=== PATIENT | female | born 1970 | race Caucasian/White ===

== ENCOUNTER 2016-10-22 08:24 | Emergency (ER) | payer OTHER ==
[~2016-10-22] VITALS: Ht 170.1 cm; Wt 106.1 kg
[~2016-10-22 08:24] MED LIST: AMBIEN10 MG PO; ANAPROX DS550 MG PO; ATARAX25 MG PO; AVPAK AZITHROM250 M1 PO; BACTRIM DS 8001 TA1 PO; BUDEPRION XL150 MG PO; CIPRO500 MG PO; CIPROFLOXACIN500 MG PO; CLARITIN10 MG PO; CLEOCIN150 MG PO; CYCLOBENZAPRINE10 MG PO; Carafate1 GM/10 ML PO; DAILY VITE W/IR1 TA1 PO; DAYPRO600 M1 PO; DIOVAN; DYAZIDE 25 MG-31 CAP PO; EES400 MG PO; ELIMITE 5%60 GM PO; FEOSOL,FER300 MG/5 M PO; FERROUS SULFAT325 MG PO; FLEXERIL5 MG PO; FLONASE ALLERG9.9 ML NS; FLOVENT 110 M110 MCG PO; FLOXIN 5 ML5 M1 OT; FLUOXETINE HCL10 MG PO; GABAPENTIN100 M2 PO; GOOD NEIGHBOR L10 MG PO; GOOD SENSE ALLE10 MG PO; HYDROCODONE BIT1 T11 PO; HYDROXYZINE PAM25 MG PO; KEFLEX500 MG PO; LEVAQUIN750 MG PO; LORAZEPAM1 MG PO; MACROBID100 M1 PO; MAGNESIUM OXID400 MG PO; MAPAP325 MG PO; MOTRIN600 MG PO; MOTRIN800 MG PO; Micro K10 MEQ PO; NAPROSYN500 MG PO; NASONEX0.05 MG/AC NS; NORCO 5-325 TA1 EACH PO; OVRAL-21 50 MCG1 TAB PO; Oscal,Oyster S500 MG PEG; PAXIL30 MG PO; PREDNICOT20 MG PO; PREDNISONE20 M1 PO; PREVACID SOLUTA30 MG PEG; PREVACID30 M3 PO; PRILOSEC20 MG PO; PROTONIX40 M1 IV; PROTONIX40 MG PO; PROVENTIL0.09 MG/AC INH; REGLAN5 MG PO; REMERON15 MG PO; RISPERIDONE1 M1 PO; ROBAXIN750 MG PO; SEROQUEL XR400 MG PO; SERTRALINE HYD100 MG PO; TESSALON PERLE200 MG PO; TRAMADOL HCL50 MG PO; TRAZADONE HYDR100 MG PO; ULTRAM50 MG PO; VENTOLIN H0.09 MG/AC INH; VIBRAMYCIN100 MG PO; VICODIN 5/500 505 MG PO; VISTARIL100 MG PO; VITAMIN C500 M1 PO; VITAMIN D2400 IU PO; VITAMIN D31000 IU PEG; VITAMIN D31000 IU PO; VOLTAREN75 MG PO; XANAX0.25 MG PO; ZANTAC150 MG PO; ZESTRIL5 MG PO; ZITHROMAX Z PA250 MG PO; ZITHROMAX250 MG PO; ZOFRAN ODT4 MG SL; ZOLOFT100 MG PO; ZYRTEC10 MG PO; Zestril,Prinivil5 MG PEG; Zofran4 MG PO
[2016-10-22] MEDS ORDERED: TYLENOL325 M1 PO (10:59)
== END 2016-10-22 11:46 | disposition home or self-care (01) ==
LOC: ED 08:24
DX: S09.90XA Unspecified injury of head, initial encounter (principal); M25.511 Pain in right shoulder; M54.2 Cervicalgia; F41.1 Generalized anxiety disorder; J45.909 Unspecified asthma, uncomplicated; F32.9 Major depressive disorder, single episode, unspecified; Z88.0 Allergy status to penicillin; Z88.6 Allergy status to analgesic agent; Z79.899 Other long term (current) drug therapy; W01.0XXA Fall on same level from slipping, tripping and stumbling without subsequent striking against object, initial encounter; Y93.89 Activity, other specified; Y92.89 Other specified places as the place of occurrence of the external cause; Y99.8 Other external cause status

== ENCOUNTER 2016-12-20 19:30 | Emergency (ER) | payer OTHER ==
[~2016-12-20] VITALS: Ht 170.1 cm; Wt 156.5 kg
[~2016-12-20 19:30] MED LIST changes: +TYLENOL325 M1 PO
[2016-12-20] MEDS ORDERED: PHARMASSURE VI500 MG PO (19:38)
[2016-12-20] MEDS ORDERED: BUSPAR5 MG PO (19:38)
[2016-12-20] MEDS ORDERED: HYDROXYZINE PAM50 MG PO (19:38)
[2016-12-20] MEDS ORDERED: FLUOXETINE HCL10 MG PO (19:39)
[2016-12-20] MEDS ORDERED: TRAZADONE HYDR100 MG PO (19:39)
[2016-12-20] MEDS ORDERED: NOVAPLUS V0.09 MG/Ac INH (19:39)
[2016-12-20] MEDS ORDERED: ESCITALOPRAM OX10 MG PO (19:40)
[2016-12-20] MEDS ORDERED: ARIPIPRAZOLE15 MG PO (19:40)
[2016-12-20 20:06] LABS: BASO # 0.1 10*3/uL (0.0-0.1); BASO % 0.6 % (0.0-1.0); EOS # 0.1 10*3/uL (0.0-0.4); EOS % 1.5 % (1.0-4.0); HEMATOCRIT 37.6 % (37.0-47.0); HEMOGLOBIN 11.7 g/dl (12.0-16.0); LYMPH # 1.2 10*3/uL (1.3-4.4); LYMPH % 14.2 % (27.0-41.0); MEAN CELL VOLUME 84.7 fl (81.0-99.0); MEAN CORPUSCULAR HGB 26.4 pg (27.0-31.0); MEAN CORPUSCULAR HGB CONC 31.1 g/dl (33.0-37.0); MEAN PLATELET VOLUME 10.9 fl (9.6-12.3); MONO # 0.5 10*3/uL (0.1-1.0); MONO % 6.2 % (3.0-9.0); NEUT # 6.6 10*3/uL (2.3-7.9); NEUT % 77.3 % (47.0-73.0); PLATELET COUNT AUTOMATED 251 10*3/uL (130-400); RED BLOOD COUNT 4.44 10*6/uL (4.10-5.10); RED CELL DISTRI WIDTH 14.1 % (0-14.5); WHITE BLOOD COUNT 8.5 10*3/uL (4.8-10.8)
[2016-12-20 20:21] LABS: ALBUMIN 3.4 gm/dl (3.1-4.5); ALKALINE PHOSPHATASE 70 U/L (45-117); BILIRUBIN, TOTAL 0.4 mg/dl (0.2-1.0); BUN 12 mg/dl (7-24); C-REACTIVE PROTEIN 0.81 MG/DL (0-0.3); CARBON DIOXIDE 23 mmol/L (21-32); CHLORIDE 107 mmol/L (98-107); EST GLOM FILT AFRICAN AMERICAN > 60 ml/min; GLUCOSE 107 mg/dL (65-99); POTASSIUM 3.9 mmol/L (3.5-5.1); SGOT/AST 21 IU/L (3-35); SGPT/ALT 16 U/L (12-78); SODIUM 142 mmol/L (136-145); TOTAL PROTEIN 7.6 gm/dL (6.4-8.2)
[2016-12-20 20:23] LABS: B-hCG (QUALITATIVE) NEGATIVE (NEGATIVE)
[2016-12-20 20:34] LABS: BILIRUBIN NEGATIVE (NEGATIVE); BLOOD 3+ (NEGATIVE); CLARITY SL CLOUDY (CLEAR); COLOR YELLOW (YELLOW); GLUCOSE NEGATIVE (NEGATIVE); KETONE NEGATIVE (NEGATIVE); LEUKO ESTERASE NEGATIVE (NEGATIVE); NITRITE NEGATIVE (NEGATIVE); PH 5.5 (5.0-9.0); PROTEIN TRACE (NEGATIVE); SPECIFIC GRAVITY >= 1.030 (1.005-1.030)
[2016-12-20 20:40] LABS: BACTERIA 2+; MUCOUS 1+; URINE REFLEX COMMENT YES (NO)
[2016-12-20] MEDS ORDERED: MACROBID100 M1 PO (21:11)
== END 2016-12-20 21:33 | disposition home or self-care (01) ==
LOC: ED 19:30
PROVIDERS: Emergency Medicine Emergency Medical Services
DX: N93.8 Other specified abnormal uterine and vaginal bleeding (principal); D50.0 Iron deficiency anemia secondary to blood loss (chronic); N39.0 Urinary tract infection, site not specified; R31.9 Hematuria, unspecified; E78.00 Pure hypercholesterolemia, unspecified; J45.909 Unspecified asthma, uncomplicated; Z88.0 Allergy status to penicillin; Z88.6 Allergy status to analgesic agent; Z79.899 Other long term (current) drug therapy

== ENCOUNTER → 2016-12-23 | Outpatient (CLI) | payer OTHER ==
[~2016-12-23] MED LIST changes: +ARIPIPRAZOLE15 MG PO; +BUSPAR5 MG PO; +ESCITALOPRAM OX10 MG PO; +HYDROXYZINE PAM50 MG PO; +NOVAPLUS V0.09 MG/Ac INH; +PHARMASSURE VI500 MG PO
[2016-12-23 10:23] LABS: BASO # 0.1 10*3/uL (0.0-0.1); BASO % 0.7 % (0.0-1.0); EOS # 0.1 10*3/uL (0.0-0.4); EOS % 1.6 % (1.0-4.0); HEMOGLOBIN 11.4 g/dl (12.0-16.0); LYMPH # 1.2 10*3/uL (1.3-4.4); LYMPH % 17.7 % (27.0-41.0); MEAN CELL VOLUME 83.7 fl (81.0-99.0); MEAN CORPUSCULAR HGB 26.5 pg (27.0-31.0); MEAN CORPUSCULAR HGB CONC 31.7 g/dl (33.0-37.0); MEAN PLATELET VOLUME 10.9 fl (9.6-12.3); MONO # 0.5 10*3/uL (0.1-1.0); MONO % 6.9 % (3.0-9.0); NEUT # 4.9 10*3/uL (2.3-7.9); NEUT % 72.8 % (47.0-73.0); PLATELET COUNT AUTOMATED 257 10*3/uL (130-400); RED CELL DISTRI WIDTH 14.1 % (0-14.5); WHITE BLOOD COUNT 6.7 10*3/uL (4.8-10.8)
[2016-12-23 10:51] LABS: ALBUMIN 3.4 gm/dl (3.1-4.5); ALKALINE PHOSPHATASE 68 U/L (45-117); BILIRUBIN, TOTAL 0.4 mg/dl (0.2-1.0); BUN 9 mg/dl (7-24); CARBON DIOXIDE 23 mmol/L (21-32); CHLORIDE 106 mmol/L (98-107); CHOLESTEROL 150 mg/dL (<200); EST GLOM FILT AFRICAN AMERICAN > 60 ml/min; GLUCOSE 87 mg/dL (65-99); HDL CHOLESTEROL 36 mg/dl (40-60); LDL CHOLESTEROL 97 mg/dL (9-159); SGOT/AST 27 IU/L (3-35); SGPT/ALT 26 U/L (12-78); SODIUM 138 mmol/L (136-145); TOTAL PROTEIN 7.2 gm/dL (6.4-8.2); TRIGLYCERIDES 86 mg/dl (<150); VLDL CHOLESTEROL 17 mg/dL (6-40)
== END | disposition home or self-care (01) ==
LOC: LAB 09:56 → MAMMO 11:30
PROVIDERS: Internal Medicine
DX: Z12.31 Encounter for screening mammogram for malignant neoplasm of breast (principal); E78.00 Pure hypercholesterolemia, unspecified; I10 Essential (primary) hypertension

== ENCOUNTER 2016-12-28 18:12 | Inpatient (IN) | payer OTHER ==
[~2016-12-28] VITALS: Ht 170.2 cm; Wt 115.3 kg
[2016-12-28 18:30] VITALS: BP 138/72
[2016-12-28 18:47] LABS: BASO # 0.1 10*3/uL (0.0-0.1); BASO % 0.7 % (0.0-1.0); EOS # 0.2 10*3/uL (0.0-0.4); EOS % 2.1 % (1.0-4.0); HEMATOCRIT 35.1 % (37.0-47.0); LYMPH # 1.3 10*3/uL (1.3-4.4); LYMPH % 18.1 % (27.0-41.0); MEAN CELL VOLUME 84.2 fl (81.0-99.0); MEAN CORPUSCULAR HGB 26.4 pg (27.0-31.0); MEAN CORPUSCULAR HGB CONC 31.3 g/dl (33.0-37.0); MEAN PLATELET VOLUME 10.4 fl (9.6-12.3); MONO # 0.5 10*3/uL (0.1-1.0); MONO % 6.7 % (3.0-9.0); NEUT # 5.1 10*3/uL (2.3-7.9); NEUT % 72.1 % (47.0-73.0); PLATELET COUNT AUTOMATED 240 10*3/uL (130-400); RED BLOOD COUNT 4.17 10*6/uL (4.10-5.10); RED CELL DISTRI WIDTH 13.9 % (0-14.5); WHITE BLOOD COUNT 7.1 10*3/uL (4.8-10.8)
[2016-12-28 19:05] LABS: ALBUMIN 3.2 gm/dl (3.1-4.5); ALKALINE PHOSPHATASE 66 U/L (45-117); BILIRUBIN, TOTAL 0.3 mg/dl (0.2-1.0); BUN 14 mg/dl (7-24); CARBON DIOXIDE 27 mmol/L (21-32); CHLORIDE 104 mmol/L (98-107); EST GLOM FILT AFRICAN AMERICAN > 60 ml/min; GLUCOSE 101 mg/dL (65-99); SGOT/AST 15 IU/L (3-35); SGPT/ALT 16 U/L (12-78); SODIUM 138 mmol/L (136-145); TOTAL PROTEIN 6.8 gm/dL (6.4-8.2)
[2016-12-28 19:07] LABS: TROPONIN I < 0.015 ng/ml (<0.045)
[2016-12-28 19:11] VITALS: BP 137/80
[2016-12-28 19:13] LABS: PROTHROMBIN TIME 10.3 SECONDS (9.0-12.4)
[2016-12-28 20:00] VITALS: BP 139/75
[2016-12-28 20:06] VITALS: BP 125/78
[2016-12-28 20:45] VITALS: BP 132/74
[2016-12-29] VITALS: BP 113/66
[2016-12-29 06:27] LABS: BASO % 0.7 % (0.0-1.0); EOS # 0.1 10*3/uL (0.0-0.4); EOS % 1.8 % (1.0-4.0); LYMPH # 1.2 10*3/uL (1.3-4.4); MEAN CELL VOLUME 83.9 fl (81.0-99.0); MEAN CORPUSCULAR HGB 26.4 pg (27.0-31.0); MEAN CORPUSCULAR HGB CONC 31.4 g/dl (33.0-37.0); MEAN PLATELET VOLUME 11.2 fl (9.6-12.3); MONO # 0.5 10*3/uL (0.1-1.0); MONO % 7.8 % (3.0-9.0); NEUT # 4.1 10*3/uL (2.3-7.9); NEUT % 69.2 % (47.0-73.0); PLATELET COUNT AUTOMATED 233 10*3/uL (130-400); RED BLOOD COUNT 4.17 10*6/uL (4.10-5.10); RED CELL DISTRI WIDTH 13.9 % (0-14.5)
[2016-12-29 07:00] LABS: BUN 13 mg/dl (7-24); CARBON DIOXIDE 27 mmol/L (21-32); CHLORIDE 108 mmol/L (98-107); CHOLESTEROL 162 mg/dL (<200); EST GLOM FILT AFRICAN AMERICAN > 60 ml/min; GLUCOSE 92 mg/dL (65-99); MAGNESIUM 2.2 mg/dL (1.5-2.1); PHOSPHOROUS 4.1 mg/dL (2.5-4.9); POTASSIUM 4.3 mmol/L (3.5-5.1); PROTHROMBIN TIME 10.5 SECONDS (9.0-12.4); SGOT/AST 12 IU/L (3-35); SGPT/ALT 17 U/L (12-78); SODIUM 142 mmol/L (136-145); TRIGLYCERIDES 78 mg/dl (<150); VLDL CHOLESTEROL 16 mg/dL (6-40)
[2016-12-29 07:08] LABS: ALKALINE PHOSPHATASE 59 U/L (45-117); BILIRUBIN, TOTAL 0.3 mg/dl (0.2-1.0); FREE T4 0.96 ng/dl (0.76-1.46); HDL CHOLESTEROL 40 mg/dl (40-60); LDL CHOLESTEROL 106 mg/dL (9-159); TOTAL PROTEIN 6.7 gm/dL (6.4-8.2)
[2016-12-29 07:38] LABS: FOLIC ACID 5.84 ng/mL (>5.38); VITAMIN D, 25-HYDROXY 9.7 ng/mL (30-100)
[2016-12-29 08:00] VITALS: BP 109/69
[2016-12-29] MEDS ORDERED: D-1000 185 MG-11 TAB PO (11:51)
[2016-12-29 12:00] VITALS: BP 119/83
== END 2016-12-29 13:07 | disposition home or self-care (01) | DRG 313 ==
LOC: ED 18:12 → 5E 19:48 → EDHOLD 19:48 → 5E 20:35
PROVIDERS: Emergency Medicine; Hospitalist
DX: R07.89 Other chest pain (principal); E44.0 Moderate protein-calorie malnutrition; K27.9 Peptic ulcer, site unspecified, unspecified as acute or chronic, without hemorrhage or perforation; D64.9 Anemia, unspecified; J45.909 Unspecified asthma, uncomplicated; F41.1 Generalized anxiety disorder; F33.41 Major depressive disorder, recurrent, in partial remission; E55.9 Vitamin D deficiency, unspecified; I10 Essential (primary) hypertension; Z88.0 Allergy status to penicillin; Z88.6 Allergy status to analgesic agent; Z82.49 Family history of ischemic heart disease and other diseases of the circulatory system; Z86.73 Personal history of transient ischemic attack (TIA), and cerebral infarction without residual deficits; Z82.0 Family history of epilepsy and other diseases of the nervous system; Z98.51 Tubal ligation status; Z87.891 Personal history of nicotine dependence; Z79.51 Long term (current) use of inhaled steroids; Z79.899 Other long term (current) drug therapy; Z68.39 Body mass index [BMI] 39.0-39.9, adult

== ENCOUNTER 2017-02-02 14:47 | Emergency (ER) | payer OTHER ==
[~2017-02-02] VITALS: Ht 170.1 cm; Wt 104.3 kg
[~2017-02-02 14:47] MED LIST changes: +D-1000 185 MG-11 TAB PO
[2017-02-02] MEDS ORDERED: Kenalog 0.5% Cr15 GM T (15:35)
[2017-02-02] MEDS ORDERED: CLINDAMYCIN HC300 MG PO (15:35)
== END 2017-02-02 18:03 | disposition home or self-care (01) ==
LOC: ED 14:47
DX: S40.862A Insect bite (nonvenomous) of left upper arm, initial encounter (principal); S40.861A Insect bite (nonvenomous) of right upper arm, initial encounter; S80.862A Insect bite (nonvenomous), left lower leg, initial encounter; S80.861A Insect bite (nonvenomous), right lower leg, initial encounter; S50.811A Abrasion of right forearm, initial encounter; Z88.6 Allergy status to analgesic agent; Z88.0 Allergy status to penicillin; Z79.899 Other long term (current) drug therapy; Z87.891 Personal history of nicotine dependence; W57.XXXA Bitten or stung by nonvenomous insect and other nonvenomous arthropods, initial encounter; W54.0XXA Bitten by dog, initial encounter; Y93.9 Activity, unspecified; Y92.9 Unspecified place or not applicable; Y99.9 Unspecified external cause status

== ENCOUNTER 2017-02-13 19:28 | Emergency (ER) | payer OTHER ==
[~2017-02-13] VITALS: Ht 170.1 cm; Wt 99.8 kg
[~2017-02-13 19:28] MED LIST changes: +CLINDAMYCIN HC300 MG PO; +Kenalog 0.5% Cr15 GM T
[2017-02-13] MEDS ORDERED: CYCLOBENZAPRINE10 MG PO (20:22)
== END 2017-02-13 20:30 | disposition home or self-care (01) ==
LOC: ED 19:28
DX: M25.512 Pain in left shoulder (principal); J45.909 Unspecified asthma, uncomplicated; I10 Essential (primary) hypertension; E78.00 Pure hypercholesterolemia, unspecified; Z87.11 Personal history of peptic ulcer disease; Z86.73 Personal history of transient ischemic attack (TIA), and cerebral infarction without residual deficits; Z98.51 Tubal ligation status; Z98.890 Other specified postprocedural states; Z87.891 Personal history of nicotine dependence; Z79.899 Other long term (current) drug therapy; Z88.0 Allergy status to penicillin; Z88.6 Allergy status to analgesic agent; W07.XXXA Fall from chair, initial encounter; Y93.89 Activity, other specified; Y92.89 Other specified places as the place of occurrence of the external cause; Y99.9 Unspecified external cause status

== ENCOUNTER 2017-03-03 19:42 | Emergency (ER) | payer OTHER ==
[~2017-03-03] VITALS: Ht 170.1 cm; Wt 108.4 kg
== END 2017-03-03 22:23 | disposition home or self-care (01) ==
LOC: ED 19:42
DX: S80.11XA Contusion of right lower leg, initial encounter (principal); G62.9 Polyneuropathy, unspecified; Z88.0 Allergy status to penicillin; Z88.6 Allergy status to analgesic agent; Z79.899 Other long term (current) drug therapy; Z87.891 Personal history of nicotine dependence; W18.39XA Other fall on same level, initial encounter; Y93.89 Activity, other specified; Y92.481 Parking lot as the place of occurrence of the external cause; Y99.8 Other external cause status

== ENCOUNTER 2017-04-01 07:45 | Emergency (ER) | payer OTHER ==
[~2017-04-01] VITALS: Ht 170.1 cm; Wt 96.6 kg
[2017-04-01] MEDS ORDERED: EQ SINUS CONGE1 EAC1 PO (08:05)
== END 2017-04-01 08:08 | disposition home or self-care (01) ==
LOC: ED 07:45
DX: J06.9 Acute upper respiratory infection, unspecified (principal); Z87.891 Personal history of nicotine dependence; I10 Essential (primary) hypertension; E78.00 Pure hypercholesterolemia, unspecified; Z86.73 Personal history of transient ischemic attack (TIA), and cerebral infarction without residual deficits; Z88.0 Allergy status to penicillin; Z88.6 Allergy status to analgesic agent

== ENCOUNTER 2017-04-22 13:00 | Inpatient (IN) | payer OTHER ==
[~2017-04-22] VITALS: Ht 170.2 cm; Wt 113.9 kg
[~2017-04-22 13:00] MED LIST changes: +EQ SINUS CONGE1 EAC1 PO
[2017-04-22 13:05] VITALS: BP 142/89
[2017-04-22 13:19] LABS: BILIRUBIN NEGATIVE (NEGATIVE); BLOOD NEGATIVE (NEGATIVE); CLARITY CLEAR (CLEAR); COLOR YELLOW (YELLOW); GLUCOSE NEGATIVE (NEGATIVE); KETONE NEGATIVE (NEGATIVE); LEUKO ESTERASE NEGATIVE (NEGATIVE); NITRITE NEGATIVE (NEGATIVE); SPECIFIC GRAVITY <= 1.005 (1.005-1.030); UROBILINOGEN 0.2 E.U./dl (0.2-1.0)
[2017-04-22 13:44] LABS: WBC 0-2 wbc/hpf (0-5)
[2017-04-22 13:55] LABS: BASO % 0.3 % (0.0-1.0); HEMATOCRIT 35.8 % (37.0-47.0); HEMOGLOBIN 11.2 g/dl (12.0-16.0); LYMPH # 0.5 10*3/uL (1.3-4.4); LYMPH % 7.4 % (27.0-41.0); MEAN CORPUSCULAR HGB 25.3 pg (27.0-31.0); MEAN CORPUSCULAR HGB CONC 31.3 g/dl (33.0-37.0); MEAN PLATELET VOLUME 10.8 fl (9.6-12.3); MONO # 0.3 10*3/uL (0.1-1.0); MONO % 4.3 % (3.0-9.0); NEUT # 5.7 10*3/uL (2.3-7.9); NEUT % 87.2 % (47.0-73.0); PLATELET COUNT AUTOMATED 227 10*3/uL (130-400); RED BLOOD COUNT 4.42 10*6/uL (4.10-5.10); WHITE BLOOD COUNT 6.5 10*3/uL (4.8-10.8)
[2017-04-22 14:01] LABS: ACT PARTIAL THROMBO TIME 26.9 SECONDS (20.8-31.5)
[2017-04-22 14:09] LABS: ALBUMIN 3.2 gm/dl (3.1-4.5); ALKALINE PHOSPHATASE 63 U/L (45-117); BETA-HCG, QUANT < 1.0 mIU/mL (1-3); BUN 10 mg/dl (7-24); CHLORIDE 105 mmol/L (98-107); CREATININE 0.68 mg/dL (0.55-1.02); LIPASE 88 U/L (73-393); MAGNESIUM 1.9 mg/dL (1.5-2.1); SGOT/AST 13 IU/L (3-35); SGPT/ALT 14 U/L (12-78); SODIUM 136 mmol/L (136-145); TOTAL PROTEIN 6.8 gm/dL (6.4-8.2); TROPONIN I < 0.015 ng/ml (<0.045)
--- NOTE | 2017-04-22 15:45 | NUR ---
A 47, admitted to 5E, under the services of ROHAN Gomez DO with a diagnosis of CHEST PAIN, R/O NE, RIB PAIN WITH COUGH AND N/V X 1 WEEK. Chief complaint is N/V SINCE YESTERDAY MORNING. STATES COUGH AND CHEST PAIN FROM COUGHING X 1 WEEK CHILLS/FEVER ON AND OFF. Patient arrived via stretcher from ER. Monitor applied. Initial assessment completed. Vital signs taken and recorded. ROHAN GOMEZ DO notified of admission to the unit. Orders received. See assessment for past medical history, medications and allergies. Patient and/or family oriented to unit. [address] visitation policy reviewed. Clothing/patient valuable form completed. AUTUMN MORRIS
[2017-04-22 16:00] VITALS: BP 143/78
[2017-04-22] MEDS ORDERED: PROVENTIL HFA6.7 GM INH (16:49)
[2017-04-22] MEDS ORDERED: PEPCID20 MG PO (16:51)
[2017-04-22] MEDS ORDERED: VERAPAMIL HCL120 M1 PO (16:52)
[2017-04-22] MEDS ORDERED: NEURONTIN600 MG PO (16:53)
[2017-04-22] MEDS ORDERED: CLONAZEPAM0.5 M1 PO (16:54)
[2017-04-22] MEDS ORDERED: DULOXETINE HCL30 MG PO (16:54)
[2017-04-22] MEDS ORDERED: FLOVENT HFA12 G1 INH (16:56)
--- NOTE | 2017-04-22 16:58 | NUR ---
MEDS VERIFIED WITH [facility]
--- NOTE | 2017-04-22 17:00 | NUR ---
NOTIFIED DR WAGONER'S ANSWERING SERVICE ABOUT CONSULT
--- NOTE | 2017-04-22 17:10 | NUR ---
NOTIFIED DR ALCOCER THAT MEDS WERE VERIFIED
--- NOTE | 2017-04-22 18:16 | NUR ---
PATIENT MEDICATED WITH PO TYLENOL FOR A HEADACHE RATED 3/10
--- NOTE | 2017-04-22 18:20 | NUR ---
CALLED PHARMACY ABOUT DONATELL ELIXIR. PHARMACY STATED THEY WOULD TUBE IT
[2017-04-22 20:00] VITALS: BP 101/55
--- NOTE | 2017-04-22 20:14 | NUR ---
EVE ARORA CP, BRANDEND, AND SOB AT THIS TIME. PATIENT DID STATE SHE HAS PAIN IN HER MID BACK AND LEFT SHOULDER. PAIN MEDICATIO WILL BE GIVEN WITH NIGHT TIME MEDICATIONS. NO OTHER CONCERNS FROM PATIENTS.
--- NOTE | 2017-04-22 23:00 | NUR ---
PATIENT RESTING IN BED WITH EYES CLOSED BILATERALLY. RESPIRATIONS ARE EASY AND REGULAR. NO S/S OF PAIN OR DISCOMFORT. CALL LIGHT IS IN REACH.
--- NOTE | 2017-04-22 23:28 | NUR ---
CHART CHECK COMPLETED AT THIS TIME.
[2017-04-23] VITALS: BP 101/55
--- NOTE | 2017-04-23 00:24 | NUR ---
PATIENT RESTING IN BED WITH EYS CLOSED BILATERALLY. RESPIRAITONS ARE EASY AND REGULAR. NO S/S OF DISCOMFORT. CALL LIGHT IS IN REACH.
--- NOTE | 2017-04-23 05:27 | NUR ---
PATIENT AROUSES EASILY FOR MORNING MEDICATIONS AT THIS TIME. ALERT AND ORIENTED. PATIENT VERBALIZED C/O BACK AND SHOULDER PAIN RATES THIS PAIN 6/10 ON PAIN SCALE. DESCRIBES PAIN ACHY. PRN NORCO GIVEN AT THIS TIME . CALL LIGHT IS IN REACH.
[2017-04-23 06:18] LABS: BASO % 0.6 % (0.0-1.0); EOS # 0.1 10*3/uL (0.0-0.4); EOS % 1.7 % (1.0-4.0); HEMATOCRIT 32.8 % (37.0-47.0); HEMOGLOBIN 10.2 g/dl (12.0-16.0); LYMPH # 0.8 10*3/uL (1.3-4.4); LYMPH % 22.8 % (27.0-41.0); MEAN CELL VOLUME 82.8 fl (81.0-99.0); MEAN CORPUSCULAR HGB 25.8 pg (27.0-31.0); MEAN CORPUSCULAR HGB CONC 31.1 g/dl (33.0-37.0); MEAN PLATELET VOLUME 11.2 fl (9.6-12.3); MONO # 0.3 10*3/uL (0.1-1.0); MONO % 9.5 % (3.0-9.0); NEUT # 2.2 10*3/uL (2.3-7.9); NEUT % 64.8 % (47.0-73.0); PLATELET COUNT AUTOMATED 167 10*3/uL (130-400); RED BLOOD COUNT 3.96 10*6/uL (4.10-5.10); RED CELL DISTRI WIDTH 14.1 % (0-14.5); WHITE BLOOD COUNT 3.5 10*3/uL (4.8-10.8)
[2017-04-23 06:31] LABS: ALBUMIN 2.8 gm/dl (3.1-4.5); ALKALINE PHOSPHATASE 58 U/L (45-117); BUN 8 mg/dl (7-24); CHLORIDE 105 mmol/L (98-107); CHOLESTEROL 118 mg/dL (<200); CREATININE 0.65 mg/dL (0.55-1.02); MAGNESIUM 2.1 mg/dL (1.5-2.1); PHOSPHOROUS 3.5 mg/dL (2.5-4.9); POTASSIUM 3.6 mmol/L (3.5-5.1); SGOT/AST 13 IU/L (3-35); SGPT/ALT 13 U/L (12-78); SODIUM 135 mmol/L (136-145); TOTAL PROTEIN 6.3 gm/dL (6.4-8.2); TRIGLYCERIDES 90 mg/dl (<150); VLDL CHOLESTEROL 18 mg/dL (6-40)
[2017-04-23 06:33] LABS: HDL CHOLESTEROL 27 mg/dl (40-60); LDL CHOLESTEROL 73 mg/dL (9-159)
--- NOTE | 2017-04-23 07:42 | NUR ---
Shift chart check completed.
[2017-04-23 08:00] VITALS: BP 90/56
[2017-04-23 08:35] LABS: VITAMIN D, 25-HYDROXY 6.5 ng/mL (30-100)
[2017-04-23] MEDS ORDERED: PROTONIX40 MG PO (12:00)
[2017-04-23] MEDS ORDERED: VITAMIN D31000 UNI1 PO (12:00)
--- NOTE | 2017-04-23 12:26 | NUR ---
PER ISAIAH VALENTINE TO D/C PATIENT WITHOUT SEEING CARDIOLOGY.
--- NOTE | 2017-04-23 13:23 | NUR ---
WENT OVER D/C INSTRUCTIONS WITH PATIENT. REMOVED IV WITH CATHETER INTACT AND BLEEDING CONTROLLED. PATIENT VERBALIZED UNDERSTANDING THAT SCRIPTS WERE SENT TO PHARMACY. PATIENT AMBULATED TO THE EXIT. PATIENT IS D/C HOME.
== END 2017-04-23 13:17 | disposition home or self-care (01) | DRG 193 ==
LOC: ED 13:00 → EDHOLD 14:47 → 5E 15:23
PROVIDERS: Emergency Medicine; Internal Medicine; ADMIT Internal Medicine
DX: J18.9 Pneumonia, unspecified organism (principal); E43 Unspecified severe protein-calorie malnutrition; R65.10 Systemic inflammatory response syndrome (SIRS) of non-infectious origin without acute organ dysfunction; E87.1 Hypo-osmolality and hyponatremia; F33.9 Major depressive disorder, recurrent, unspecified; Z93.1 Gastrostomy status; K21.9 Gastro-esophageal reflux disease without esophagitis; I10 Essential (primary) hypertension; D64.9 Anemia, unspecified; D72.810 Lymphocytopenia; E78.00 Pure hypercholesterolemia, unspecified; J45.909 Unspecified asthma, uncomplicated; F41.1 Generalized anxiety disorder; E55.9 Vitamin D deficiency, unspecified; E66.3 Overweight; E56.9 Vitamin deficiency, unspecified; Z88.0 Allergy status to penicillin; R07.89 Other chest pain; H54.40 Blindness, one eye, unspecified eye; Z88.8 Allergy status to other drugs, medicaments and biological substances; Z79.899 Other long term (current) drug therapy; Z86.73 Personal history of transient ischemic attack (TIA), and cerebral infarction without residual deficits; Z87.11 Personal history of peptic ulcer disease; Z87.440 Personal history of urinary (tract) infections; Z98.51 Tubal ligation status; Z87.891 Personal history of nicotine dependence; Z82.49 Family history of ischemic heart disease and other diseases of the circulatory system; Z83.3 Family history of diabetes mellitus; Z81.8 Family history of other mental and behavioral disorders; Z80.8 Family history of malignant neoplasm of other organs or systems; Z68.39 Body mass index [BMI] 39.0-39.9, adult

== ENCOUNTER 2017-05-16 19:36 | Emergency (ER) | payer OTHER ==
[~2017-05-16] VITALS: Ht 170.1 cm; Wt 104.3 kg
[~2017-05-16 19:36] MED LIST changes: +CLONAZEPAM0.5 M1 PO; +DULOXETINE HCL30 MG PO; +FLOVENT HFA12 G1 INH; +NEURONTIN600 MG PO; +PEPCID20 MG PO; +PROVENTIL HFA6.7 GM INH; +VERAPAMIL HCL120 M1 PO; +VITAMIN D31000 UNI1 PO
[2017-05-16] MEDS ORDERED: ZITHROMAX250 MG PO (20:20)
[2017-05-16] MEDS ORDERED: TESSALON PERLE100 M1 PO (20:20)
== END 2017-05-16 20:21 | disposition home or self-care (01) ==
LOC: ED 19:36
DX: H66.92 Otitis media, unspecified, left ear (principal); J06.9 Acute upper respiratory infection, unspecified; Z87.891 Personal history of nicotine dependence; Z98.51 Tubal ligation status; Z79.899 Other long term (current) drug therapy; Z88.0 Allergy status to penicillin; Z88.6 Allergy status to analgesic agent

== ENCOUNTER 2017-05-22 19:39 | Emergency (ER) | payer OTHER ==
[~2017-05-22] VITALS: Ht 170.1 cm; Wt 104.3 kg
[~2017-05-22 19:39] MED LIST changes: +TESSALON PERLE100 M1 PO
[2017-05-22] MEDS ORDERED: FLONASE ALLERG9.9 ML NAS (21:03)
[2017-05-22] MEDS ORDERED: CLARITIN10 MG PO (21:03)
[2017-05-22] MEDS ORDERED: PROAIR HFA8.5 GM INH (21:03)
== END 2017-05-22 21:08 | disposition home or self-care (01) ==
LOC: ED 19:39
DX: J06.9 Acute upper respiratory infection, unspecified (principal); Z87.891 Personal history of nicotine dependence; Z88.0 Allergy status to penicillin; Z88.6 Allergy status to analgesic agent

== ENCOUNTER → 2017-06-13 | Outpatient (CLI) | payer OTHER ==
[~2017-06-13] MED LIST changes: +FLONASE ALLERG9.9 ML NAS; +PROAIR HFA8.5 GM INH
== END | disposition home or self-care (01) ==
LOC: CARD 07:45
DX: R06.09 Other forms of dyspnea (principal)

== ENCOUNTER → 2017-08-03 | Outpatient (CLI) | payer OTHER ==
[2017-08-03 08:47] LABS: BASO # 0.1 10*3/uL (0.0-0.1); BASO % 0.7 % (0.0-1.0); EOS # 0.1 10*3/uL (0.0-0.4); EOS % 1.1 % (1.0-4.0); HEMATOCRIT 35.8 % (37.0-47.0); HEMOGLOBIN 11.6 g/dl (12.0-16.0); LYMPH # 1.3 10*3/uL (1.3-4.4); LYMPH % 16.6 % (27.0-41.0); MEAN CELL VOLUME 82.5 fl (81.0-99.0); MEAN CORPUSCULAR HGB 26.7 pg (27.0-31.0); MEAN CORPUSCULAR HGB CONC 32.4 g/dl (33.0-37.0); MEAN PLATELET VOLUME 11.1 fl (9.6-12.3); MONO # 0.5 10*3/uL (0.1-1.0); NEUT # 5.6 10*3/uL (2.3-7.9); NEUT % 74.3 % (47.0-73.0); PLATELET COUNT AUTOMATED 240 10*3/uL (130-400); RED BLOOD COUNT 4.34 10*6/uL (4.10-5.10); RED CELL DISTRI WIDTH 14.6 % (0-14.5); WHITE BLOOD COUNT 7.6 10*3/uL (4.8-10.8)
[2017-08-03 08:58] LABS: ALBUMIN 3.5 gm/dl (3.1-4.5); ALKALINE PHOSPHATASE 63 U/L (45-117); BUN 16 mg/dl (7-24); CHLORIDE 105 mmol/L (98-107); CHOLESTEROL 154 mg/dL (<200); CREATININE 0.65 mg/dL (0.55-1.02); HDL CHOLESTEROL 39 mg/dl (40-60); LDL CHOLESTEROL 100 mg/dL (9-159); SGOT/AST 15 IU/L (3-35); SGPT/ALT 16 U/L (12-78); SODIUM 140 mmol/L (136-145); TOTAL PROTEIN 7.4 gm/dL (6.4-8.2); TRIGLYCERIDES 76 mg/dl (<150); VLDL CHOLESTEROL 15 mg/dL (6-40)
== END | disposition home or self-care (01) ==
LOC: LAB 08:06
PROVIDERS: Internal Medicine
DX: I10 Essential (primary) hypertension (principal); E78.00 Pure hypercholesterolemia, unspecified; G60.9 Hereditary and idiopathic neuropathy, unspecified

== ENCOUNTER 2017-08-28 07:29 | Emergency (ER) | payer OTHER ==
[~2017-08-28] VITALS: Ht 170.1 cm; Wt 113.4 kg
[2017-08-28] MEDS ORDERED: VIBRAMYCIN100 MG PO (09:21)
== END 2017-08-28 09:35 | disposition home or self-care (01) ==
LOC: ED 07:29
DX: J20.9 Acute bronchitis, unspecified (principal); J45.909 Unspecified asthma, uncomplicated; I10 Essential (primary) hypertension; F41.1 Generalized anxiety disorder; E78.00 Pure hypercholesterolemia, unspecified; F32.9 Major depressive disorder, single episode, unspecified; Z88.0 Allergy status to penicillin; Z88.8 Allergy status to other drugs, medicaments and biological substances; Z79.899 Other long term (current) drug therapy; Z86.73 Personal history of transient ischemic attack (TIA), and cerebral infarction without residual deficits; Z68.29 Body mass index [BMI] 29.0-29.9, adult

== ENCOUNTER 2017-10-07 11:48 | Emergency (ER) | payer OTHER ==
[2017-10-07] MEDS ORDERED: ZITHROMAX250 MG PO (13:45)
== END 2017-10-07 13:57 | disposition home or self-care (01) ==
LOC: ED 11:48
DX: J40 Bronchitis, not specified as acute or chronic (principal); E78.00 Pure hypercholesterolemia, unspecified; J45.909 Unspecified asthma, uncomplicated; I10 Essential (primary) hypertension; F32.9 Major depressive disorder, single episode, unspecified; Z88.8 Allergy status to other drugs, medicaments and biological substances; Z88.0 Allergy status to penicillin; Z79.899 Other long term (current) drug therapy; Z68.29 Body mass index [BMI] 29.0-29.9, adult

== ENCOUNTER 2017-10-25 08:32 | Emergency (ER) | payer OTHER ==
[~2017-10-25] VITALS: Ht 170.1 cm; Wt 113.9 kg
[2017-10-25] MEDS ORDERED: BACITRACIN ZIN0.9 GM T (09:48)
[2017-10-25] MEDS ORDERED: NAPROSYN500 MG PO (09:48)
== END 2017-10-25 09:56 | disposition home or self-care (01) ==
LOC: ED 08:32
DX: S80.02XA Contusion of left knee, initial encounter (principal); S50.12XA Contusion of left forearm, initial encounter; M25.562 Pain in left knee; I10 Essential (primary) hypertension; E66.01 Morbid (severe) obesity due to excess calories; J45.909 Unspecified asthma, uncomplicated; E78.00 Pure hypercholesterolemia, unspecified; Z88.0 Allergy status to penicillin; Z88.6 Allergy status to analgesic agent; Z79.899 Other long term (current) drug therapy; Z86.73 Personal history of transient ischemic attack (TIA), and cerebral infarction without residual deficits; Z68.29 Body mass index [BMI] 29.0-29.9, adult; W18.39XA Other fall on same level, initial encounter; Y93.01 Activity, walking, marching and hiking; Y92.89 Other specified places as the place of occurrence of the external cause; Y99.8 Other external cause status

== ENCOUNTER → 2017-12-21 | Outpatient (CLI) | payer OTHER ==
[~2017-12-21] MED LIST changes: +AMINOPHYLLIN200 MG PO; +ASMANEX220 MC1 INH; +BACITRACIN ZIN0.9 GM T; +DOXYCYCLINE100 M3 PO; +DUONEB 3 MG/3 ML3 M1 INH; +IRON325 M1 PO; +LIPITOR10 MG PO; +LYRICA150 M1 PO; +NORCO 10-325 T1 EACH PO; +OMEPRAZOLE D/R20 MG PO; +OYSTER SHELL 51 EACH PO; +REXULTI3 MG PO; +TRINTELLIX20 MG PO; +VITAMIN D22000 UNIT PO
== END | disposition home or self-care (01) ==
LOC: RAD 13:50
DX: J40 Bronchitis, not specified as acute or chronic (principal)

== ENCOUNTER 2017-12-23 18:46 | Emergency (ER) | payer OTHER ==
[~2017-12-23] VITALS: Ht 170.1 cm; Wt 84.8 kg
[~2017-12-23 18:46] MED LIST changes: -AMINOPHYLLIN200 MG PO; -ASMANEX220 MC1 INH; -DOXYCYCLINE100 M3 PO; -DUONEB 3 MG/3 ML3 M1 INH; -IRON325 M1 PO; -LIPITOR10 MG PO; -LYRICA150 M1 PO; -NORCO 10-325 T1 EACH PO; -OMEPRAZOLE D/R20 MG PO; -OYSTER SHELL 51 EACH PO; -REXULTI3 MG PO; -TRINTELLIX20 MG PO; -VITAMIN D22000 UNIT PO
[2017-12-23] MEDS ORDERED: TESSALON PERLE100 M1 PO (19:33)
[2017-12-23] MEDS ORDERED: AMINOPHYLLIN200 MG PO (19:33)
[2017-12-23] MEDS ORDERED: CLARITIN10 MG PO (19:33)
== END 2017-12-23 19:40 | disposition home or self-care (01) ==
LOC: ED 18:46
DX: R42 Dizziness and giddiness (principal); T36.3X5A Adverse effect of macrolides, initial encounter; J40 Bronchitis, not specified as acute or chronic; J01.00 Acute maxillary sinusitis, unspecified; I10 Essential (primary) hypertension; E78.00 Pure hypercholesterolemia, unspecified; E66.3 Overweight; Z68.29 Body mass index [BMI] 29.0-29.9, adult; Z87.11 Personal history of peptic ulcer disease; Z87.891 Personal history of nicotine dependence; Z86.73 Personal history of transient ischemic attack (TIA), and cerebral infarction without residual deficits; Z98.51 Tubal ligation status; Z79.899 Other long term (current) drug therapy; Z88.0 Allergy status to penicillin; Z88.6 Allergy status to analgesic agent; Y92.9 Unspecified place or not applicable

== ENCOUNTER 2017-12-25 09:58 | Emergency (ER) | payer OTHER ==
[~2017-12-25] VITALS: Ht 170.1 cm; Wt 130.2 kg
[~2017-12-25 09:58] MED LIST changes: +AMINOPHYLLIN200 MG PO
[2017-12-25] MEDS ORDERED: NORCO 10-325 T1 EACH PO (11:21)
== END 2017-12-25 11:24 | disposition home or self-care (01) ==
LOC: ED 09:58
DX: S22.31XA Fracture of one rib, right side, initial encounter for closed fracture (principal); Z88.0 Allergy status to penicillin; Z88.6 Allergy status to analgesic agent; Z79.899 Other long term (current) drug therapy; Z87.891 Personal history of nicotine dependence; X58.XXXA Exposure to other specified factors, initial encounter; Y93.89 Activity, other specified; Y92.89 Other specified places as the place of occurrence of the external cause; Y99.8 Other external cause status

== ENCOUNTER 2018-01-02 16:02 | Inpatient (IN) | payer OTHER ==
[~2018-01-02] VITALS: Ht 170.2 cm; Wt 117.3 kg
[~2018-01-02 16:02] MED LIST changes: +NORCO 10-325 T1 EACH PO
[2018-01-02 16:04] VITALS: BP 118/60
[2018-01-02 16:54] LABS: BILIRUBIN NEGATIVE (NEGATIVE); BLOOD NEGATIVE (NEGATIVE); CLARITY CLEAR (CLEAR); COLOR YELLOW (YELLOW); GLUCOSE NEGATIVE (NEGATIVE); KETONE NEGATIVE (NEGATIVE); LEUKO ESTERASE NEGATIVE (NEGATIVE); NITRITE NEGATIVE (NEGATIVE); UROBILINOGEN 0.2 E.U./dl (0.2-1.0)
[2018-01-02 17:05] LABS: RBC 0-2 rbc/hpf (0-2)
[2018-01-02 17:10] LABS: BASO % 0.4 % (0.0-1.0); EOS # 0.2 10*3/uL (0.0-0.4); EOS % 1.7 % (1.0-4.0); HEMOGLOBIN 9.7 g/dl (12.0-16.0); LYMPH # 1.2 10*3/uL (1.3-4.4); LYMPH % 12.9 % (27.0-41.0); MEAN CELL VOLUME 82.9 fl (81.0-99.0); MEAN CORPUSCULAR HGB 25.1 pg (27.0-31.0); MEAN CORPUSCULAR HGB CONC 30.3 g/dl (33.0-37.0); MONO # 0.5 10*3/uL (0.1-1.0); MONO % 5.4 % (3.0-9.0); NEUT # 7.6 10*3/uL (2.3-7.9); NEUT % 79.4 % (47.0-73.0); PLATELET COUNT AUTOMATED 236 10*3/uL (130-400); RED BLOOD COUNT 3.86 10*6/uL (4.10-5.10); RED CELL DISTRI WIDTH 15.6 % (0-14.5); WHITE BLOOD COUNT 9.5 10*3/uL (4.8-10.8)
[2018-01-02 18:47] VITALS: BP 103/43
[2018-01-02 19:05] LABS: ALBUMIN 3.2 gm/dl (3.1-4.5); ALKALINE PHOSPHATASE 82 U/L (45-117); BUN 14 mg/dl (7-24); CHLORIDE 108 mmol/L (98-107); LIPASE 101 U/L (73-393); POTASSIUM 3.9 mmol/L (3.5-5.1); SGOT/AST 23 IU/L (3-35); SGPT/ALT 22 U/L (12-78); SODIUM 140 mmol/L (136-145); TOTAL PROTEIN 7.5 gm/dL (6.4-8.2)
[2018-01-02 19:40] VITALS: BP 107/49
[2018-01-02 20:00] VITALS: BP 129/82
[2018-01-02 20:21] VITALS: BP 129/82
[2018-01-03] VITALS: BP 112/61
[2018-01-03 07:17] LABS: HEMATOCRIT 33.5 % (37.0-47.0); HEMOGLOBIN 10.2 g/dl (12.0-16.0); LYMPH # 0.5 10*3/uL (1.3-4.4); MEAN CELL VOLUME 81.9 fl (81.0-99.0); MEAN CORPUSCULAR HGB 24.9 pg (27.0-31.0); MEAN CORPUSCULAR HGB CONC 30.4 g/dl (33.0-37.0); MEAN PLATELET VOLUME 11.2 fl (9.6-12.3); MONO # 0.1 10*3/uL (0.1-1.0); MONO % 1.5 % (3.0-9.0); NEUT # 5.2 10*3/uL (2.3-7.9); NEUT % 88.6 % (47.0-73.0); PLATELET COUNT AUTOMATED 251 10*3/uL (130-400); RED BLOOD COUNT 4.09 10*6/uL (4.10-5.10); RED CELL DISTRI WIDTH 15.3 % (0-14.5); WHITE BLOOD COUNT 5.8 10*3/uL (4.8-10.8)
[2018-01-03 07:43] LABS: BUN 12 mg/dl (7-24); CHLORIDE 108 mmol/L (98-107); CREATININE 0.54 mg/dL (0.55-1.02); IRON 22 ug/dL (50-170); POTASSIUM 4.2 mmol/L (3.5-5.1); SODIUM 137 mmol/L (136-145); TOTAL IRON BINDING CAPACITY 278 ug/dl (250-450)
[2018-01-03 08:00] VITALS: BP 112/64
[2018-01-03] MEDS ORDERED: ASMANEX220 MC1 INH (10:00)
[2018-01-03] MEDS ORDERED: TRINTELLIX20 MG PO (10:01)
[2018-01-03] MEDS ORDERED: LYRICA150 M1 PO (10:03)
[2018-01-03] MEDS ORDERED: OMEPRAZOLE D/R20 MG PO (10:05)
[2018-01-03] MEDS ORDERED: REXULTI3 MG PO (10:09)
[2018-01-03] MEDS ORDERED: DUONEB 3 MG/3 ML3 M1 INH (10:10)
[2018-01-03] MEDS ORDERED: IRON325 M1 PO (10:13)
[2018-01-03] MEDS ORDERED: LIPITOR10 MG PO (10:14)
[2018-01-03] MEDS ORDERED: VITAMIN D22000 UNIT PO ×2 (10:15→10:16)
[2018-01-03] MEDS ORDERED: OYSTER SHELL 51 EACH PO (10:17)
[2018-01-03 12:00] VITALS: BP 122/60
[2018-01-03 16:00] VITALS: BP 128/66
[2018-01-03 20:00] VITALS: BP 95/39
[2018-01-04] VITALS: BP 93/27
[2018-01-04 00:05] VITALS: BP 78/52
[2018-01-04 07:01] LABS: BASO % 0.1 % (0.0-1.0); EOS % 0.1 % (1.0-4.0); HEMATOCRIT 29.7 % (37.0-47.0); HEMOGLOBIN 9.3 g/dl (12.0-16.0); LYMPH # 1.2 10*3/uL (1.3-4.4); LYMPH % 11.3 % (27.0-41.0); MEAN CORPUSCULAR HGB 25.7 pg (27.0-31.0); MEAN CORPUSCULAR HGB CONC 31.3 g/dl (33.0-37.0); MEAN PLATELET VOLUME 10.8 fl (9.6-12.3); MONO # 0.5 10*3/uL (0.1-1.0); MONO % 4.9 % (3.0-9.0); NEUT # 8.4 10*3/uL (2.3-7.9); NEUT % 83.1 % (47.0-73.0); PLATELET COUNT AUTOMATED 237 10*3/uL (130-400); RED BLOOD COUNT 3.62 10*6/uL (4.10-5.10); RED CELL DISTRI WIDTH 15.5 % (0-14.5); WHITE BLOOD COUNT 10.2 10*3/uL (4.8-10.8)
[2018-01-04 07:35] LABS: BUN 13 mg/dl (7-24); CHLORIDE 112 mmol/L (98-107); POTASSIUM 3.9 mmol/L (3.5-5.1); SODIUM 143 mmol/L (136-145)
[2018-01-04 07:36] LABS: CREATININE 0.66 mg/dL (0.55-1.02)
[2018-01-04 08:00] VITALS: BP 125/62
[2018-01-04] MEDS ORDERED: DOXYCYCLINE100 M3 PO (09:12)
== END 2018-01-04 10:37 | disposition home or self-care (01) | DRG 178 ==
LOC: ED 16:02 → EDHOLD 19:32 → 4E 19:32
PROVIDERS: Family Medicine; Internal Medicine; Physician Assistant
DX: J69.0 Pneumonitis due to inhalation of food and vomit (principal); E44.0 Moderate protein-calorie malnutrition; E87.8 Other disorders of electrolyte and fluid balance, not elsewhere classified; E66.01 Morbid (severe) obesity due to excess calories; R13.10 Dysphagia, unspecified; F33.9 Major depressive disorder, recurrent, unspecified; J38.00 Paralysis of vocal cords and larynx, unspecified; Z68.41 Body mass index [BMI] 40.0-44.9, adult; G62.9 Polyneuropathy, unspecified; D50.9 Iron deficiency anemia, unspecified; R07.1 Chest pain on breathing; R70.0 Elevated erythrocyte sedimentation rate; R79.82 Elevated C-reactive protein (CRP); E78.00 Pure hypercholesterolemia, unspecified; R62.50 Unspecified lack of expected normal physiological development in childhood; R91.1 Solitary pulmonary nodule; K27.9 Peptic ulcer, site unspecified, unspecified as acute or chronic, without hemorrhage or perforation; J45.909 Unspecified asthma, uncomplicated; F41.1 Generalized anxiety disorder; I10 Essential (primary) hypertension; E55.9 Vitamin D deficiency, unspecified; D72.810 Lymphocytopenia; I87.8 Other specified disorders of veins; B35.1 Tinea unguium; I87.2 Venous insufficiency (chronic) (peripheral); S22.31XD Fracture of one rib, right side, subsequent encounter for fracture with routine healing; Z88.0 Allergy status to penicillin; Z88.8 Allergy status to other drugs, medicaments and biological substances; Z79.899 Other long term (current) drug therapy; Z93.1 Gastrostomy status; Z98.51 Tubal ligation status; Z87.891 Personal history of nicotine dependence; Z82.49 Family history of ischemic heart disease and other diseases of the circulatory system; Z81.8 Family history of other mental and behavioral disorders; Z83.3 Family history of diabetes mellitus; Z80.8 Family history of malignant neoplasm of other organs or systems; Z86.73 Personal history of transient ischemic attack (TIA), and cerebral infarction without residual deficits; Z87.11 Personal history of peptic ulcer disease; Z87.01 Personal history of pneumonia (recurrent)

== ENCOUNTER 2018-01-11 11:11 | Emergency (ER) | payer OTHER ==
[~2018-01-11] VITALS: Wt 115.2 kg
[~2018-01-11 11:11] MED LIST changes: +ASMANEX220 MC1 INH; +DOXYCYCLINE100 M3 PO; +DUONEB 3 MG/3 ML3 M1 INH; +IRON325 M1 PO; +LIPITOR10 MG PO; +LYRICA150 M1 PO; +OMEPRAZOLE D/R20 MG PO; +OYSTER SHELL 51 EACH PO; +REXULTI3 MG PO; +TRINTELLIX20 MG PO; +VITAMIN D22000 UNIT PO
[2018-01-11 11:48] LABS: BASO # 0.1 10*3/uL (0.0-0.1); BASO % 0.4 % (0.0-1.0); EOS # 0.1 10*3/uL (0.0-0.4); EOS % 1.1 % (1.0-4.0); HEMATOCRIT 36.6 % (37.0-47.0); LYMPH # 0.9 10*3/uL (1.3-4.4); LYMPH % 7.1 % (27.0-41.0); MEAN CELL VOLUME 82.8 fl (81.0-99.0); MEAN CORPUSCULAR HGB 24.9 pg (27.0-31.0); MEAN CORPUSCULAR HGB CONC 30.1 g/dl (33.0-37.0); MEAN PLATELET VOLUME 10.8 fl (9.6-12.3); MONO # 0.4 10*3/uL (0.1-1.0); MONO % 3.5 % (3.0-9.0); NEUT # 10.9 10*3/uL (2.3-7.9); NEUT % 87.6 % (47.0-73.0); PLATELET COUNT AUTOMATED 239 10*3/uL (130-400); RED BLOOD COUNT 4.42 10*6/uL (4.10-5.10); RED CELL DISTRI WIDTH 15.4 % (0-14.5); WHITE BLOOD COUNT 12.5 10*3/uL (4.8-10.8)
[2018-01-11 12:04] LABS: ALBUMIN 3.5 gm/dl (3.1-4.5); ALKALINE PHOSPHATASE 87 U/L (45-117); BUN 21 mg/dl (7-24); CHLORIDE 106 mmol/L (98-107); POTASSIUM 4.3 mmol/L (3.5-5.1); SGOT/AST 23 IU/L (3-35); SGPT/ALT 27 U/L (12-78); SODIUM 137 mmol/L (136-145); TOTAL PROTEIN 7.4 gm/dL (6.4-8.2)
[2018-01-11] MEDS ORDERED: ZOFRAN ODT4 MG SL (13:05)
== END 2018-01-11 13:17 | disposition home or self-care (01) ==
LOC: ED 11:11
PROVIDERS: Physician Assistant
DX: K52.9 Noninfective gastroenteritis and colitis, unspecified (principal); M54.9 Dorsalgia, unspecified; Z88.0 Allergy status to penicillin; Z88.6 Allergy status to analgesic agent; Z79.899 Other long term (current) drug therapy; Z87.891 Personal history of nicotine dependence

== ENCOUNTER → 2018-01-20 | Outpatient (CLI) | payer OTHER | END | disposition home or self-care (01) | LOC: CT 01-19 11:00 | DX: R22.2 Localized swelling, mass and lump, trunk (principal) ==

== ENCOUNTER 2018-03-26 13:19 | Emergency (ER) | payer OTHER ==
[~2018-03-26] VITALS: Ht 170.1 cm; Wt 104.8 kg
[2018-03-26 13:55] LABS: HEMOGLOBIN 10.1 g/dl (12.0-16.0); PLATELET COUNT AUTOMATED 208 10*3/uL (130-400)
[2018-03-26 14:02] LABS: BASO # 0.1 10*3/uL (0.0-0.1); BASO % 0.9 % (0.0-1.0); EOS # 0.3 10*3/uL (0.0-0.4); EOS % 4.7 % (1.0-4.0); LYMPH # 1.1 10*3/uL (1.3-4.4); LYMPH % 19.6 % (27.0-41.0); MEAN CELL VOLUME 82.9 fl (81.0-99.0); MEAN CORPUSCULAR HGB 24.6 pg (27.0-31.0); MEAN CORPUSCULAR HGB CONC 29.7 g/dl (33.0-37.0); MEAN PLATELET VOLUME 10.8 fl (9.6-12.3); MONO # 0.4 10*3/uL (0.1-1.0); MONO % 7.6 % (3.0-9.0); NEUT # 3.9 10*3/uL (2.3-7.9); NEUT % 66.9 % (47.0-73.0); RED CELL DISTRI WIDTH 14.9 % (0-14.5); WHITE BLOOD COUNT 5.8 10*3/uL (4.8-10.8)
[2018-03-26 14:10] LABS: ALBUMIN 2.9 gm/dl (3.1-4.5); ALKALINE PHOSPHATASE 83 U/L (45-117); BUN 12 mg/dl (7-24); CHLORIDE 109 mmol/L (98-107); CREATININE 0.65 mg/dL (0.55-1.02); POTASSIUM 3.9 mmol/L (3.5-5.1); SGOT/AST 25 IU/L (3-35); SGPT/ALT 28 U/L (12-78); SODIUM 142 mmol/L (136-145); TOTAL PROTEIN 6.7 gm/dL (6.4-8.2)
[2018-03-26] MEDS ORDERED: ZYRTEC10 MG PO (15:11)
[2018-03-26] MEDS ORDERED: ROBITUSSIN DM 105 ML PO (15:11)
[2018-03-26] MEDS ORDERED: ZITHROMAX250 MG PO (15:11)
== END 2018-03-26 15:28 | disposition home or self-care (01) ==
LOC: ED 13:19
PROVIDERS: Nurse Practitioner Family
DX: J20.9 Acute bronchitis, unspecified (principal); R19.7 Diarrhea, unspecified; M54.6 Pain in thoracic spine; Z88.0 Allergy status to penicillin; Z88.6 Allergy status to analgesic agent; Z79.899 Other long term (current) drug therapy; Z87.891 Personal history of nicotine dependence

== ENCOUNTER 2018-04-10 14:17 | Emergency (ER) | payer OTHER ==
[~2018-04-10] VITALS: Ht 170.1 cm; Wt 121.1 kg
--- NOTE | ~2018-04-10 | EKG ---
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
[~2018-04-10 14:17] MED LIST changes: +ROBITUSSIN DM 105 ML PO
[2018-04-10 14:52] LABS: BASO # 0.1 10*3/uL (0.0-0.1); BASO % 0.7 % (0.0-1.0); EOS # 0.3 10*3/uL (0.0-0.4); EOS % 3.2 % (1.0-4.0); HEMATOCRIT 31.8 % (37.0-47.0); HEMOGLOBIN 9.9 g/dl (12.0-16.0); LYMPH # 1.1 10*3/uL (1.3-4.4); LYMPH % 13.4 % (27.0-41.0); MEAN CELL VOLUME 78.9 fl (81.0-99.0); MEAN CORPUSCULAR HGB 24.6 pg (27.0-31.0); MEAN CORPUSCULAR HGB CONC 31.1 g/dl (33.0-37.0); MEAN PLATELET VOLUME 10.8 fl (9.6-12.3); MONO # 0.5 10*3/uL (0.1-1.0); MONO % 6.2 % (3.0-9.0); NEUT # 6.4 10*3/uL (2.3-7.9); NEUT % 76.1 % (47.0-73.0); PLATELET COUNT AUTOMATED 248 10*3/uL (130-400); RED BLOOD COUNT 4.03 10*6/uL (4.10-5.10); RED CELL DISTRI WIDTH 14.6 % (0-14.5); WHITE BLOOD COUNT 8.4 10*3/uL (4.8-10.8)
[2018-04-10 15:09] LABS: ALBUMIN 3.1 gm/dl (3.1-4.5); ALKALINE PHOSPHATASE 79 U/L (45-117); BUN 14 mg/dl (7-24); CHLORIDE 106 mmol/L (98-107); CREATININE 0.79 mg/dL (0.55-1.02); POTASSIUM 3.9 mmol/L (3.5-5.1); SGOT/AST 21 IU/L (3-35); SGPT/ALT 21 U/L (12-78); SODIUM 139 mmol/L (136-145); TOTAL PROTEIN 6.7 gm/dL (6.4-8.2)
[2018-04-10 15:11] LABS: TROPONIN I < 0.015 ng/ml (<0.045)
== END 2018-04-10 16:26 | disposition home or self-care (01) ==
LOC: ED
PROVIDERS: Physician Assistant
DX: S60.221A Contusion of right hand, initial encounter (principal); S80.02XA Contusion of left knee, initial encounter; S00.83XA Contusion of other part of head, initial encounter; S60.222A Contusion of left hand, initial encounter; M54.2 Cervicalgia; M25.511 Pain in right shoulder; M25.512 Pain in left shoulder; Z88.0 Allergy status to penicillin; Z88.6 Allergy status to analgesic agent; Z93.1 Gastrostomy status; Z79.899 Other long term (current) drug therapy; Z87.891 Personal history of nicotine dependence; W01.198A Fall on same level from slipping, tripping and stumbling with subsequent striking against other object, initial encounter; Y93.89 Activity, other specified; Y92.89 Other specified places as the place of occurrence of the external cause; Y99.8 Other external cause status

== ENCOUNTER 2018-04-16 10:27 | Emergency (ER) | payer OTHER ==
[~2018-04-16] VITALS: Ht 170.1 cm; Wt 121.1 kg
== END 2018-04-16 12:47 | disposition home or self-care (01) ==
LOC: ED 10:27
DX: S50.01XA Contusion of right elbow, initial encounter (principal); B34.9 Viral infection, unspecified; J45.909 Unspecified asthma, uncomplicated; Z88.0 Allergy status to penicillin; Z88.6 Allergy status to analgesic agent; Z79.899 Other long term (current) drug therapy; Z87.891 Personal history of nicotine dependence; W18.39XA Other fall on same level, initial encounter; Y93.89 Activity, other specified; Y92.89 Other specified places as the place of occurrence of the external cause; Y99.8 Other external cause status

== ENCOUNTER 2018-06-07 16:52 | Emergency (ER) | payer OTHER ==
[~2018-06-07] VITALS: Ht 170.1 cm; Wt 118.8 kg
[2018-06-07 17:50] LABS: BASO # 0.1 10*3/uL (0.0-0.1); BASO % 0.7 % (0.0-1.0); EOS # 0.2 10*3/uL (0.0-0.4); EOS % 2.3 % (1.0-4.0); HEMATOCRIT 36.9 % (37.0-47.0); HEMOGLOBIN 11.2 g/dl (12.0-16.0); LYMPH # 1.3 10*3/uL (1.3-4.4); LYMPH % 16.6 % (27.0-41.0); MEAN CELL VOLUME 79.9 fl (81.0-99.0); MEAN CORPUSCULAR HGB 24.2 pg (27.0-31.0); MEAN CORPUSCULAR HGB CONC 30.4 g/dl (33.0-37.0); MEAN PLATELET VOLUME 10.6 fl (9.6-12.3); MONO # 0.4 10*3/uL (0.1-1.0); MONO % 5.3 % (3.0-9.0); NEUT # 5.6 10*3/uL (2.3-7.9); NEUT % 74.8 % (47.0-73.0); PLATELET COUNT AUTOMATED 222 10*3/uL (130-400); RED BLOOD COUNT 4.62 10*6/uL (4.10-5.10); RED CELL DISTRI WIDTH 15.5 % (0-14.5); WHITE BLOOD COUNT 7.5 10*3/uL (4.8-10.8)
[2018-06-07 18:00] LABS: BILIRUBIN NEGATIVE (NEGATIVE); BLOOD NEGATIVE (NEGATIVE); CLARITY CLEAR (CLEAR); COLOR YELLOW (YELLOW); GLUCOSE NEGATIVE (NEGATIVE); KETONE NEGATIVE (NEGATIVE); LEUKO ESTERASE NEGATIVE (NEGATIVE); NITRITE NEGATIVE (NEGATIVE); PH 6.5 (5.0-9.0); SPECIFIC GRAVITY <= 1.005 (1.005-1.030); UROBILINOGEN 0.2 E.U./dl (0.2-1.0)
[2018-06-07 18:03] LABS: ALKALINE PHOSPHATASE 66 U/L (45-117); BUN 12 mg/dl (7-24); CHLORIDE 105 mmol/L (98-107); CREATININE 0.66 mg/dL (0.55-1.02); POTASSIUM 3.8 mmol/L (3.5-5.1); SGOT/AST 14 IU/L (3-35); SGPT/ALT 20 U/L (12-78); SODIUM 140 mmol/L (136-145); TOTAL PROTEIN 7.1 gm/dL (6.4-8.2)
[2018-06-07 18:27] LABS: BACTERIA TRACE
[2018-06-07] MEDS ORDERED: TESSALON PERLE100 MG PO (19:28)
[2018-06-07] MEDS ORDERED: Zofran4 MG SL (19:28)
== END 2018-06-07 19:32 | disposition home or self-care (01) ==
LOC: ED 16:52
PROVIDERS: Nurse Practitioner Family
DX: B34.9 Viral infection, unspecified (principal); I10 Essential (primary) hypertension; G62.9 Polyneuropathy, unspecified; Z86.73 Personal history of transient ischemic attack (TIA), and cerebral infarction without residual deficits; Z88.0 Allergy status to penicillin; Z88.8 Allergy status to other drugs, medicaments and biological substances; Z79.2 Long term (current) use of antibiotics; Z79.899 Other long term (current) drug therapy; Z87.891 Personal history of nicotine dependence; Z93.1 Gastrostomy status

== ENCOUNTER 2018-07-05 12:59 | Inpatient (IN) | payer OTHER ==
[~2018-07-05] VITALS: Ht 170.2 cm; Wt 102.2 kg
--- NOTE | ~2018-07-05 | EKG ---
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
[~2018-07-05 12:59] MED LIST changes: +TESSALON PERLE100 MG PO; +Zofran4 MG SL
[2018-07-05 13:01] VITALS: BP 105/55
[2018-07-05 14:06] LABS: BASO % 0.6 % (0.0-1.0); EOS # 0.1 10*3/uL (0.0-0.4); EOS % 2.1 % (1.0-4.0); HEMATOCRIT 37.1 % (37.0-47.0); HEMOGLOBIN 11.5 g/dl (12.0-16.0); LYMPH % 21.2 % (27.0-41.0); MEAN CELL VOLUME 78.6 fl (81.0-99.0); MEAN CORPUSCULAR HGB 24.4 pg (27.0-31.0); MEAN PLATELET VOLUME 11.8 fl (9.6-12.3); MONO # 0.5 10*3/uL (0.1-1.0); MONO % 9.3 % (3.0-9.0); NEUT # 3.2 10*3/uL (2.3-7.9); NEUT % 66.6 % (47.0-73.0); PLATELET COUNT AUTOMATED 232 10*3/uL (130-400); RED BLOOD COUNT 4.72 10*6/uL (4.10-5.10); RED CELL DISTRI WIDTH 16.1 % (0-14.5); WHITE BLOOD COUNT 4.8 10*3/uL (4.8-10.8)
--- NOTE | 2018-07-05 14:08 | NUR ---
PT W/O ACUTE DISTRESS NOTED AWAITING ALL RESULTS FOR ADDITIONAL PLAN OF CARE,A POPSICLE PROVIDED,SAFETY PRECAUTIONS INTACT AND CALL LIGHT WITHIN REACH.
[2018-07-05 14:23] LABS: ALBUMIN 2.9 gm/dl (3.1-4.5); ALKALINE PHOSPHATASE 68 U/L (45-117); BUN 13 mg/dl (7-24); CHLORIDE 105 mmol/L (98-107); POTASSIUM 3.1 mmol/L (3.5-5.1); SGOT/AST 17 IU/L (3-35); SGPT/ALT 18 U/L (12-78); SODIUM 140 mmol/L (136-145); TOTAL PROTEIN 6.9 gm/dL (6.4-8.2)
[2018-07-05 14:24] LABS: B-hCG (QUALITATIVE) NEGATIVE (NEGATIVE)
[2018-07-05 14:32] LABS: TROPONIN I < 0.015 ng/ml (<0.045)
--- NOTE | 2018-07-05 15:10 | NUR ---
NO NAUSEA, VOMITING NOTED DURING ED VISIT THUS FAR.
[2018-07-05 15:15] LABS: BILIRUBIN NEGATIVE (NEGATIVE); BLOOD NEGATIVE (NEGATIVE); CLARITY CLEAR (CLEAR); COLOR YELLOW (YELLOW); GLUCOSE NEGATIVE (NEGATIVE); KETONE NEGATIVE (NEGATIVE); LEUKO ESTERASE TRACE (NEGATIVE); NITRITE NEGATIVE (NEGATIVE); PH 6.5 (5.0-9.0); SPECIFIC GRAVITY <= 1.005 (1.005-1.030); UROBILINOGEN 0.2 E.U./dl (0.2-1.0)
[2018-07-05 15:45] VITALS: BP 118/62
--- NOTE | 2018-07-05 17:38 | NUR ---
PT W/O ADDITIONAL COMPLAINTS VOICED AND REQUESTING "FOOD TO EAT",DISCUSSED WITH PT THAT THE PHYSICIAN WILL DETERMINE HER DIET D/T HER SYMPTOMS,ACKNOWLEDGEMENT GIVEN.
[2018-07-05 18:00] VITALS: BP 138/47
--- NOTE | 2018-07-05 18:20 | NUR ---
A 48, admitted to 5E, under the services of ANGEL Hallman DO with a diagnosis of ENTERITIS Chief complaint is N/V. Patient arrived via stretcher from ER. Monitor applied. Initial assessment completed. Vital signs taken and recorded. CARLYN HALLMAN DO notified of admission to the unit. Orders received. See assessment for past medical history, medications and allergies. Patient and/or family oriented to unit. visitation policy reviewed. Clothing/patient valuable form completed. ZOFIA DURAN
[2018-07-05] MEDS ORDERED: QVAR REDIHALE10.6 G1 INH (19:00)
[2018-07-05] MEDS ORDERED: LISINOPRIL5 MG PO (19:02)
[2018-07-05] MEDS ORDERED: VRAYLAR6 MG PO (19:04)
[2018-07-05] MEDS ORDERED: PROVENTIL HFA6.7 GM INH (19:06)
[2018-07-05] MEDS ORDERED: VITAMIN C500 M4 PO (19:08)
--- NOTE | 2018-07-05 19:14 | NUR ---
MED REC UPDATED/CORRECTED USING INFORMATION PROVIDED BY THE PATIENT RE: VITAMIN C AND IRON PILL, AND THE REMAINDER OF INFORMATION FROM [facility], SEE FAXED MEDS LIST ON CHART.
[2018-07-05 20:00] VITALS: BP 100/62
--- NOTE | 2018-07-05 23:20 | NUR ---
PT RESTING IN BED AT THIS TIME. IV FLUIDS INFUSING WITH EASE INTO IV SITE, SITE PATENT. NO COMPLAINTS VOICED. PT STATES THAT SHE FEELS MUCH BETTER AT THIS TIME. NO C/O N/V/D. ASSESSMENT COMPLETE, REVEALING NO NEW ABNORMALITIES. RESPIRATIONS EASY AND UNLABORED ON ROOM AIR AT THIS TIME. WILL CONTINUE TO MONITOR THROUGHOUT SHIFT. CALL LIGHT IN REACH.
--- NOTE | 2018-07-06 00:21 | NUR ---
PT GIVEN SCHEDULED ZOFRAN VIA IV AT THIS TIME. NO S/S OF DISTRESS NOTED. RESPIRATIONS EASY AND UNLABORED AT THIS TIME. ALL SAFETY MEASURES IN PLACE. CALL LIGHT IN REACH.
[2018-07-06 05:56] LABS: BASO % 0.7 % (0.0-1.0); EOS # 0.1 10*3/uL (0.0-0.4); HEMATOCRIT 32.9 % (37.0-47.0); HEMOGLOBIN 10.1 g/dl (12.0-16.0); LYMPH # 1.1 10*3/uL (1.3-4.4); LYMPH % 24.3 % (27.0-41.0); MEAN CORPUSCULAR HGB 24.6 pg (27.0-31.0); MEAN CORPUSCULAR HGB CONC 30.7 g/dl (33.0-37.0); MEAN PLATELET VOLUME 10.8 fl (9.6-12.3); MONO # 0.3 10*3/uL (0.1-1.0); MONO % 7.3 % (3.0-9.0); NEUT % 65.5 % (47.0-73.0); PLATELET COUNT AUTOMATED 174 10*3/uL (130-400); RED BLOOD COUNT 4.11 10*6/uL (4.10-5.10); RED CELL DISTRI WIDTH 16.1 % (0-14.5); WHITE BLOOD COUNT 4.5 10*3/uL (4.8-10.8)
[2018-07-06 06:15] LABS: ACT PARTIAL THROMBO TIME 25.3 SECONDS (20.8-31.5)
[2018-07-06 06:18] LABS: ALBUMIN 2.4 gm/dl (3.1-4.5); ALKALINE PHOSPHATASE 57 U/L (45-117); BUN 10 mg/dl (7-24); CHLORIDE 108 mmol/L (98-107); CHOLESTEROL 123 mg/dL (<200); CREATININE 0.65 mg/dL (0.55-1.02); HDL CHOLESTEROL 21 mg/dl (40-60); LDL CHOLESTEROL 79 mg/dL (9-159); PHOSPHOROUS 3.3 mg/dL (2.5-4.9); POTASSIUM 3.8 mmol/L (3.5-5.1); SGOT/AST 16 IU/L (3-35); SGPT/ALT 15 U/L (12-78); SODIUM 141 mmol/L (136-145); TOTAL PROTEIN 5.8 gm/dL (6.4-8.2); TRIGLYCERIDES 113 mg/dl (<150); VLDL CHOLESTEROL 23 mg/dL (6-40)
[2018-07-06] MEDS ORDERED: CIPRO500 MG PO (08:04)
[2018-07-06] MEDS ORDERED: FLAGYL500 MG PO (08:04)
[2018-07-06 08:56] LABS: VITAMIN D, 25-HYDROXY 14.6 ng/mL (30-100)
--- NOTE | 2018-07-06 10:29 | NUR ---
Branch Specialist in to talk to patient. Patient states lives at HOME with FAMILY. There are FEW steps in the home. Physician: Luis Miguel CANDELARIO Pharmacy: [facility] Home health services: NONE Patient's level of ADLs: INDEPENDENT Patient has working utilities: YES DME: WALKER AT TIMES Follow-up physician's appointment after d/c: WILL BE MADE BY HOSPITALIST NURSE DIRECTOR ON DISCHARGE Does patient want to access PORTAL?: NO Discharge plan PT STATES SHE LIVES WITH [employer]. STATES SHE IS INDEPENDENT IN CARE AND HAS NO NEEDS AT HOME WHEN DISCHARGED EXCEPT A RIDE HOME. WILL ARRANGE CAB RIDE HOME ON DISCHARGE. WILL CONTINUE TO FOLLOW. . TRICIA YATES
--- NOTE | 2018-07-06 11:50 | NUR ---
Discharge instructions reviewed with patient/family. Patient receptive and verbalizes understanding. Follow-up care arranged. Written instructions given to patient/family. CATHRYN SCALES
== END 2018-07-06 11:50 | disposition home or self-care (01) | DRG 391 ==
LOC: ED 12:59 → 5E 17:15 → EDHOLD 17:15 → 5E 17:29
PROVIDERS: Internal Medicine; ADMIT Emergency Medicine
DX: A08.4 Viral intestinal infection, unspecified (principal); E43 Unspecified severe protein-calorie malnutrition; R13.10 Dysphagia, unspecified; R91.1 Solitary pulmonary nodule; E66.01 Morbid (severe) obesity due to excess calories; I87.2 Venous insufficiency (chronic) (peripheral); H54.8 Legal blindness, as defined in USA; I10 Essential (primary) hypertension; F41.1 Generalized anxiety disorder; E78.00 Pure hypercholesterolemia, unspecified; F32.9 Major depressive disorder, single episode, unspecified; G62.9 Polyneuropathy, unspecified; F17.210 Nicotine dependence, cigarettes, uncomplicated; E87.6 Hypokalemia; D72.810 Lymphocytopenia; R73.9 Hyperglycemia, unspecified; J45.909 Unspecified asthma, uncomplicated; K27.9 Peptic ulcer, site unspecified, unspecified as acute or chronic, without hemorrhage or perforation; Z86.73 Personal history of transient ischemic attack (TIA), and cerebral infarction without residual deficits; Z87.11 Personal history of peptic ulcer disease; Z93.1 Gastrostomy status; Z82.49 Family history of ischemic heart disease and other diseases of the circulatory system; Z81.8 Family history of other mental and behavioral disorders; Z88.0 Allergy status to penicillin; Z88.8 Allergy status to other drugs, medicaments and biological substances; Z79.899 Other long term (current) drug therapy; Z68.35 Body mass index [BMI] 35.0-35.9, adult

== ENCOUNTER → 2018-08-31 | Day surgery (SDC) | payer OTHER ==
[~2018-08-31] VITALS: Ht 170.1 cm; Wt 120.7 kg
[~2018-08-31] MED LIST changes: +FLAGYL500 MG PO; +IBU800 MG PO; +LISINOPRIL5 MG PO; +PREDNISONE50 MG PO; +QVAR REDIHALE10.6 G1 INH; +ROBITUSSIN DM 101 OZ PO; +VITAMIN C500 M4 PO; +VRAYLAR6 MG PO
--- NOTE | ~2018-08-31 | PROC NOTE ---
[place], [place] PROCEDURE NOTE NAME: DINA GARDNER UNIT #: [id number] ROOM: DOCTOR: GARCIA MILLER MD BIRTHDATE: [birth year] DOS: 08/31/2018 PREOPERATIVE DIAGNOSES: History of gastroesophageal reflux disease, chronic diarrhea. POSTOPERATIVE DIAGNOSIS: Mild esophagitis, normal colon. PROCEDURE: EGD with colonoscopy. ENDOSCOPIST: Garcia Miller MD ELECTROENCEPHALOGRAPH TECHNOLOGIST: REHAN. ANESTHESIA: MAC. INDICATIONS: This is a 48-year-old lady who is here for an EGD and colonoscopy for history of GERD and chronic diarrhea. The procedure and its complications were explained to the patient in detail preoperatively. Complications that were discussed included but were not limited to, bleeding, colon perforation, stomach perforation, and missed lesions. She agreed to proceed. DESCRIPTION OF PROCEDURE: After identifying the patient, the patient was brought to the endoscopy suite and placed in the left lateral position. After time-out procedure was called, a bite block was placed. An adult gastroscope was inserted through the mouth into the pharynx, esophagus, stomach and the first 2 parts of the duodenum. There was found to be mild esophagitis, otherwise the duodenum and the stomach that was visualized were within normal limits. The scope was retroflexed in the stomach and the entirety of the stomach mucosa was visualized. At this point, the scope was then withdrawn and mild esophagitis was confirmed again. At this point, attention was turned towards the colonoscopy. A digital rectal exam was performed, which was within normal limits. An adult colonoscope was now introduced into the anal canal and advanced sequentially into the rectum, sigmoid colon, descending colon, transverse colon and ascending colon up to the cecum. Upon reaching the cecum, the scope was withdrawn. Total withdrawal time was approximately 6 minutes and 30 seconds. The entirety of the colon was visualized and this was within normal limits. After the scope was withdrawn, the patient was brought back to the recovery room in stable fashion. Based on these findings, the patient is recommended to have another colonoscopy in 10 years or sooner if she developed any new symptoms. These findings were discussed with the patient's boyfriend in the recovery room. [place], [place] PROCEDURE NOTE NAME: DINA GARDNER UNIT #: [id number] ROOM: DOCTOR: GARCIA MILLER MD BIRTHDATE: [birth year] Garcia Miller MD CM:PROCNOTE:PROCEDURE NOTE [id number] GARCIA MILLER MD
[2018-08-31 09:07] VITALS: BP 124/77
[2018-08-31 10:05] VITALS: BP 88/47
[2018-08-31 10:20] VITALS: BP 98/45
[2018-08-31 10:35] VITALS: BP 117/69
== END | disposition home or self-care (01) ==
LOC: SDC 08-29 09:30
DX: K21.0 Gastro-esophageal reflux disease with esophagitis (principal); E78.5 Hyperlipidemia, unspecified; J45.909 Unspecified asthma, uncomplicated; F41.9 Anxiety disorder, unspecified; I10 Essential (primary) hypertension; F32.9 Major depressive disorder, single episode, unspecified; E66.9 Obesity, unspecified; Z68.41 Body mass index [BMI] 40.0-44.9, adult; Z79.2 Long term (current) use of antibiotics; Z79.899 Other long term (current) drug therapy; Z79.1 Long term (current) use of non-steroidal anti-inflammatories (NSAID); Z86.73 Personal history of transient ischemic attack (TIA), and cerebral infarction without residual deficits; R62.50 Unspecified lack of expected normal physiological development in childhood; Z87.891 Personal history of nicotine dependence; Z88.0 Allergy status to penicillin; Z88.8 Allergy status to other drugs, medicaments and biological substances; Z91.030 Bee allergy status; Z98.890 Other specified postprocedural states; Z82.49 Family history of ischemic heart disease and other diseases of the circulatory system; Z83.3 Family history of diabetes mellitus
CPT/HCPCS: 00813; 43235; G0121

== ENCOUNTER 2018-12-16 09:51 | Emergency (ER) | payer OTHER ==
[~2018-12-16] VITALS: Ht 170.1 cm; Wt 108.0 kg
[~2018-12-16 09:51] MED LIST changes: -IBU800 MG PO; -PREDNISONE50 MG PO; -ROBITUSSIN DM 101 OZ PO
[2018-12-16] MEDS ORDERED: IBU800 MG PO (12:32)
== END 2018-12-16 12:53 | disposition home or self-care (01) ==
LOC: ED 09:51
DX: S80.01XA Contusion of right knee, initial encounter (principal); M79.661 Pain in right lower leg; M54.5 Low back pain; G89.29 Other chronic pain; I10 Essential (primary) hypertension; Z86.73 Personal history of transient ischemic attack (TIA), and cerebral infarction without residual deficits; G62.9 Polyneuropathy, unspecified; Z87.891 Personal history of nicotine dependence; Z79.899 Other long term (current) drug therapy; Z88.0 Allergy status to penicillin; Z88.6 Allergy status to analgesic agent; W10.8XXA Fall (on) (from) other stairs and steps, initial encounter; Y93.89 Activity, other specified; Y92.89 Other specified places as the place of occurrence of the external cause; Y99.8 Other external cause status

== ENCOUNTER 2018-12-28 11:03 | Emergency (ER) | payer OTHER ==
[~2018-12-28] VITALS: Wt 122.0 kg
[~2018-12-28 11:03] MED LIST changes: +IBU800 MG PO
[2018-12-28 12:25] LABS: ALBUMIN 3.1 gm/dl (3.1-4.5); ALKALINE PHOSPHATASE 73 U/L (45-117); BUN 17 mg/dl (7-24); CHLORIDE 110 mmol/L (98-107); CREATININE 0.66 mg/dL (0.55-1.02); POTASSIUM 3.8 mmol/L (3.5-5.1); SGOT/AST 21 IU/L (3-35); SGPT/ALT 21 U/L (12-78); SODIUM 138 mmol/L (136-145)
[2018-12-28 12:40] LABS: BASO % 0.7 % (0.0-1.0); EOS # 0.1 10*3/uL (0.0-0.4); EOS % 2.3 % (1.0-4.0); HEMATOCRIT 36.7 % (37.0-47.0); HEMOGLOBIN 11.1 g/dl (12.0-16.0); LYMPH # 0.8 10*3/uL (1.3-4.4); LYMPH % 14.3 % (27.0-41.0); MEAN CELL VOLUME 81.9 fl (81.0-99.0); MEAN CORPUSCULAR HGB 24.8 pg (27.0-31.0); MEAN CORPUSCULAR HGB CONC 30.2 g/dl (33.0-37.0); MEAN PLATELET VOLUME 11.5 fl (9.6-12.3); MONO # 0.6 10*3/uL (0.1-1.0); MONO % 10.6 % (3.0-9.0); NEUT # 4.1 10*3/uL (2.3-7.9); NEUT % 71.8 % (47.0-73.0); PLATELET COUNT AUTOMATED 195 10*3/uL (130-400); RED BLOOD COUNT 4.48 10*6/uL (4.10-5.10); RED CELL DISTRI WIDTH 15.2 % (0-14.5); WHITE BLOOD COUNT 5.7 10*3/uL (4.8-10.8)
[2018-12-28] MEDS ORDERED: ROBITUSSIN DM 101 OZ PO (14:02)
[2018-12-28] MEDS ORDERED: CLARITIN10 MG PO (14:02)
[2018-12-28] MEDS ORDERED: PREDNISONE50 MG PO (14:02)
[2018-12-28] MEDS ORDERED: PROVENTIL HFA6.7 GM INH (14:02)
[2018-12-28] MEDS ORDERED: FLONASE ALLERG9.9 ML NAS (14:03)
== END 2018-12-28 14:16 | disposition home or self-care (01) ==
LOC: ED 11:03
PROVIDERS: Nurse Practitioner Family
DX: J20.9 Acute bronchitis, unspecified (principal); J06.9 Acute upper respiratory infection, unspecified; R00.0 Tachycardia, unspecified; I10 Essential (primary) hypertension; F41.9 Anxiety disorder, unspecified; F32.9 Major depressive disorder, single episode, unspecified; Z86.73 Personal history of transient ischemic attack (TIA), and cerebral infarction without residual deficits; Z87.891 Personal history of nicotine dependence; Z98.51 Tubal ligation status; Z98.890 Other specified postprocedural states; Z88.6 Allergy status to analgesic agent; Z88.0 Allergy status to penicillin; Z87.01 Personal history of pneumonia (recurrent)

== ENCOUNTER 2019-01-30 16:05 | Emergency (ER) | payer OTHER ==
[~2019-01-30] VITALS: Ht 170.1 cm; Wt 121.6 kg
[~2019-01-30 16:05] MED LIST changes: +PREDNISONE50 MG PO; +ROBITUSSIN DM 101 OZ PO
== END 2019-01-30 19:17 | disposition home or self-care (01) ==
LOC: ED 16:05
DX: S40.012A Contusion of left shoulder, initial encounter (principal); S09.90XA Unspecified injury of head, initial encounter; M54.2 Cervicalgia; G62.9 Polyneuropathy, unspecified; Z87.891 Personal history of nicotine dependence; Z79.899 Other long term (current) drug therapy; Z88.0 Allergy status to penicillin; Z88.8 Allergy status to other drugs, medicaments and biological substances; Z91.81 History of falling; W10.8XXA Fall (on) (from) other stairs and steps, initial encounter; Y93.89 Activity, other specified; Y92.89 Other specified places as the place of occurrence of the external cause; Y99.8 Other external cause status

== ENCOUNTER 2019-03-20 15:04 | Inpatient (IN) | payer OTHER ==
[~2019-03-20] VITALS: Ht 177.8 cm; Wt 114.9 kg
--- NOTE | ~2019-03-20 | PR ---
[place], [place] PROGRESS NOTE NAME: [facility]INA [facility]ARDNER [id number] UNIT #: [id number] ROOM: 415 DOCTOR: CITLALY COY MD BIRTHDATE: [birth year] DOS: 03/22/[address] Galan. SUBJECTIVE: This patient was admitted a couple of days ago with swelling of the legs and very little shortness of breath. She has chronic shortness of breath, but she is morbidly obese. No cough, fever or chills. She has had no palpitations. Appetite is fine. She had no breathing difficulty throughout the night. PHYSICAL EXAMINATION: GENERAL: The patient is moderately obese. VITAL SIGNS: Normal temperature, pulse is 88 and regular, blood pressure 128/72. NECK: JVP is normal. AJR is negative. EXTREMITIES: She has very large legs, but there is absolutely no pitting edema at all. RESPIRATORY: She has occasional bibasilar crackle. Breath sounds are fairly decent. DIAGNOSTIC DATA: I reviewed the chest x-ray, which I think is underpenetrated and another PA and lateral chest x-ray should be repeated. Fluid balance was -500 mL. IMPRESSION: My clinical assessment does not display any evidence of cardiac decompensation. A PA and lateral chest x-ray should be done today to assess the pulmonary vasculature. CITLALY COY MD CM:PNTRANS [id number] CITLALY COY MD 03/22/19 0834 interface
--- NOTE | ~2019-03-20 | CON ---
[place], [place] REPORT OF CONSULTATION NAME: DINA GARDNER UNIT #: [id number] ROOM: 415 DOCTOR: ZACHARY BOLANOS MD BIRTHDATE: [birth year] DOS: 03/21/2019 REASON FOR CONSULTATION: HISTORY OF PRESENT ILLNESS: The patient is a 48-year-old gentleman known to me with a known history of hypertension, admitted with significant leg edema. The patient's home health nurse was seen her today and I noticed in advised her to come to the hospital. No other complaints. No shortness of breath. The patient has chronic neuropathy. Hemodynamically appears to be stable. No acute EKG changes, suggestion of myocardial injury or infarction. PAST MEDICAL HISTORY: Significant for CVA, dysphagia, hypertension, hyperlipidemia, lymphopenia and viral gastroenteritis. SURGICAL HISTORY: History of endoscopy, gastrostomy. SOCIAL HISTORY: Does not use any drugs. Quit smoking in the past. Denies any alcohol abuse. ALLERGIES: PENICILLIN AND IBUPROFEN. HOME MEDICATIONS: Atorvastatin, ibuprofen, lisinopril, prednisone, verapamil 120 daily. REVIEW OF SYSTEMS: CONSTITUTIONAL: No fever, no chills. HEENT: No visual disturbance or hearing problems. CARDIOVASCULAR: As per HPI. GASTROINTESTINAL: No nausea, no vomiting. GENITOURINARY: No dysuria. NEUROLOGIC: Stable. PHYSICAL EXAMINATION: VITAL SIGNS: Blood pressure is 130/70, heart rate is 94, sinus tachycardia. I's and O's positive 250 mL. HEENT: No JVD. LUNGS: Diminished breath sounds. HEART: Sounds are regular. ABDOMEN: Soft, nontender. EXTREMITIES: About 1-2+ edema. NEUROLOGIC: Stable. LABORATORY DATA: Sodium 136, potassium 3.9, creatinine is 0.5, hemoglobin 11.3, hematocrit 36. Chest x-ray showed development of a brvu-we-oorezock congestive heart failure. IMPRESSION: New onset congestive heart failure, peripheral edema, lymphopenia. RECOMMENDATIONS: Agree with present management. Agree with IV diuretics. We will get an echocardiogram to assess the ejection fraction. ISAÍAS inhibitor [place], [place] REPORT OF CONSULTATION NAME: DINA GARDNER UNIT #: [id number] ROOM: 415 DOCTOR: ZACHARY BOLANOS MD BIRTHDATE: [birth year] should be continued. Verapamil probably is also contributing the peripheral edema and I will closely follow up. ZACHARY BOLANOS MD CM:CONSTR:REPORT OF CONSULTATION 04/04/19 0844 interface
--- NOTE | ~2019-03-20 | PR ---
[place], [place] PROGRESS NOTE NAME: DINA GARDNER UNIT #: [id number] ROOM: 415 DOCTOR: CITLALY COY MD BIRTHDATE: [birth year] DOS: 03/23/[address] Galan. SUBJECTIVE: This patient was admitted with some swelling in the legs and chronic shortness of breath. She walked in the hallways and still is mildly short of breath, but nothing extraordinary. She has not had any palpitation, chest pain, breathing difficulty. She had no breathing difficulty at night. PHYSICAL EXAMINATION: GENERAL: Reveals a patient who is moderately obese, alert, oriented, comfortable. Complexion is fine. She is not cyanotic nor is she tachypneic. She is not on oxygen. VITAL SIGNS: Pulse is 96 regular, blood pressure 122/84. NECK: Normal JVP. AJR is negative. EXTREMITIES: She has large legs, but no pitting edema. LUNGS: Breath sounds are fairly decent bilaterally. LABORATORY DATA: She had a CT scan of the chest yesterday and it did not demonstrate any pleural effusion or interstitial disease. IMPRESSION: This patient does not have any evidence of heart failure. From cardiac standpoint, she can be discharged home. CITLALY COY MD CM:PNTRANS 0718 CITLALY COY MD 03/23/19 0716 interface
--- NOTE | ~2019-03-20 | EKG ---
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
[2019-03-20 15:09] VITALS: BP 112/64
[2019-03-20 15:53] LABS: BASO % 0.4 % (0.0-1.0); EOS # 0.1 10*3/uL (0.0-0.4); EOS % 0.9 % (1.0-4.0); HEMOGLOBIN 11.3 g/dl (12.0-16.0); LYMPH # 1.2 10*3/uL (1.3-4.4); LYMPH % 13.3 % (27.0-41.0); MEAN CELL VOLUME 83.3 fl (81.0-99.0); MEAN CORPUSCULAR HGB 26.2 pg (27.0-31.0); MEAN CORPUSCULAR HGB CONC 31.4 g/dl (33.0-37.0); MEAN PLATELET VOLUME 10.9 fl (9.6-12.3); MONO # 0.5 10*3/uL (0.1-1.0); MONO % 5.9 % (3.0-9.0); NEUT # 7.3 10*3/uL (2.3-7.9); NEUT % 79.1 % (47.0-73.0); PLATELET COUNT AUTOMATED 234 10*3/uL (130-400); RED BLOOD COUNT 4.32 10*6/uL (4.10-5.10); RED CELL DISTRI WIDTH 16.4 % (0-14.5); WHITE BLOOD COUNT 9.2 10*3/uL (4.8-10.8)
[2019-03-20 16:16] LABS: BILIRUBIN NEGATIVE (NEGATIVE); BLOOD NEGATIVE (NEGATIVE); CLARITY SL CLOUDY (CLEAR); COLOR YELLOW (YELLOW); GLUCOSE NEGATIVE (NEGATIVE); KETONE NEGATIVE (NEGATIVE); LEUKO ESTERASE NEGATIVE (NEGATIVE); NITRITE NEGATIVE (NEGATIVE); PH 6.5 (5.0-9.0); UROBILINOGEN 0.2 E.U./dl (0.2-1.0)
[2019-03-20 16:25] LABS: ALKALINE PHOSPHATASE 83 U/L (45-117); BUN 13 mg/dl (7-24); CHLORIDE 106 mmol/L (98-107); CREATININE 0.54 mg/dL (0.55-1.02); POTASSIUM 3.9 mmol/L (3.5-5.1); SGOT/AST 12 IU/L (3-35); SGPT/ALT 20 U/L (12-78); SODIUM 136 mmol/L (136-145); TOTAL PROTEIN 6.9 gm/dL (6.4-8.2)
[2019-03-20 16:27] LABS: BACTERIA TRACE; WBC 0-2 wbc/hpf (0-5)
[2019-03-20 17:07] VITALS: BP 118/62
[2019-03-20 17:55] LABS: TROPONIN I < 0.015 ng/ml (<0.045)
[2019-03-20 18:05] VITALS: BP 114/75
[2019-03-20] MEDS ORDERED: CETIRIZINE10 MG PO (18:44)
[2019-03-20] MEDS ORDERED: Oscal,Oyster S500 MG PO (18:45)
[2019-03-20] MEDS ORDERED: AMLACTIN57 GM T (18:46)
[2019-03-20] MEDS ORDERED: NEURONTIN600 MG PO (18:46)
[2019-03-20] MEDS ORDERED: CYCLOBENZAPRINE10 MG PO (18:47)
--- NOTE | 2019-03-20 18:47 | NUR ---
A 48, admitted to , under the services of EDUAR Castillo DO with a diagnosis of CHF, EDEMA. Chief complaint is SWELLING. Patient arrived via bed from ER. Monitor applied. Initial assessment completed. Vital signs taken and recorded. EDUAR CASTILLO DO notified of admission to the unit. Orders received. See assessment for past medical history, medications and allergies. Patient and/or family oriented to unit. [facility] visitation policy reviewed. Clothing/patient valuable form completed. SHAUNA PATE
--- NOTE | 2019-03-20 18:50 | NUR ---
A 48yr old female admitted to , under the services of EDUAR Valentine DO with a diagnosis of peripheral edema, new onset CHF. Chief complaint is sent in by [facility] for swelling of lower legs. Patient arrived via stretcher from ER. Monitor applied. Initial assessment completed. Vital signs taken and recorded. See assessment for past medical history, medications and allergies. Patient and/or family oriented to unit. [facility] reviewed. Clothing/patient valuable form completed. ALLISON THOMPSON
--- NOTE | 2019-03-20 19:02 | NUR ---
DR BOLANOS NOTIFIED OF CONSULT.
[2019-03-20 19:13] VITALS: BP 116/87
[2019-03-20 20:00] VITALS: BP 137/88
[2019-03-21] VITALS: BP 131/72
--- NOTE | 2019-03-21 01:47 | NUR ---
24 HR chart check completed.
[2019-03-21 06:09] LABS: BASO % 0.4 % (0.0-1.0); EOS # 0.1 10*3/uL (0.0-0.4); EOS % 1.1 % (1.0-4.0); HEMATOCRIT 35.6 % (37.0-47.0); LYMPH # 1.1 10*3/uL (1.3-4.4); LYMPH % 11.3 % (27.0-41.0); MEAN CELL VOLUME 84.8 fl (81.0-99.0); MEAN CORPUSCULAR HGB 26.2 pg (27.0-31.0); MEAN CORPUSCULAR HGB CONC 30.9 g/dl (33.0-37.0); MONO # 0.5 10*3/uL (0.1-1.0); MONO % 5.3 % (3.0-9.0); NEUT # 8.2 10*3/uL (2.3-7.9); NEUT % 81.5 % (47.0-73.0); PLATELET COUNT AUTOMATED 240 10*3/uL (130-400); RED CELL DISTRI WIDTH 16.7 % (0-14.5); WHITE BLOOD COUNT 10.1 10*3/uL (4.8-10.8)
[2019-03-21 06:36] LABS: ACT PARTIAL THROMBO TIME 27.2 SECONDS (20.0-32.1); INTERNATIONAL NORM RATIO 0.9 (2.0-3.5)
[2019-03-21 06:37] LABS: ALBUMIN 2.9 gm/dl (3.1-4.5); ALKALINE PHOSPHATASE 75 U/L (45-117); BUN 14 mg/dl (7-24); CHLORIDE 105 mmol/L (98-107); CREATININE 0.58 mg/dL (0.55-1.02); PHOSPHOROUS 3.5 mg/dL (2.5-4.9); POTASSIUM 3.9 mmol/L (3.5-5.1); SGOT/AST 8 IU/L (3-35); SGPT/ALT 18 U/L (12-78); SODIUM 137 mmol/L (136-145); TOTAL PROTEIN 6.6 gm/dL (6.4-8.2)
--- NOTE | 2019-03-21 07:30 | NUR ---
Patient resting quietly with no c/o discomfort. Respirations easy and regular. Vital signs stable. No overt distress. BROCK WAGNER
[2019-03-21 08:00] VITALS: BP 120/70
[2019-03-21 08:00] LABS: VITAMIN D, 25-HYDROXY 10.6 ng/mL (30-100)
--- NOTE | 2019-03-21 08:15 | NUR ---
24 HR chart check completed.
--- NOTE | 2019-03-21 09:00 | NUR ---
Propulsion Motor And Generator Repairer in to talk to patient. Patient states lives at home with boyfriend. There are no steps in the home. Physician: joss serrano [facility]acy[facility] Home health services: [facility] Patient's level of ADLs: MINIMAL ASSIST Patient has working utilities: all working DME: rollator walker Follow-up physician's appointment after d/c: will be made by hospitalist nurse director upon discharge Does patient want to access PORTAL?: no Discharge plan discussed with patient, she lives at home with boyfriend, she uses a rollator walker for ambulation and requires minimal assistance with adls, [facility] and would like them to continue when she is medically stable for discharge, case management will follow. JUAN TURNER
--- NOTE | 2019-03-21 10:43 | NUR ---
PHYSICAL THERAPY Physical therapy evaluation completed. Full details and evaluation to follow. Moderate complexity skilled PT evaluation performed ([id number]). PT will work on strength, balance, transfers, and gait per POC. Recommend return home with home health upon discharge. Thank you, Janessa Méndez, SPT Radha Llamas,PT,DPT
--- NOTE | 2019-03-21 10:43 | NUR ---
Ocupational Therapy evaluation completed on 4 with full eval to follow. Precautions include obesity, IV UE,developmental disability, BLE edema,moderate complexity level 48905 via chart reveiw, testing and evaluation. Recommend OT per pOc and home with boyfriend and home health SN, PT,Ot. Thank you. Teodora Garrett OTr/l
[2019-03-21 12:00] VITALS: BP 124/74
--- NOTE | 2019-03-21 12:00 | NUR ---
Patient resting quietly with no c/o discomfort. Respirations easy and regular. Vital signs stable. No overt distress. BROCK WAGNER
[2019-03-21 16:00] VITALS: BP 110/76
--- NOTE | 2019-03-21 19:00 | NUR ---
24 HR chart check completed.
[2019-03-21 20:00] VITALS: BP 128/72
--- NOTE | 2019-03-21 20:44 | NUR ---
PATIENT COMPLAINED OF HEADACHE AT AN 8/. TYLENOL GIVEN PER PATIENT REQUEST. WILL ASSESS FOR EFFECTIVENESS.
--- NOTE | 2019-03-21 21:40 | NUR ---
PATIENT STATED TYLENOL WAS EFFECTIVE.
--- NOTE | 2019-03-22 | NUR ---
PATIENT REFUSED TO HAVE HER VITALS TAKEN AT THIS TIME.
[2019-03-22 06:07] LABS: BUN 11 mg/dl (7-24); CHLORIDE 99 mmol/L (98-107); CREATININE 0.73 mg/dL (0.55-1.02); POTASSIUM 3.7 mmol/L (3.5-5.1); SODIUM 134 mmol/L (136-145)
[2019-03-22 06:09] LABS: BASO # 0.1 10*3/uL (0.0-0.1); BASO % 0.5 % (0.0-1.0); EOS # 0.1 10*3/uL (0.0-0.4); EOS % 1.3 % (1.0-4.0); HEMATOCRIT 37.6 % (37.0-47.0); HEMOGLOBIN 11.8 g/dl (12.0-16.0); LYMPH # 1.3 10*3/uL (1.3-4.4); LYMPH % 13.8 % (27.0-41.0); MEAN CELL VOLUME 82.6 fl (81.0-99.0); MEAN CORPUSCULAR HGB 25.9 pg (27.0-31.0); MEAN CORPUSCULAR HGB CONC 31.4 g/dl (33.0-37.0); MEAN PLATELET VOLUME 10.8 fl (9.6-12.3); MONO # 0.6 10*3/uL (0.1-1.0); MONO % 6.2 % (3.0-9.0); NEUT # 7.3 10*3/uL (2.3-7.9); NEUT % 77.7 % (47.0-73.0); PLATELET COUNT AUTOMATED 268 10*3/uL (130-400); RED BLOOD COUNT 4.55 10*6/uL (4.10-5.10); RED CELL DISTRI WIDTH 16.7 % (0-14.5); WHITE BLOOD COUNT 9.4 10*3/uL (4.8-10.8)
--- NOTE | 2019-03-22 09:00 | NUR ---
case management visits with patient, she will return home when able and [facility] will continue, patient denies any other needs at this time
--- NOTE | 2019-03-22 09:31 | NUR ---
OT NOTE PATIENT SEEN FOR 15 MINUTE SESSION THIS DAY AND IDENTIFIED BY NAME AND . PATIENT SUPINE IN BED WITH HOB ELEVATED UPON ARRIVAL. PATIENT COMPLETED BED MOBILTIY AT SUPERVISION. STS FROM EOB WITH SUPERVISION. PATIENT UTILIZED ROLLAIDER FOR FUNCTIOAL MOBILTIY. FUNCTIONAL TRANSFER FROM LOW CHAIR REQUIRING MIN A FOR STS D/U NOTHING TO PUSH UP FROM. PATIENT COMPLETED FUNCTIONAL MOBILITY IN HALLWAY WITH MINIMAL CUES FOR SAFETY AWARENESS D/T LOW VISION. PATIENT RETURNED TO ROOM AND ABLE TO BIJU/DOFF SOCKS WHILE SEATED EOB REQUIRING MIN A TO BIJU R SOCK. SIT TO SUPINE FROM EOB WITH SUPERVISION. PATIENT ENDED SESSION SUPINE IN BED WITH HOB ELEVATED AND ALL ITEMS IN PLACE. CONTINUTE WITH CURRENT POC AND D/C PLAN TO HOME WITH HH. SUSAN KIRBY
--- NOTE | 2019-03-22 09:43 | NUR ---
PHYSICAL THERAPY Patient presented to therapy in supine with report of feeling a little better and no pain. Patient was identifed by name and . Patient gives informed consent for treatment. Patient has no bed alarm activated. Patient transferred supine to sitting at EOB with SBA. Patient sat on EOB unassisted. Patient sit to stand from EOB with SBA. Patient ambulated with Rollolator and CGA X 1 for 140' x 1 with no LOB, SOB, or other difficulty. Patient sat in LOW chair with CGA X 1. Patient sit to stand transfer from low chair with MIN A X 2 and no use of UEs, because there were no armrests. Patient performed ambulation back to bedside, which was another 15' x 1 with CGA X 1. Patient performed sit to supine transfer with SBA. Patient was left in supine in bed with head of bed elevated, call light within reach, and no bed alarm activated. Tray table near patient. Patient was 1:1 with this ARMAMENT INSTALLER for 18 minutes total. DYLON LEMUS ARMAMENT INSTALLER
[2019-03-22 12:00] VITALS: BP 125/65
[2019-03-22 15:55] VITALS: BP 98/73
[2019-03-22 20:00] VITALS: BP 126/79
[2019-03-23] VITALS: BP 122/84
--- NOTE | 2019-03-23 04:54 | NUR ---
24 HR chart check completed.
[2019-03-23 05:43] LABS: BUN 12 mg/dl (7-24); CHLORIDE 98 mmol/L (98-107); CREATININE 0.64 mg/dL (0.55-1.02); POTASSIUM 3.4 mmol/L (3.5-5.1); SODIUM 132 mmol/L (136-145)
--- NOTE | 2019-03-23 08:50 | NUR ---
Spoke with Dr. Zelaya regarding patient having multiple episodes of diarrhea. Patient was incontinent of stool.
[2019-03-23 08:55] VITALS: BP 110/80
--- NOTE | 2019-03-23 09:00 | NUR ---
case management visits with patient, she states she is hoping to be discharged home today, case management will notify [facility] when patient is discharged
--- NOTE | 2019-03-23 09:05 | NUR ---
PHYSICAL THERAPY PT SITTING EOB UPON ARRIVAL. PT REPORTED "I DO NOT FELL LIKE WALKING OR DOING ANYTHING." PT WILL TRY AGAIN AT A LATER TIME/DATE. PAUL CAGE PTA
[2019-03-23] MEDS ORDERED: LASIX20 MG PO (11:22)
[2019-03-23] MEDS ORDERED: NATURE'S BLEND F1 MG PO (11:27)
[2019-03-23] MEDS ORDERED: K-TAB ER8 MEQ PO (11:32)
[2019-03-23 12:00] VITALS: BP 112/83
--- NOTE | 2019-03-23 13:05 | NUR ---
Discharge instructions reviewed with patient/family. Patient receptive and verbalizes understanding. Follow-up care arranged. Written instructions given to patient/family. Patient and her boyfriend were educated on new priscriptions and follow up appointment with Dr. Cordero on 04-02-19. Patient ambulated from unit with boyfriend and all personal belongings. HUONG LU
--- NOTE | 2019-03-23 13:42 | NUR ---
PHYSICAL THERAPY CO-SIGN I approve of the Physical Therapy notes written above. ELY SUAREZ PT,DPT
--- NOTE | 2019-03-23 14:11 | NUR ---
Received order to [facility]. Contacted agency and faxed order and clinicals.
--- NOTE | 2019-03-23 14:59 | NUR ---
OCCUPATIONAL THERAPY CO-SIGN I approve of the Occupational Therapy notes written above. SOTO FALLON OTR/Alek
== END 2019-03-23 13:05 | disposition home health service (06) | DRG 861 ==
LOC: ED 15:04 → EDHOLD 17:26 → 4E 17:26
PROVIDERS: Internal Medicine; Physician Assistant; ADMIT Family Medicine
DX: R60.0 Localized edema (principal); E43 Unspecified severe protein-calorie malnutrition; D64.9 Anemia, unspecified; D72.810 Lymphocytopenia; I10 Essential (primary) hypertension; E53.8 Deficiency of other specified B group vitamins; E55.9 Vitamin D deficiency, unspecified; E78.00 Pure hypercholesterolemia, unspecified; R62.50 Unspecified lack of expected normal physiological development in childhood; R91.1 Solitary pulmonary nodule; F41.1 Generalized anxiety disorder; J45.909 Unspecified asthma, uncomplicated; H54.7 Unspecified visual loss; F32.9 Major depressive disorder, single episode, unspecified; E66.01 Morbid (severe) obesity due to excess calories; Z87.11 Personal history of peptic ulcer disease; Z87.891 Personal history of nicotine dependence; Z68.37 Body mass index [BMI] 37.0-37.9, adult; Z86.73 Personal history of transient ischemic attack (TIA), and cerebral infarction without residual deficits; Z93.1 Gastrostomy status; Z98.51 Tubal ligation status; Z79.51 Long term (current) use of inhaled steroids; Z79.899 Other long term (current) drug therapy; Z88.0 Allergy status to penicillin; Z88.8 Allergy status to other drugs, medicaments and biological substances; Z83.3 Family history of diabetes mellitus; Z80.8 Family history of malignant neoplasm of other organs or systems; Z82.49 Family history of ischemic heart disease and other diseases of the circulatory system; Z82.0 Family history of epilepsy and other diseases of the nervous system

== ENCOUNTER 2019-05-16 09:27 | Emergency (ER) | payer OTHER ==
[~2019-05-16] VITALS: Wt 118.4 kg
--- NOTE | ~2019-05-16 | EKG ---
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
[~2019-05-16 09:27] MED LIST changes: +AMLACTIN57 GM T; +CETIRIZINE10 MG PO; +K-TAB ER8 MEQ PO; +LASIX20 MG PO; +NATURE'S BLEND F1 MG PO; +Oscal,Oyster S500 MG PO
[2019-05-16 10:01] LABS: BASO # 0.1 10*3/uL (0.0-0.1); BASO % 0.8 % (0.0-1.0); EOS # 0.1 10*3/uL (0.0-0.4); HEMATOCRIT 39.9 % (37.0-47.0); HEMOGLOBIN 12.5 g/dl (12.0-16.0); LYMPH # 1.1 10*3/uL (1.3-4.4); LYMPH % 17.7 % (27.0-41.0); MEAN CELL VOLUME 85.8 fl (81.0-99.0); MEAN CORPUSCULAR HGB 26.9 pg (27.0-31.0); MEAN CORPUSCULAR HGB CONC 31.3 g/dl (33.0-37.0); MEAN PLATELET VOLUME 10.6 fl (9.6-12.3); MONO # 0.4 10*3/uL (0.1-1.0); MONO % 6.3 % (3.0-9.0); NEUT # 4.4 10*3/uL (2.3-7.9); NEUT % 72.7 % (47.0-73.0); PLATELET COUNT AUTOMATED 270 10*3/uL (130-400); RED BLOOD COUNT 4.65 10*6/uL (4.10-5.10)
[2019-05-16 10:12] LABS: ACT PARTIAL THROMBO TIME 28.6 SECONDS (20.0-32.1); INTERNATIONAL NORM RATIO 0.9 (2.0-3.5)
[2019-05-16 10:18] LABS: ALBUMIN 3.2 gm/dl (3.1-4.5); ALKALINE PHOSPHATASE 85 U/L (45-117); BUN 17 mg/dl (7-24); CHLORIDE 111 mmol/L (98-107); CREATININE 0.85 mg/dL (0.55-1.02); LIPASE 158 U/L (73-393); POTASSIUM 3.5 mmol/L (3.5-5.1); SGOT/AST 23 IU/L (3-35); SGPT/ALT 25 U/L (12-78); SODIUM 138 mmol/L (136-145); TOTAL PROTEIN 7.3 gm/dL (6.4-8.2)
[2019-05-16 10:20] LABS: TROPONIN I < 0.015 ng/ml (<0.045)
[2019-05-16 11:17] LABS: BILIRUBIN NEGATIVE (NEGATIVE); BLOOD NEGATIVE (NEGATIVE); CLARITY CLOUDY (CLEAR); COLOR YELLOW (YELLOW); GLUCOSE NEGATIVE (NEGATIVE); KETONE NEGATIVE (NEGATIVE); LEUKO ESTERASE 1+ (NEGATIVE); NITRITE NEGATIVE (NEGATIVE); PH 5.5 (5.0-9.0); SPECIFIC GRAVITY >= 1.030 (1.005-1.030); UROBILINOGEN 0.2 E.U./dl (0.2-1.0)
[2019-05-16 11:30] LABS: BACTERIA 4+; CALCIUM OXALATE CRYSTALS 3+; EPITHELIAL CELLS 25-30; MUCOUS 2+
[2019-05-16] MEDS ORDERED: ZOFRAN4 MG PO (13:04)
[2019-05-16] MEDS ORDERED: PEPCID20 MG PO (13:04)
[2019-05-17] MEDS ORDERED: FLAGYL500 MG PO (17:15)
[2019-05-17] MEDS ORDERED: CIPRO500 MG PO (17:15)
== END 2019-05-16 13:09 | disposition home or self-care (01) ==
LOC: ED 09:27
PROVIDERS: Emergency Medicine
DX: R11.2 Nausea with vomiting, unspecified (principal); R10.84 Generalized abdominal pain; R07.81 Pleurodynia; J45.909 Unspecified asthma, uncomplicated; I10 Essential (primary) hypertension; E78.00 Pure hypercholesterolemia, unspecified; E66.01 Morbid (severe) obesity due to excess calories; G62.9 Polyneuropathy, unspecified; Z88.0 Allergy status to penicillin; Z88.6 Allergy status to analgesic agent; Z79.899 Other long term (current) drug therapy; Z86.73 Personal history of transient ischemic attack (TIA), and cerebral infarction without residual deficits; Z87.891 Personal history of nicotine dependence

== ENCOUNTER 2019-05-16 18:45 | Inpatient (IN) | payer OTHER ==
[~2019-05-16] VITALS: Ht 170.1 cm; Wt 118.4 kg
[~2019-05-16 18:45] MED LIST changes: +ZOFRAN4 MG PO
[2019-05-16 18:48] VITALS: BP 142/75
[2019-05-16 20:48] VITALS: BP 150/68
[2019-05-16 21:00] VITALS: BP 150/90
--- NOTE | 2019-05-16 21:00 | NUR ---
Time: 2099 A 49 year old FEMALE admitted to under services of RAYNA BLANCA DO, Pt. arrived via stretcher from ER. Chief complaint: AB PAIN. TERRELL ZAFAR
--- NOTE | 2019-05-16 23:52 | NUR ---
PATIENT HAS COMPLAINT OF HEADACHE, UPPER AB PAIN, AND RESTLESS LEG/TINGLING IN FEET. TYLENOL, ZOFRAN, MOM, AND HER LYRCIA WAS GIVEN. WILL MONITOR AND REASSESS.
[2019-05-17] VITALS: BP 108/56
--- NOTE | 2019-05-17 03:00 | NUR ---
PATIENT STATED SHE IS STARTING TO FEEL BETTER. NO NAUSEA, NO PAIN.
[2019-05-17 06:52] LABS: BASO # 0.1 10*3/uL (0.0-0.1); BASO % 0.8 % (0.0-1.0); EOS # 0.1 10*3/uL (0.0-0.4); EOS % 1.5 % (1.0-4.0); HEMATOCRIT 34.4 % (37.0-47.0); HEMOGLOBIN 10.7 g/dl (12.0-16.0); LYMPH # 1.1 10*3/uL (1.3-4.4); LYMPH % 16.3 % (27.0-41.0); MEAN CELL VOLUME 86.4 fl (81.0-99.0); MEAN CORPUSCULAR HGB 26.9 pg (27.0-31.0); MEAN CORPUSCULAR HGB CONC 31.1 g/dl (33.0-37.0); MEAN PLATELET VOLUME 10.3 fl (9.6-12.3); MONO # 0.4 10*3/uL (0.1-1.0); MONO % 6.5 % (3.0-9.0); NEUT % 74.6 % (47.0-73.0); PLATELET COUNT AUTOMATED 237 10*3/uL (130-400); RED BLOOD COUNT 3.98 10*6/uL (4.10-5.10); WHITE BLOOD COUNT 6.6 10*3/uL (4.8-10.8)
[2019-05-17 07:22] LABS: BUN 11 mg/dl (7-24); CHLORIDE 110 mmol/L (98-107); POTASSIUM 3.4 mmol/L (3.5-5.1); SODIUM 140 mmol/L (136-145)
[2019-05-17 07:28] LABS: CHOLESTEROL 164 mg/dL (<200); CREATININE 0.75 mg/dL (0.55-1.02); HDL CHOLESTEROL 26 mg/dl (40-60); LDL CHOLESTEROL 106 mg/dL (9-159); PHOSPHOROUS 3.5 mg/dL (2.5-4.9); TRIGLYCERIDES 160 mg/dl (<150); VLDL CHOLESTEROL 32 mg/dL (6-40)
[2019-05-17 08:00] VITALS: BP 110/66
--- NOTE | 2019-05-17 09:00 | NUR ---
Picking Machine Operator Helper in to talk to patient. Patient states lives at home with boyfriend. There are few steps in the home. Physician: joss serrano [facility]: [facility] Patient's level of ADLs: INDEPENDENT Patient has working utilities: all working DME: rollator walker Follow-up physician's appointment after d/c: will be made by hospitalist nurse director upon discharge Does patient want to access PORTAL?: no Discharge plan discussed with patient, she lives at home with boyfriend, she uses a rollator walker for ambualtion and is independent in adls, she has community home health currently, she states she will return home when medically stable and continue home health services, case management will notify community when patient is discharged. JUAN TURNER
[2019-05-17 12:00] VITALS: BP 122/72
[2019-05-17 16:00] VITALS: BP 122/72
[2019-05-17] MEDS ORDERED: FLAGYL500 MG PO (17:15)
[2019-05-17] MEDS ORDERED: CIPRO500 MG PO (17:15)
--- NOTE | 2019-05-17 17:27 | NUR ---
Discharge instructions reviewed with patient/family. Patient receptive and verbalizes understanding. Follow-up care arranged. Written instructions given to patient/family. CHRIS IRAHETA
== END 2019-05-17 17:30 | disposition home or self-care (01) | DRG 249 ==
LOC: ED 18:45 → EDHOLD 19:35 → 4E 19:35
PROVIDERS: Student in an Organized Health Care Education/Training Program; ADMIT Internal Medicine
DX: K52.9 Noninfective gastroenteritis and colitis, unspecified (principal); E44.0 Moderate protein-calorie malnutrition; E87.8 Other disorders of electrolyte and fluid balance, not elsewhere classified; E87.2 Acidosis; J45.909 Unspecified asthma, uncomplicated; F41.1 Generalized anxiety disorder; E78.00 Pure hypercholesterolemia, unspecified; R73.9 Hyperglycemia, unspecified; N83.202 Unspecified ovarian cyst, left side; N83.201 Unspecified ovarian cyst, right side; F32.9 Major depressive disorder, single episode, unspecified; E55.9 Vitamin D deficiency, unspecified; I10 Essential (primary) hypertension; G62.9 Polyneuropathy, unspecified; E66.01 Morbid (severe) obesity due to excess calories; E53.8 Deficiency of other specified B group vitamins; Z88.0 Allergy status to penicillin; Z88.6 Allergy status to analgesic agent; Z98.51 Tubal ligation status; Z87.891 Personal history of nicotine dependence; Z82.49 Family history of ischemic heart disease and other diseases of the circulatory system; Z82.0 Family history of epilepsy and other diseases of the nervous system; Z83.3 Family history of diabetes mellitus; Z80.8 Family history of malignant neoplasm of other organs or systems; Z86.73 Personal history of transient ischemic attack (TIA), and cerebral infarction without residual deficits; Z87.11 Personal history of peptic ulcer disease; Z79.899 Other long term (current) drug therapy; Z68.41 Body mass index [BMI] 40.0-44.9, adult

== ENCOUNTER 2019-09-12 10:59 | Emergency (ER) | payer OTHER ==
[~2019-09-12] VITALS: Ht 170.1 cm; Wt 107.5 kg
[2019-09-12 12:22] LABS: BASO % 0.7 % (0.0-1.0); EOS % 0.7 % (1.0-4.0); HEMATOCRIT 40.4 % (37.0-47.0); LYMPH # 0.7 10*3/uL (1.3-4.4); LYMPH % 12.7 % (27.0-41.0); MEAN CELL VOLUME 86.7 fl (81.0-99.0); MEAN CORPUSCULAR HGB 27.9 pg (27.0-31.0); MEAN CORPUSCULAR HGB CONC 32.2 g/dl (33.0-37.0); MEAN PLATELET VOLUME 11.7 fl (9.6-12.3); MONO # 0.4 10*3/uL (0.1-1.0); MONO % 6.7 % (3.0-9.0); NEUT # 4.4 10*3/uL (2.3-7.9); PLATELET COUNT AUTOMATED 189 10*3/uL (130-400); RED BLOOD COUNT 4.66 10*6/uL (4.10-5.10); WHITE BLOOD COUNT 5.5 10*3/uL (4.8-10.8)
[2019-09-12 12:38] LABS: ALBUMIN 3.6 gm/dl (3.1-4.5); ALKALINE PHOSPHATASE 66 U/L (45-117); BUN 11 mg/dl (7-24); CHLORIDE 107 mmol/L (98-107); CREATININE 0.84 mg/dL (0.55-1.02); POTASSIUM 3.2 mmol/L (3.5-5.1); SGOT/AST 25 IU/L (3-35); SGPT/ALT 30 U/L (12-78); SODIUM 136 mmol/L (136-145); TOTAL PROTEIN 7.1 gm/dL (6.4-8.2)
[2019-09-12 14:36] LABS: BILIRUBIN NEGATIVE (NEGATIVE); BLOOD NEGATIVE (NEGATIVE); CLARITY CLEAR (CLEAR); COLOR YELLOW (YELLOW); GLUCOSE NEGATIVE (NEGATIVE); KETONE NEGATIVE (NEGATIVE); LEUKO ESTERASE NEGATIVE (NEGATIVE); NITRITE NEGATIVE (NEGATIVE); PH 6.5 (5.0-9.0); SPECIFIC GRAVITY 1.005 (1.005-1.030); UROBILINOGEN 0.2 E.U./dl (0.2-1.0)
[2019-09-12 14:37] LABS: EPITHELIAL CELLS 0-2
== END 2019-09-12 15:09 | disposition home or self-care (01) ==
LOC: ED 10:59
PROVIDERS: Internal Medicine
DX: I10 Essential (primary) hypertension (principal); E78.00 Pure hypercholesterolemia, unspecified; F41.9 Anxiety disorder, unspecified; F32.9 Major depressive disorder, single episode, unspecified; Z88.0 Allergy status to penicillin; Z88.8 Allergy status to other drugs, medicaments and biological substances; Z79.899 Other long term (current) drug therapy; Z79.2 Long term (current) use of antibiotics

== ENCOUNTER 2019-09-23 11:13 | Emergency (ER) | payer OTHER ==
[~2019-09-23] VITALS: Ht 170.1 cm; Wt 107.5 kg
[2019-09-23 12:18] LABS: BASO % 0.5 % (0.0-1.0); EOS % 0.4 % (1.0-4.0); HEMATOCRIT 43.6 % (37.0-47.0); HEMOGLOBIN 13.7 g/dl (12.0-16.0); LYMPH # 0.7 10*3/uL (1.3-4.4); LYMPH % 8.3 % (27.0-41.0); MEAN CELL VOLUME 86.2 fl (81.0-99.0); MEAN CORPUSCULAR HGB 27.1 pg (27.0-31.0); MEAN CORPUSCULAR HGB CONC 31.4 g/dl (33.0-37.0); MEAN PLATELET VOLUME 11.8 fl (9.6-12.3); MONO # 0.5 10*3/uL (0.1-1.0); MONO % 5.5 % (3.0-9.0); NEUT # 7.2 10*3/uL (2.3-7.9); NEUT % 84.9 % (47.0-73.0); PLATELET COUNT AUTOMATED 192 10*3/uL (130-400); RED BLOOD COUNT 5.06 10*6/uL (4.10-5.10); RED CELL DISTRI WIDTH 16.1 % (0-14.5); WHITE BLOOD COUNT 8.5 10*3/uL (4.8-10.8)
[2019-09-23 12:31] LABS: ACT PARTIAL THROMBO TIME 27.1 SECONDS (20.0-32.1)
[2019-09-23 12:35] LABS: ALBUMIN 3.4 gm/dl (3.1-4.5); ALKALINE PHOSPHATASE 65 U/L (45-117); BUN 13 mg/dl (7-24); CHLORIDE 111 mmol/L (98-107); CREATININE 0.91 mg/dL (0.55-1.02); LIPASE 232 U/L (73-393); POTASSIUM 3.2 mmol/L (3.5-5.1); SGOT/AST 22 IU/L (3-35); SGPT/ALT 23 U/L (12-78); SODIUM 138 mmol/L (136-145); TOTAL PROTEIN 7.2 gm/dL (6.4-8.2)
[2019-09-23 12:41] LABS: BILIRUBIN NEGATIVE (NEGATIVE); BLOOD NEGATIVE (NEGATIVE); CLARITY CLOUDY (CLEAR); COLOR YELLOW (YELLOW); GLUCOSE NEGATIVE (NEGATIVE); KETONE NEGATIVE (NEGATIVE); LEUKO ESTERASE 2+ (NEGATIVE); NITRITE NEGATIVE (NEGATIVE); PH 5.5 (5.0-9.0); UROBILINOGEN 0.2 E.U./dl (0.2-1.0)
[2019-09-23 12:46] LABS: TROPONIN I < 0.015 ng/ml (<0.045)
[2019-09-23 13:09] LABS: BACTERIA 3+; CALCIUM OXALATE CRYSTALS 2+; EPITHELIAL CELLS 15-20; WBC 31-40 wbc/hpf (0-5)
[2019-09-23] MEDS ORDERED: CIPROFLOXACIN500 M4 PO (15:50)
== END 2019-09-23 15:55 | disposition home or self-care (01) ==
LOC: ED 11:13
PROVIDERS: Nurse Practitioner Family
DX: N39.0 Urinary tract infection, site not specified (principal); E87.6 Hypokalemia; Z88.0 Allergy status to penicillin; Z88.6 Allergy status to analgesic agent; Z79.899 Other long term (current) drug therapy; Z87.891 Personal history of nicotine dependence

== ENCOUNTER 2019-10-03 19:27 | Inpatient (IN) | payer OTHER ==
[~2019-10-03] VITALS: Ht 167.6 cm; Wt 105.5 kg
[~2019-10-03 19:27] MED LIST changes: +CIPROFLOXACIN500 M4 PO
[2019-10-03 19:31] VITALS: BP 116/75
[2019-10-03 20:10] LABS: BASO # 0.1 10*3/uL (0.0-0.1); BASO % 0.8 % (0.0-1.0); EOS # 0.1 10*3/uL (0.0-0.4); EOS % 1.1 % (1.0-4.0); HEMATOCRIT 40.6 % (37.0-47.0); HEMOGLOBIN 13.1 g/dl (12.0-16.0); LYMPH # 1.2 10*3/uL (1.3-4.4); LYMPH % 14.9 % (27.0-41.0); MEAN CORPUSCULAR HGB 27.8 pg (27.0-31.0); MEAN CORPUSCULAR HGB CONC 32.3 g/dl (33.0-37.0); MEAN PLATELET VOLUME 11.5 fl (9.6-12.3); MONO # 0.6 10*3/uL (0.1-1.0); MONO % 7.5 % (3.0-9.0); NEUT # 5.9 10*3/uL (2.3-7.9); NEUT % 75.4 % (47.0-73.0); PLATELET COUNT AUTOMATED 236 10*3/uL (130-400); RED BLOOD COUNT 4.72 10*6/uL (4.10-5.10); RED CELL DISTRI WIDTH 16.5 % (0-14.5); WHITE BLOOD COUNT 7.8 10*3/uL (4.8-10.8)
[2019-10-03] MEDS ORDERED: VIIBRYD40 PO (20:17)
[2019-10-03] MEDS ORDERED: REXULTI2 MG PO (20:17)
[2019-10-03 20:29] LABS: ALBUMIN 3.5 gm/dl (3.1-4.5); ALKALINE PHOSPHATASE 63 U/L (45-117); BUN 9 mg/dl (7-24); CHLORIDE 108 mmol/L (98-107); CREATININE 0.78 mg/dL (0.55-1.02); SGOT/AST 35 IU/L (3-35); SGPT/ALT 27 U/L (12-78); SODIUM 138 mmol/L (136-145); TOTAL PROTEIN 7.2 gm/dL (6.4-8.2)
[2019-10-03 20:30] VITALS: BP 110/67
[2019-10-03 20:30] LABS: ETHYL ALCOHOL < 3.0 mg/dl (<3); TROPONIN I < 0.015 ng/ml (<0.045)
[2019-10-03 21:17] LABS: COLOR YELLOW (YELLOW)
[2019-10-03 21:18] LABS: BILIRUBIN NEGATIVE (NEGATIVE); BLOOD NEGATIVE (NEGATIVE); CLARITY SL CLOUDY (CLEAR); GLUCOSE NEGATIVE (NEGATIVE); KETONE TRACE (NEGATIVE); LEUKO ESTERASE NEGATIVE (NEGATIVE); NITRITE NEGATIVE (NEGATIVE); SPECIFIC GRAVITY 1.015 (1.005-1.030); UROBILINOGEN 0.2 E.U./dl (0.2-1.0)
[2019-10-03 21:23] LABS: RBC 0-2 rbc/hpf (0-2)
[2019-10-03 21:24] LABS: BACTERIA 2+; MUCOUS TRACE
[2019-10-03 21:26] LABS: URINE AMPHETAMINES < 1000 (1000ng/ml); URINE BARBITURATES < 200 (200ng/ml); URINE BENZODIAZEPINES < 200 (200ng/ml); URINE CANNABINOIDS (THC) < 50 (50ng/ml); URINE COCAINE < 300 (300ng/ml); URINE METHADONE < 300 (300ng/ml); URINE OPIATES < 300 (300ng/ml)
[2019-10-03 21:28] LABS: URINE PHENCYCLIDINE < 25 (25ng/ml)
[2019-10-03 21:30] VITALS: BP 111/58
[2019-10-03 22:11] VITALS: BP 105/71
[2019-10-03 22:40] VITALS: BP 96/74
[2019-10-03] MEDS ORDERED: FUROSEMIDE20 M1 PO (22:57)
[2019-10-03] MEDS ORDERED: OMEPRAZOLE MAGN20 MG PO (23:00)
[2019-10-03] MEDS ORDERED: TOPIRAMATE100 M2 PO (23:02)
[2019-10-03] MEDS ORDERED: FEROSUL325 MG PO (23:07)
[2019-10-04 00:30] VITALS: BP 104/74
[2019-10-04 05:56] LABS: BUN 11 mg/dl (7-24); CHLORIDE 109 mmol/L (98-107); CHOLESTEROL 171 mg/dL (<200); CREATININE 0.66 mg/dL (0.55-1.02); HDL CHOLESTEROL 31 mg/dl (40-60); LDL CHOLESTEROL 110 mg/dL (9-159); PHOSPHOROUS 4.3 mg/dL (2.5-4.9); POTASSIUM 3.3 mmol/L (3.5-5.1); SODIUM 140 mmol/L (136-145); TRIGLYCERIDES 148 mg/dl (<150); VLDL CHOLESTEROL 30 mg/dL (6-40)
[2019-10-04 08:00] VITALS: BP 103/58; BP 116/78
[2019-10-04 12:00] VITALS: BP 96/72
[2019-10-04] MEDS ORDERED: ARNUITY ELLIPT50 MCG INH (13:44)
[2019-10-04] MEDS ORDERED: DOXEPIN HCL45 GM T (13:46)
[2019-10-04] MEDS ORDERED: ARTHRITIS PAIN650 M3 PO (13:47)
[2019-10-04 16:00] VITALS: BP 99/71
[2019-10-04 20:00] VITALS: BP 115/83
[2019-10-05] VITALS: BP 102/71
[2019-10-05 06:02] LABS: BASO # 0.1 10*3/uL (0.0-0.1); BASO % 0.9 % (0.0-1.0); EOS # 0.2 10*3/uL (0.0-0.4); EOS % 2.1 % (1.0-4.0); HEMATOCRIT 42.5 % (37.0-47.0); HEMOGLOBIN 13.5 g/dl (12.0-16.0); LYMPH # 1.2 10*3/uL (1.3-4.4); LYMPH % 15.2 % (27.0-41.0); MEAN CELL VOLUME 86.9 fl (81.0-99.0); MEAN CORPUSCULAR HGB 27.6 pg (27.0-31.0); MEAN CORPUSCULAR HGB CONC 31.8 g/dl (33.0-37.0); MEAN PLATELET VOLUME 11.8 fl (9.6-12.3); MONO # 0.6 10*3/uL (0.1-1.0); MONO % 7.6 % (3.0-9.0); NEUT # 5.9 10*3/uL (2.3-7.9); NEUT % 73.8 % (47.0-73.0); PLATELET COUNT AUTOMATED 285 10*3/uL (130-400); RED BLOOD COUNT 4.89 10*6/uL (4.10-5.10); RED CELL DISTRI WIDTH 16.6 % (0-14.5)
[2019-10-05 06:08] LABS: BUN 12 mg/dl (7-24); CHLORIDE 106 mmol/L (98-107); CREATININE 0.82 mg/dL (0.55-1.02); POTASSIUM 3.5 mmol/L (3.5-5.1); SODIUM 136 mmol/L (136-145); THYROXINE (T4) TOTAL 12.9 ug/dl (4.8-13.9)
[2019-10-05 06:31] LABS: T3 UPTAKE 35 % (31-39)
[2019-10-05 08:10] VITALS: BP 96/48
[2019-10-05 11:30] VITALS: BP 96/55
[2019-10-05] MEDS ORDERED: VITAMIN D3125 MC1 PO (12:21)
== END 2019-10-05 14:00 | disposition home or self-care (01) | DRG 52 ==
LOC: ED 19:27 → 4NE 21:33 → EDHOLD 21:33 → 4NE 21:51
PROVIDERS: Hospitalist; Physician Assistant; Student in an Organized Health Care Education/Training Program; ADMIT Internal Medicine
DX: G93.41 Metabolic encephalopathy (principal); E87.2 Acidosis; E44.1 Mild protein-calorie malnutrition; E87.6 Hypokalemia; R00.0 Tachycardia, unspecified; E87.8 Other disorders of electrolyte and fluid balance, not elsewhere classified; R73.9 Hyperglycemia, unspecified; E78.00 Pure hypercholesterolemia, unspecified; J45.909 Unspecified asthma, uncomplicated; F41.1 Generalized anxiety disorder; H54.61 Unqualified visual loss, right eye, normal vision left eye; I10 Essential (primary) hypertension; E55.9 Vitamin D deficiency, unspecified; F33.2 Major depressive disorder, recurrent severe without psychotic features; G62.9 Polyneuropathy, unspecified; E53.8 Deficiency of other specified B group vitamins; E66.9 Obesity, unspecified; T50.995A Adverse effect of other drugs, medicaments and biological substances, initial encounter; Y92.89 Other specified places as the place of occurrence of the external cause; Z88.0 Allergy status to penicillin; Z88.6 Allergy status to analgesic agent; Z98.51 Tubal ligation status; Z87.891 Personal history of nicotine dependence; Z82.49 Family history of ischemic heart disease and other diseases of the circulatory system; Z82.0 Family history of epilepsy and other diseases of the nervous system; Z83.3 Family history of diabetes mellitus; Z80.8 Family history of malignant neoplasm of other organs or systems; Z86.73 Personal history of transient ischemic attack (TIA), and cerebral infarction without residual deficits; Z79.899 Other long term (current) drug therapy; Z68.37 Body mass index [BMI] 37.0-37.9, adult

== ENCOUNTER 2020-01-04 13:35 | Inpatient (IN) | payer OTHER ==
[2020-01-04] VITALS (8 sets, daily range): BP systolic 60–124; BP diastolic 20–94
[~2020-01-04] VITALS: Ht 167.6 cm; Wt 89.0 kg
[~2020-01-04 13:35] MED LIST changes: +ARNUITY ELLIPT50 MCG INH; +ARTHRITIS PAIN650 M3 PO; +DOXEPIN HCL45 GM T; +FEROSUL325 MG PO; +FUROSEMIDE20 M1 PO; +OMEPRAZOLE MAGN20 MG PO; +REXULTI2 MG PO; +TOPIRAMATE100 M2 PO; +VIIBRYD40 PO; +VITAMIN D3125 MC1 PO
[2020-01-04 14:02] LABS: HEMATOCRIT 43.7 % (37.0-47.0); MEAN CELL VOLUME 90.3 fl (81.0-99.0); MEAN CORPUSCULAR HGB 28.5 pg (27.0-31.0); MEAN CORPUSCULAR HGB CONC 31.6 g/dl (33.0-37.0); MEAN PLATELET VOLUME 11.9 fl (9.6-12.3); PLATELET COUNT AUTOMATED 237 10*3/uL (130-400); RED BLOOD COUNT 4.84 10*6/uL (4.10-5.10); RED CELL DISTRI WIDTH 15.4 % (0-14.5); WHITE BLOOD COUNT 14.4 10*3/uL (4.8-10.8)
[2020-01-04 14:12] LABS: ACT PARTIAL THROMBO TIME 26.4 SECONDS (20.0-32.1)
[2020-01-04 14:28] LABS: BASOPHILS 1 % (0-1); BURR CELLS FEW; PLATELET SUFFICIENCY NORMAL (NORMAL); TOTAL CELLS COUNTED 100 #CELLS
[2020-01-04 14:44] LABS: ALBUMIN 3.4 gm/dl (3.1-4.5); ALKALINE PHOSPHATASE 73 U/L (45-117); BUN 15 mg/dl (7-24); CHLORIDE 109 mmol/L (98-107); CREATININE 1.32 mg/dL (0.55-1.02); LIPASE 308 U/L (73-393); POTASSIUM 3.5 mmol/L (3.5-5.1); SGOT/AST 49 IU/L (3-35); SGPT/ALT 22 U/L (12-78); SODIUM 138 mmol/L (136-145); TOTAL PROTEIN 6.7 gm/dL (6.4-8.2)
[2020-01-04 14:46] LABS: TROPONIN I < 0.015 ng/ml (<0.045)
[2020-01-04 15:10] LABS: BILIRUBIN NEGATIVE (NEGATIVE); BLOOD NEGATIVE (NEGATIVE); CLARITY CLEAR (CLEAR); COLOR YELLOW (YELLOW); GLUCOSE NEGATIVE (NEGATIVE); KETONE NEGATIVE (NEGATIVE); NITRITE NEGATIVE (NEGATIVE); UROBILINOGEN 0.2 E.U./dl (0.2-1.0)
[2020-01-04 15:11] LABS: BACTERIA TRACE; EPITHELIAL CELLS 0-2; LEUKO ESTERASE NEGATIVE (NEGATIVE); RBC 0-2 rbc/hpf (0-2)
[2020-01-04] MEDS ORDERED: TRINTELLIX20 MG PO (16:12)
[2020-01-04] MEDS ORDERED: MELATONIN3 M3 PO (16:13)
[2020-01-05] VITALS: BP 95/69
[2020-01-05 04:00] VITALS: BP 111/72
[2020-01-05 06:21] LABS: BASO % 0.5 % (0.0-1.0); EOS % 0.5 % (1.0-4.0); HEMATOCRIT 35.1 % (37.0-47.0); LYMPH # 1.1 10*3/uL (1.3-4.4); MEAN CELL VOLUME 87.8 fl (81.0-99.0); MEAN CORPUSCULAR HGB 28.3 pg (27.0-31.0); MEAN CORPUSCULAR HGB CONC 32.2 g/dl (33.0-37.0); MEAN PLATELET VOLUME 12.1 fl (9.6-12.3); MONO # 0.6 10*3/uL (0.1-1.0); MONO % 6.3 % (3.0-9.0); NEUT # 6.9 10*3/uL (2.3-7.9); PLATELET COUNT AUTOMATED 178 10*3/uL (130-400); RED CELL DISTRI WIDTH 15.6 % (0-14.5); WHITE BLOOD COUNT 8.7 10*3/uL (4.8-10.8)
[2020-01-05 06:48] LABS: ACT PARTIAL THROMBO TIME 27.1 SECONDS (20.0-32.1); INTERNATIONAL NORM RATIO 1.1 (2.0-3.5)
[2020-01-05 07:07] LABS: VITAMIN D, 25-HYDROXY 14.9 ng/mL (30-100)
[2020-01-05 07:15] LABS: ALBUMIN 2.8 gm/dl (3.1-4.5); ALKALINE PHOSPHATASE 50 U/L (45-117); BUN 9 mg/dl (7-24); CHLORIDE 112 mmol/L (98-107); CHOLESTEROL 151 mg/dL (<200); CREATININE 0.54 mg/dL (0.55-1.02); HDL CHOLESTEROL 25 mg/dl (40-60); LDL CHOLESTEROL 103 mg/dL (9-159); SGOT/AST 24 IU/L (3-35); SGPT/ALT 20 U/L (12-78); SODIUM 138 mmol/L (136-145); TOTAL PROTEIN 5.8 gm/dL (6.4-8.2); TRIGLYCERIDES 115 mg/dl (<150); VLDL CHOLESTEROL 23 mg/dL (6-40)
[2020-01-05 07:21] LABS: FREE T4 1.15 ng/dl (0.76-1.46)
[2020-01-05 08:00] VITALS: BP 111/73
[2020-01-05] MEDS ORDERED: ZITHROMAX250 MG PO (09:32)
== END 2020-01-05 10:23 | disposition home or self-care (01) | DRG 720 ==
LOC: ED 13:35 → EDHOLD 15:40 → ICCU 15:55
PROVIDERS: Emergency Medicine; Hospitalist; ADMIT Internal Medicine
DX: A41.9 Sepsis, unspecified organism (principal); R65.20 Severe sepsis without septic shock; J18.9 Pneumonia, unspecified organism; I95.89 Other hypotension; E86.1 Hypovolemia; N17.0 Acute kidney failure with tubular necrosis; E86.0 Dehydration; J45.909 Unspecified asthma, uncomplicated; F41.1 Generalized anxiety disorder; F32.9 Major depressive disorder, single episode, unspecified; I10 Essential (primary) hypertension; E87.2 Acidosis; R91.8 Other nonspecific abnormal finding of lung field; R59.0 Localized enlarged lymph nodes; H54.3 Unqualified visual loss, both eyes; G62.9 Polyneuropathy, unspecified; E66.01 Morbid (severe) obesity due to excess calories; Z68.31 Body mass index [BMI] 31.0-31.9, adult; Z86.73 Personal history of transient ischemic attack (TIA), and cerebral infarction without residual deficits; Z88.0 Allergy status to penicillin; Z88.6 Allergy status to analgesic agent; Z87.891 Personal history of nicotine dependence; Z98.51 Tubal ligation status; Z82.49 Family history of ischemic heart disease and other diseases of the circulatory system; Z82.0 Family history of epilepsy and other diseases of the nervous system; Z79.899 Other long term (current) drug therapy

== ENCOUNTER 2020-03-04 15:10 | Observation (INO) | payer OTHER ==
[2020-03-04] VITALS (8 sets, daily range): BP systolic 97–141; BP diastolic 55–94
[~2020-03-04] VITALS: Ht 170.1 cm; Wt 93.6 kg
[~2020-03-04 15:10] MED LIST changes: +MELATONIN3 M3 PO
[2020-03-04 15:48] LABS: BASO # 0.1 10*3/uL (0.0-0.1); BASO % 0.5 % (0.0-1.0); EOS % 0.2 % (1.0-4.0); HEMATOCRIT 43.6 % (37.0-47.0); LYMPH # 0.9 10*3/uL (1.3-4.4); LYMPH % 6.1 % (27.0-41.0); MEAN CELL VOLUME 88.1 fl (81.0-99.0); MEAN CORPUSCULAR HGB 29.1 pg (27.0-31.0); MONO # 0.7 10*3/uL (0.1-1.0); MONO % 4.8 % (3.0-9.0); NEUT # 12.7 10*3/uL (2.3-7.9); NEUT % 87.9 % (47.0-73.0); PLATELET COUNT AUTOMATED 286 10*3/uL (130-400); RED BLOOD COUNT 4.95 10*6/uL (4.10-5.10); RED CELL DISTRI WIDTH 14.8 % (0-14.5); WHITE BLOOD COUNT 14.4 10*3/uL (4.8-10.8)
[2020-03-04 16:03] LABS: ALBUMIN 3.6 gm/dl (3.1-4.5); ALKALINE PHOSPHATASE 70 U/L (45-117); BUN 14 mg/dl (7-24); CHLORIDE 106 mmol/L (98-107); CREATININE 0.95 mg/dL (0.55-1.02); POTASSIUM 3.3 mmol/L (3.5-5.1); SGOT/AST 16 IU/L (3-35); SGPT/ALT 12 U/L (12-78); SODIUM 134 mmol/L (136-145); TOTAL PROTEIN 7.5 gm/dL (6.4-8.2)
[2020-03-04 16:04] LABS: TROPONIN I < 0.015 ng/ml (<0.045)
[2020-03-04 16:07] LABS: ACT PARTIAL THROMBO TIME 29.2 SECONDS (20.0-32.1)
--- NOTE | 2020-03-04 19:20 | NUR ---
Transfer of care from Vicki loredo,
--- NOTE | 2020-03-04 19:33 | NUR ---
Boyfriend updated on pt status.
--- NOTE | 2020-03-04 19:58 | NUR ---
In to see pt at this time.Pt resting comfortable and does not need anything.Pt has diminished lung sounds at this tiime and left ac iv clamped at this time.Some depedent edema noted in b/l lower legs at this time.
--- NOTE | 2020-03-04 20:25 | NUR ---
Boyfriend updated on pt status.
--- NOTE | 2020-03-04 20:58 | NUR ---
In to see pt at this time.Pt is alert and oriemtated at this time.Pt denines mo opem wounds expect left big toenail which is missing at this time.Pt states she does not want any pictures of toenail at this time.
--- NOTE | 2020-03-04 23:01 | NUR ---
In to see pt at this time and pt currently sleeping.
[2020-03-04 23:57] LABS: ALBUMIN 3.4 gm/dl (3.1-4.5); ALKALINE PHOSPHATASE 69 U/L (45-117); BUN 14 mg/dl (7-24); CHLORIDE 105 mmol/L (98-107); CREATININE 0.77 mg/dL (0.55-1.02); POTASSIUM 3.3 mmol/L (3.5-5.1); SGOT/AST 16 IU/L (3-35); SGPT/ALT 14 U/L (12-78); SODIUM 137 mmol/L (136-145); TOTAL PROTEIN 7.1 gm/dL (6.4-8.2)
[2020-03-05] VITALS: BP 129/75
--- NOTE | 2020-03-05 00:15 | NUR ---
Pt is alert and orientated and denies open wounds.Pt states she has missing toenail and its yellow brown noted under bandaid.Pt does not want any photos taken at this time.
[2020-03-05 00:38] LABS: BILIRUBIN NEGATIVE; BLOOD NEGATIVE (NEGATIVE); CLARITY CLEAR (CLEAR); COLOR YELLOW (YELLOW); GLUCOSE NEGATIVE; KETONE NEGATIVE; LEUKO ESTERASE 2+ (NEGATIVE); NITRITE NEGATIVE (NEGATIVE); PH 5.5 (4.5-8.0); SPECIFIC GRAVITY 1.015 (1.001-1.030)
[2020-03-05 00:46] LABS: WBC 21-30 wbc/hpf (0-5)
[2020-03-05 00:54] VITALS: BP 136/89
--- NOTE | 2020-03-05 00:54 | NUR ---
A 49, admitted to , under the services of RAYNA Blanca DO with a diagnosis of DEHYDRATION. Chief complaint is SHORTNESS OF BREATH. Patient arrived via stretcher from ER. Monitor applied. Initial assessment completed. Vital signs taken and recorded. RAYNA BLANCA DO notified of admission to the unit. Orders received. See assessment for past medical history, medications and allergies. Patient and/or family oriented to unit. [facility]. Clothing/patient valuable form completed. HANY MARTINEZ
--- NOTE | 2020-03-05 01:09 | NUR ---
PATIENT DID NOT BRING MED LIST FROM HOME, AND DOES NOT KNOW HER MEDICATIONS
--- NOTE | 2020-03-05 01:39 | NUR ---
PATIENT REFUSING PICTURES OF LEFT GREAT TOE. DR CALLEJAS AT BEDSIDE. MEASUREMENTS TAKEN
--- NOTE | 2020-03-05 01:46 | NUR ---
MEDICATED WITH PRN TYLENOL FOR C/O RIGHT ANKLE PAIN. WILL MONITOR
[2020-03-05 06:32] LABS: BASO % 0.3 % (0.0-1.0); EOS # 0.1 10*3/uL (0.0-0.4); EOS % 0.8 % (1.0-4.0); HEMATOCRIT 39.1 % (37.0-47.0); LYMPH # 1.4 10*3/uL (1.3-4.4); LYMPH % 13.8 % (27.0-41.0); MEAN CELL VOLUME 90.5 fl (81.0-99.0); MEAN CORPUSCULAR HGB 29.2 pg (27.0-31.0); MEAN CORPUSCULAR HGB CONC 32.2 g/dl (33.0-37.0); MEAN PLATELET VOLUME 11.1 fl (9.6-12.3); MONO # 0.7 10*3/uL (0.1-1.0); NEUT # 7.9 10*3/uL (2.3-7.9); NEUT % 77.6 % (47.0-73.0); PLATELET COUNT AUTOMATED 244 10*3/uL (130-400); RED BLOOD COUNT 4.32 10*6/uL (4.10-5.10); RED CELL DISTRI WIDTH 15.1 % (0-14.5); WHITE BLOOD COUNT 10.2 10*3/uL (4.8-10.8)
[2020-03-05 06:58] LABS: BUN 13 mg/dl (7-24); CHLORIDE 107 mmol/L (98-107); CREATININE 0.61 mg/dL (0.55-1.02); POTASSIUM 3.3 mmol/L (3.5-5.1); SODIUM 136 mmol/L (136-145)
--- NOTE | 2020-03-05 07:00 | NUR ---
ARRIVED ON SHIFT, REPORT RECEIVED FROM OFFGOING NURSE, ASSUMED CARE OF PATIENT.
--- NOTE | 2020-03-05 07:30 | NUR ---
INTRODUCED SELF TO PATIENT, BED IN LOW POSITION, WHEEL LOCKS ENGAGED, SIDE RAILS UP X 2 FOR TURNING AND REPOSITIONING, BED ALARM ON, CALL LIGHT WITHING REACH, PATIENT REQUESTING TO GO HOME, AWARE OF REQUEST, NO OTHER NEEDS AT THIS TIME, WHITEB BOARD UPDATED.
--- NOTE | 2020-03-05 07:41 | NUR ---
Shift chart check completed.
--- NOTE | 2020-03-05 09:00 | NUR ---
Menagerie Superintendent in to talk to patient. Patient states lives at home with boyfriend. There are no steps in the home. Physician: ric colon [facility]: [facility] Home health services: none Patient's level of ADLs: INDEPENDENT Patient has working utilities: all working DME: rollator walker Follow-up physician's appointment after d/c: will be made by hospitalist nurse director upon discharge Does patient want to access PORTAL?: no Discharge plan discussed with patient, she states she lives in an apartment with her boyfriend, she is independent in adls and ambulation with a rollator walker, she stated she would return home and denies any home needs at this time, case management will follow. JUAN TURNER
--- NOTE | 2020-03-05 09:57 | NUR ---
PHYSICAL THERAPY Screen and PT orders received, will follow. Thank you. Douglas Dupont SPT Linda Mendosa PT
[2020-03-05 12:00] VITALS: BP 114/73
[2020-03-05] MEDS ORDERED: VITAMIN D325 MCG PO (15:54)
--- NOTE | 2020-03-05 16:17 | NUR ---
Discharge instructions reviewed with patient/family. Patient receptive and verbalizes understanding. Follow-up care arranged. Written instructions given to patient/family, IV REMOVED, TELEMETRY REMOVED AND PLACED IN RETURN BIN, TAKEN OUT VIA W/C BY HOSPITAL PA. BRAYDON CALABRESE
== END 2020-03-05 16:17 | disposition home or self-care (01) ==
LOC: ED 15:10 → EDHOLD 23:31 → 4E 03-05 00:18
PROVIDERS: Emergency Medicine; Student in an Organized Health Care Education/Training Program; ADMIT Internal Medicine; ATTEND Internal Medicine
DX: R53.1 Weakness (principal); E86.0 Dehydration; R65.10 Systemic inflammatory response syndrome (SIRS) of non-infectious origin without acute organ dysfunction; R00.0 Tachycardia, unspecified; R06.82 Tachypnea, not elsewhere classified; D72.829 Elevated white blood cell count, unspecified; K27.9 Peptic ulcer, site unspecified, unspecified as acute or chronic, without hemorrhage or perforation; J45.909 Unspecified asthma, uncomplicated; F41.1 Generalized anxiety disorder; F32.9 Major depressive disorder, single episode, unspecified; I10 Essential (primary) hypertension; E55.9 Vitamin D deficiency, unspecified; E44.1 Mild protein-calorie malnutrition; E66.01 Morbid (severe) obesity due to excess calories

== ENCOUNTER 2020-06-16 12:15 | Inpatient (IN) | payer OTHER ==
[~2020-06-16] VITALS: Ht 165.1 cm; Wt 77.1 kg
[~2020-06-16 12:15] MED LIST changes: +VITAMIN D325 MCG PO
[2020-06-16 12:25] VITALS: BP 11/78
[2020-06-16 13:28] LABS: BASO % 0.4 % (0.0-1.0); EOS # 0.1 10*3/uL (0.0-0.4); HEMATOCRIT 38.1 % (37.0-47.0); LYMPH # 0.8 10*3/uL (1.3-4.4); LYMPH % 8.4 % (27.0-41.0); MEAN CORPUSCULAR HGB 27.9 pg (27.0-31.0); MEAN CORPUSCULAR HGB CONC 32.8 g/dl (33.0-37.0); MEAN PLATELET VOLUME 11.8 fl (9.6-12.3); MONO # 0.8 10*3/uL (0.1-1.0); MONO % 8.2 % (3.0-9.0); NEUT % 81.7 % (47.0-73.0); PLATELET COUNT AUTOMATED 201 10*3/uL (130-400); RED BLOOD COUNT 4.48 10*6/uL (4.10-5.10); RED CELL DISTRI WIDTH 15.5 % (0-14.5); WHITE BLOOD COUNT 9.8 10*3/uL (4.8-10.8)
[2020-06-16 13:39] LABS: ACT PARTIAL THROMBO TIME 26.7 SECONDS (20.0-32.1); INTERNATIONAL NORM RATIO 1.1 (2.0-3.5)
[2020-06-16 13:42] LABS: ALBUMIN 2.6 gm/dl (3.1-4.5); ALKALINE PHOSPHATASE 63 U/L (45-117); BUN 14 mg/dl (7-24); CHLORIDE 100 mmol/L (98-107); CREATININE 1.06 mg/dL (0.55-1.02); LIPASE 468 U/L (73-393); SGOT/AST 21 IU/L (3-35); SGPT/ALT 8 U/L (12-78); SODIUM 138 mmol/L (136-145); TOTAL PROTEIN 5.8 gm/dL (6.4-8.2); TROPONIN I 0.015 ng/ml (<0.045)
[2020-06-16 13:50] LABS: POTASSIUM 2.1 mmol/L (3.5-5.1)
[2020-06-16 15:02] VITALS: BP 119/68
--- NOTE | 2020-06-16 15:51 | NUR ---
PT REFUSED TRAN AND STRAIGHT CATH.
--- NOTE | 2020-06-16 15:51 | NUR ---
ASSISTED PATIENT TO THE BATHROOM FOR A URINE. UNABLE TO PROVIDE URINE.
--- NOTE | 2020-06-16 18:40 | NUR ---
Time: 1849 A 50 year old FEMALE admitted to under services of EDUAR CASTILLO DO. [place]. Chief complaint: NAUSEA AND VOMITING. EDVIN MERINO
[2020-06-16 18:45] LABS: BUN 14 mg/dl (7-24); CHLORIDE 101 mmol/L (98-107); CREATININE 1.02 mg/dL (0.55-1.02); SODIUM 140 mmol/L (136-145)
[2020-06-16 18:50] LABS: POTASSIUM 2.2 mmol/L (3.5-5.1)
[2020-06-16 18:53] VITALS: BP 118/73
[2020-06-16] MEDS ORDERED: DORZOLAMIDE HYD10 ML OP (19:11)
[2020-06-16] MEDS ORDERED: BRIMONIDINE TART5 ML OPH (19:12)
[2020-06-16] MEDS ORDERED: LYRICA150 M1 PO (19:13)
[2020-06-17] VITALS: BP 105/70
[2020-06-17 00:52] LABS: BUN 12 mg/dl (7-24); CHLORIDE 105 mmol/L (98-107); CREATININE 0.94 mg/dL (0.55-1.02); SODIUM 142 mmol/L (136-145)
[2020-06-17 00:56] LABS: POTASSIUM 2.4 mmol/L (3.5-5.1)
--- NOTE | 2020-06-17 01:01 | NUR ---
NOTIFIED DR. HUGHES PATIENTS POTASSIUM IS NOW 2.4. SEE NEW ORDERS.
--- NOTE | 2020-06-17 01:41 | NUR ---
PATIENT REFUSING TO TAKE PO POTASSIUM, STATES SHE CANT SWALLOW THOSE AND HER STOMACH CANNOT HANDLE THOSE PILLS RIGHT NOW. NOTIFIED DR. HUGHES. WILL CONTINUE TO MONITOR.
--- NOTE | 2020-06-17 03:59 | NUR ---
PATIENT STILL REFUSING TO TAKE POTASSIUM PILLS. THIS NURSE OFFERED TO PUT PILLS IN APPLESAUCE OR CUT IN HALF. PATIENT REFUSING. EXPLAINED TO HER THE IMPORTANCE OF THESE PILLS. PATIENT STILL REFUSING. WILL CONTINUE TO MONITOR.
--- NOTE | 2020-06-17 05:50 | NUR ---
PATIENT DID NOT VOID ENTIRE SHIFT. BLADDER SCANNED AT THIS TIME FOR 455CC. PATIENT A MAX ASSIST TO BEDSIDE COMMODE. PATIENT VOIDED 350CC OF DARK COLORED URINE. PATIENT VERY WEAK AND UMABLE TO HELP SELF. NOTIFIED DR. HUGHES. PT/OT CONSULT PLACED.
[2020-06-17 06:25] LABS: BILIRUBIN Negative (Negative); BLOOD Negative (Negative); CLARITY Cloudy (Clear); COLOR Yellow (Yellow); GLUCOSE Negative (Negative); KETONE Trace (Negative); LEUKO ESTERASE 1+ (Negative); NITRITE Negative (Negative); PH 5.5 (4.5-8.0); SPECIFIC GRAVITY >= 1.030 (1.001-1.030)
[2020-06-17 06:36] LABS: BACTERIA 3+; CALCIUM OXALATE CRYSTALS 3+
[2020-06-17 08:00] VITALS: BP 132/76
[2020-06-17 08:10] LABS: ALBUMIN 2.5 gm/dl (3.1-4.5); ALKALINE PHOSPHATASE 57 U/L (45-117); BUN 12 mg/dl (7-24); CHLORIDE 105 mmol/L (98-107); CREATININE 1.06 mg/dL (0.55-1.02); POTASSIUM 2.6 mmol/L (3.5-5.1); SGOT/AST 19 IU/L (3-35); SGPT/ALT 11 U/L (12-78); SODIUM 141 mmol/L (136-145); TOTAL PROTEIN 5.5 gm/dL (6.4-8.2)
[2020-06-17 08:16] LABS: FREE T4 1.27 ng/dl (0.76-1.46)
--- NOTE | 2020-06-17 10:12 | NUR ---
PHYSICAL THERAPY Physical Therapy evaluation completed. Full details and evaluation to follow. Moderate complexity skilled PT evaluation performed (74906). PT to work on strength, transfers, bed mobility, gait, baalnce, safety and AD usage per POC. Recommend SNF at discharge.
[2020-06-17 10:41] LABS: VITAMIN D, 25-HYDROXY 41.3 ng/mL (30-100)
--- NOTE | 2020-06-17 10:44 | NUR ---
Occupational Therapy evaluation completed on 5th floor with full evaluation to follow. Recommend occupational therapy per plan of care and SNF upon discharge. Thank you for this referral.
--- NOTE | 2020-06-17 11:05 | NUR ---
DR FUENTES NOTIFIED OF CONSULT
[2020-06-17 12:00] VITALS: BP 134/88
--- NOTE | 2020-06-17 14:11 | NUR ---
POLICY WRITER-S in to talk to patient. Patient states lives at home with her boyfriend and his brother. There are 0 steps in the home. Physician: Alberto Cordero [facility]acy: [facility] Home health services: no Patient's level of ADLs: MINIMAL ASSIST Patient has working utilities: yes DME: electric wheelchair, walker Follow-up physician's appointment after d/c: Will need scheduled Does patient want to access PORTAL?: yes Discharge plan Pt resides at home with her boyfriend and his brother. Pt states that she has a ramp into her home. Pt originally stated that she wanted to return home with HH. Spoke with pt again and she is now agreeable to a SNF. Pt is lower functioning and this POLICY WRITER-S explained fully what a SNF is. Pt voiced understanding and stated that she would discharge to a SNF as long as it was covered by her insurance. Pt does not have a preference in SNFs but would like to be close to or in [place]. MOMO ARGUETA
--- NOTE | 2020-06-17 15:20 | NUR ---
OT NOTE Nursing screen received. Patient was evaluated this date and is on OT caseload. Will continue with POC as able. Thank you. Abigail Sultana, OTR/L
--- NOTE | 2020-06-17 15:22 | NUR ---
PHYSICAL THERAPY Nursing screened reviewed. Order has been completed and patient is on PT caseload. Thanks Nikki Montes PT DPT
[2020-06-17 16:00] VITALS: BP 125/74
[2020-06-17 20:00] VITALS: BP 120/72
--- NOTE | 2020-06-17 22:10 | NUR ---
PATIENT VOMITTING. MEDICATED WITH IV ZOFRAN. PATIENT WASHED UP AT THIS TIME. WILL CONTINUE TO MONITOR.
[2020-06-18] VITALS (8 sets, daily range): BP systolic 94–134; BP diastolic 50–80
--- NOTE | 2020-06-18 | NUR ---
PATIENT RESTING IN BED. VOICES NO COMPLAINTS/NEEDS AT THIS TIME. RESPIRATIONS EASY, NON LABORED. REMINDED PATIENT SHE IS NPO FOR EGD IN THE MORNING. BED IN LOWEST POSITION,CALL LIGHT WITHIN REACH. WILL CONTINUE TO MONITOR.
--- NOTE | 2020-06-18 06:38 | NUR ---
PATIENT OFF FLOOR FOR SURGERY AT THIS TIME.
[2020-06-18 07:08] LABS: ALBUMIN 2.2 gm/dl (3.1-4.5); ALKALINE PHOSPHATASE 55 U/L (45-117); BUN 10 mg/dl (7-24); CHLORIDE 111 mmol/L (98-107); CREATININE 0.94 mg/dL (0.55-1.02); LIPASE 536 U/L (73-393); POTASSIUM 3.2 mmol/L (3.5-5.1); SGOT/AST 16 IU/L (3-35); SGPT/ALT 11 U/L (12-78); SODIUM 143 mmol/L (136-145); TOTAL PROTEIN 4.9 gm/dL (6.4-8.2)
--- NOTE | 2020-06-18 07:48 | NUR ---
OT NOTE Attempted to see pt this A.M. for OT session and upon arrival pt was out of the room for surgery. Will check back at a later time and continue with POC as able. NICOLASA Liang/Alek
--- NOTE | 2020-06-18 08:12 | NUR ---
REPORT CALLED FROM SURGERY.
[2020-06-18 08:28] LABS: CHOLESTEROL 102 mg/dL (<200); HDL CHOLESTEROL 38 mg/dl (40-60); LDL CHOLESTEROL 47 mg/dL (9-159); TRIGLYCERIDES 87 mg/dl (<150); VLDL CHOLESTEROL 17 mg/dL (6-40)
--- NOTE | 2020-06-18 08:30 | NUR ---
PER INTERVENTION ANALYST NOTE PATIENT DOES NOT HAVE A PREFERENCE FOR SNF PLACEMENT. KNIFE BLADE POLISHER FAXED REFERRAL TO [facility] FOR REVIEW.
--- NOTE | 2020-06-18 09:07 | NUR ---
COMPUTER NUMERIC CONTROL SETTER SPOKE WITH THIS PATIENT VIA PHONE CALL. COMPUTER NUMERIC CONTROL SETTER ASKED IF PATIENT WAS OKAY WITH REFERRAL TO [facility]. PATIENT WAS AGREEABLE. PATIENT THEN ASKED IF SHE COULD GO HOME BEFORE GOING TO [facility] COMPUTER NUMERIC CONTROL SETTER EXPLAINED NO. COMPUTER NUMERIC CONTROL SETTER EXPLAINED WOULD HAVE TO ADMIT STRAIGHT FROM THIS FACILITY. PATIENT STATED SHE WANTED TO BE HOME FOR THE HOLIDAY AND WOULD LIKE TO GO HOME WITH HOME HEALTH. COMPUTER NUMERIC CONTROL SETTER EXPLAINED THAT WOULD BE A POSSIBLITY. PATIENT AGREED TO SEE IF SHE IMPROVES WITH THERAPY WHILE SHE IS HERE BEFORE MAKING A FINAL DECISION ABOUT SNF VS HH.
--- NOTE | 2020-06-18 09:30 | NUR ---
OT NOTE Pt was seen this A.M. 1:1 for 20 minute OT session. Upon arrival pt was supine in bed. Pt identified by name and and had no complaints at this time. Pt transferred supine to sit EOB with Obdulio for assist with upper body. While sitting EOB pt completed grooming task of washing her hands, face, and completing hair care with Obdulio for set up and finding items due to vision deficit. Pt then completed multiple sit to stand transfers from elevated bed level with modA X 2 and use of w/w for UE support. Challenged pt's static standing tolerance needed for increased I in self care tasks and functional transfers. Pt was able to tolerate aprox 10-20 seconds at a time before sitting due to fatigue. Pt transferred back into bed sit to supine with maxA X 2. There she was left with call light in hand, tray table in place, and bed alarm activated for safety. COntinue with rec D/C plan to SNF. KOFI Liang
--- NOTE | 2020-06-18 10:13 | NUR ---
PHYSICAL THERAPY Patient presented to therapy in supine with head of bed nearly flat and bed alarm on. Patient gives informed consent for treatment. Patient was identified by name and on wristband. Patient reports pain in the abdominal area that she thinks is gas. Patient performed supine > sitting on EOB with MIN A X 2. Patient sat on EOB with SBA. Patient completed STS from EOB with MAX A X 2 with verbal cues for proper hand placement and technique. Patient was able tp stand 2 seperate times at EOB with MOD A X 2 to stand each time with bed raised and one time with MAX A X 2 with bed in low position. Patient stood for 10 sec the 1 st attempt and 20 sec the 2 nd and 3rd attempt. Patient required CGA while standing. Patient performed seated diane LE ther ex 2 x 10 reps each for strengthening the LEs including LAQs, marches and HEEL/ TOE raises. Patient moved back to supine in bed with MOD A X 2. Patient was left in supine in bed with head of bed elevated, call ligth within reach and bed alarm on. Patient was 1:1 with this B2B ACCOUNT EXECUTIVE for 20 minutes total. NICOLASA Montiel was present as witness to this treatment. DYLON LEMUS B2B ACCOUNT EXECUTIVE DYLON LEMUS B2B ACCOUNT EXECUTIVE
--- NOTE | 2020-06-18 14:31 | NUR ---
[facility] REQUESTED RN NOTES. PROJECT ENGINEERING DIRECTOR FAXED RN NOTES OVER TO HER.
--- NOTE | 2020-06-18 16:34 | NUR ---
PHYSICAL THERAPY CO-SIGN I approve of the Physical Therapy notes written above. ELY SUAREZ PT,DPT
--- NOTE | 2020-06-18 21:30 | NUR ---
PATIENT TOOK NIGHT TIMES MEDS WITHOUT ISSUE WITH APPLESAUCE. PATIENT DENIES N/V AND ABDOMINAL PAIN AT THIS TIME, JUST STATES SHE WOULD LIKE HER ICED TEA. IV FLUIDS INFUSING. PATIENT REFUSED NIGHT TIME EYE DROPS. STATED THAT SHE USED TO USE THOSE BEFORE BUT DOESN'T ANYMORE. CALL LIGHT WTIHIN REACH, WILL MONITOR
--- NOTE | 2020-06-18 22:10 | NUR ---
24 HR chart check completed.
--- NOTE | 2020-06-18 22:36 | NUR ---
SPOKE WITH DR. HUGHES AT THIS TIME. NOTIFIED HIM THAT THE PATIENT STATED THAT HER HEELS ARE STARTING TO BURN AND ASKED IF WE COULD ORDER HEEL PROTECTORS. HE STATED THIS WAS OK
--- NOTE | 2020-06-18 22:44 | NUR ---
PATIENT ONLY REQUESTED TO WEAR ONE HEEL PROTECTOR BOOT AT THIS TIME
--- NOTE | 2020-06-18 23:37 | NUR ---
PRN ZOFRAN GIVEN FOR PT COMPLAINTS OF NAUSEA AND VOMITING UP CLEAR LIQUID. EXPLAINED TO PATIENT THAT WHEN SHE DRINKS SHE NEEDS TO SLOW DOWN AND SIP. ESPECIALLY WITH DEIRDRE DAGOBERTO. PATIENT VERBALIZED UNDERSTANDING.
[2020-06-19] VITALS: BP 123/66
--- NOTE | 2020-06-19 00:24 | NUR ---
PRN ZOFRAN APPEARS EFFECTIVE, PT SLEEPING
--- NOTE | 2020-06-19 05:29 | NUR ---
PATIENT AT THIS TIME REFUSED MORNING PILLS. EXPLAINED TO PATIENT THE IMPORTANCE OF AT LEAST TAKING THE PROTONIX IT WILL HELP HER STOMACH. PATIENT AGREED TO TAKE PROTONIX BUT REFUSED HER GABAPENTIN.
[2020-06-19 07:06] LABS: BASO % 0.4 % (0.0-1.0); EOS # 0.2 10*3/uL (0.0-0.4); EOS % 1.6 % (1.0-4.0); HEMATOCRIT 34.3 % (37.0-47.0); LYMPH # 0.9 10*3/uL (1.3-4.4); LYMPH % 8.5 % (27.0-41.0); MEAN CELL VOLUME 88.9 fl (81.0-99.0); MEAN CORPUSCULAR HGB 28.2 pg (27.0-31.0); MEAN CORPUSCULAR HGB CONC 31.8 g/dl (33.0-37.0); MEAN PLATELET VOLUME 11.5 fl (9.6-12.3); MONO # 0.5 10*3/uL (0.1-1.0); MONO % 5.1 % (3.0-9.0); NEUT # 8.6 10*3/uL (2.3-7.9); NEUT % 83.9 % (47.0-73.0); PLATELET COUNT AUTOMATED 185 10*3/uL (130-400); RED BLOOD COUNT 3.86 10*6/uL (4.10-5.10); RED CELL DISTRI WIDTH 16.5 % (0-14.5); WHITE BLOOD COUNT 10.3 10*3/uL (4.8-10.8)
[2020-06-19 07:29] LABS: BUN 8 mg/dl (7-24); CHLORIDE 112 mmol/L (98-107); CREATININE 1.01 mg/dL (0.55-1.02); LIPASE 654 U/L (73-393); POTASSIUM 3.4 mmol/L (3.5-5.1); SODIUM 142 mmol/L (136-145)
[2020-06-19 08:00] VITALS: BP 119/79
--- NOTE | 2020-06-19 08:45 | NUR ---
OT NOTE Pt was seen this A.M. 1:1 for 15 minute OT session. Upon arrival pt was supine in bed. Pt identified by name and and had complaints of 3/10 R hip pain. Pt transferred supine to sit EOB with Obdulio for assist with RLE and upper body. While sitting EOB pt completed hair care with SBA. Pt completed one sit to stand from elevated bed level with Obdulio X 2 and use of w/w for UE support. Challenged pt's static standing tolerance needed for increased I in self care tasks and functional transfers. Pt was able to tolerate aprox 60 seconds before sitting due to fatigue. Throughout pt required verbal prompts to correct posture and hold her head up. Pt then requested to lay back into bed. Pt transferred sit to supine with Obdulio for assist with RLE. Pt was left supine in bed with call light in hand, tray table in place, and bed alarm activated for safety. Continue with rec D/C plan to SNF. KOFI Liang
--- NOTE | 2020-06-19 09:52 | NUR ---
PATIENTS COVID IS NEGATIVE. SHERIFF OFFICER FAXED UPDATES TO [facility] FOR REVIEW.
--- NOTE | 2020-06-19 10:48 | NUR ---
PHYSICAL THERAPY Patient presented to therapy in supine in bed with head of bed slightly elevated and bed alarm on. Patient reports a 3/10 pain level in the R hip and R LE. Patient gives informed consent for treatment. Patient was identified by name and on wristband. Patient performed supine > sitting on EOB with MIN A X 1. Patient sat on EOB with SBA. Patient performed STS from EOB with MIN A X 2. Patient required verbal cues for pushing off the bed with hands and upright posture upon standing. Patient stood at Walker with CGA - SBA for 1 minute the first attempt. Patient sat back down on EOB with SBA AND VERBAL CUES for putting hands back on bed. Patient completed STS again from sitting on EOB with MIN A X 2. Patient stood at Walker for the 2 nd attempt for 30 seconds with CGA - SBA. Patient completed sitting on EOB to supine in bed with MIN A X 2. Patient was moved up to head of bed with bedsheet with MAX A X 2. Patient was left in supine in bed with head of bed elevated and bed alarm on. Patient tray table near patient and call light within reach. Patient was 1:1 with this SWINE EXTENSION FIELD SPECIALIST for 19 minutes total. NICOLASA Mckeon was present as witness to this patient. DYLON LEMUS SWINE EXTENSION FIELD SPECIALIST
--- NOTE | 2020-06-19 11:30 | NUR ---
IV started left antecubital with #22 protective cath after 0 attempts. Site prepped with Chloroprep. Sterile dressing applied. Patient tolerated procedure well. IV infusing at 100 cc/hr. CARSON DICKENS
--- NOTE | 2020-06-19 11:58 | NUR ---
DR FUENTES ON FLOOR TO SEE PATIENT AND STATES THAT HE PLANS FOR PT TO GO TO SURGERY TOMORROW FOR CHOLECYSTECTOMY.
[2020-06-19 12:00] VITALS: BP 120/74
--- NOTE | 2020-06-19 13:05 | NUR ---
CUT OFF SAWYER IN TO SEE THIS PATIENT. PATIENT WOULD NOT OPEN HER EYES DURING OUR CONVERSATION. CUT OFF SAWYER EXPLAINED THE NEED FOR SNF. PATIENT WAS AGREEABLE TO GO TO [facility] BUT ALSO STATED SHE WOULD LIKE TO GO HOME. CUT OFF SAWYER EXPLAINED THAT SHE COULD POSSIBLY GET A DAY PASS FOR THE HOLIDAY PATIENT WAS AGREEABLE, HOWEVER SHE STILL EXPRESSED SHE WANTED TO GO HOME. FOOT CUTTER JUAN IS AWARE.
--- NOTE | 2020-06-19 13:34 | NUR ---
Hep Lock discontinued. Site asymptomatic. Pressure applied. Sterile dressing applied. CARSON DICKENS
--- NOTE | 2020-06-19 14:37 | NUR ---
ALICIA CONTACTED PATIENTS BOYFRIEND ELVIA JACKSON [phone]. HE EXPRESSED CONCERNS FOR THE PATIENT GOING TO [facility]. ALICIA EXPLAINED THAT THIS PATIENTS DOCTOR WOULD BE ABLE TO FOLLOW HER AT [facility]. HE UNDERSTOOD. HE STATED HE WOULD TALK TO THE PATIENT. ALICIA EXPLAINED PATIENT WOULD LIKELY BE DISCHARGED TOMORROW. HE UNDERSTOOD.
--- NOTE | 2020-06-19 15:28 | NUR ---
PT GIVEN ZOFRAN VIA IVP FOR C/O NAUSEA AND VOMITING. WILL MONITOR FOR EFFECTIVENESS. CALL LIGHT IN REACH.
[2020-06-19 16:00] VITALS: BP 152/68
--- NOTE | 2020-06-19 16:28 | NUR ---
PT STATES THAT ZOFRAN IS EFFECTIVE.
--- NOTE | 2020-06-19 17:02 | NUR ---
NOTIFIED DR RAMESH THAT PT HAS CRITICAL LAB OF ANAEROBIC BLOOD CULTURES GRAM NEGATIVE BACILLI.
--- NOTE | 2020-06-19 18:15 | NUR ---
CONSULT CALLED TO DR ALCALA ANSWERING SERVICE.
[2020-06-19 20:00] VITALS: BP 114/74
--- NOTE | 2020-06-19 20:20 | NUR ---
PATIENT AT THIS TIME REFUSED ALL NIGHT TIME MEDICATIONS. SHE STATED THAT SHE WAS TOO TIRED TO TAKE THEM AND THEY MAKE HER MORE TIRED. CALL LIGHT WITHIN REACH, WILL MONITOR
--- NOTE | 2020-06-19 23:00 | NUR ---
TYLENOL EFFECTIVE PER PT.
[2020-06-20] VITALS (10 sets, daily range): BP systolic 109–133; BP diastolic 56–92
--- NOTE | 2020-06-20 02:39 | NUR ---
PATIENT SLEEPING, NO DISTRESS NOTED. BREATHING IS EASY AND REGULAR. IV FLUIDS INFUSING PER ORDER. CALL LIGHT WITHIN REACH, WILL MONITOR
[2020-06-20 06:58] LABS: ALBUMIN 2.1 gm/dl (3.1-4.5); ALKALINE PHOSPHATASE 61 U/L (45-117); BUN 8 mg/dl (7-24); CHLORIDE 114 mmol/L (98-107); CREATININE 1.03 mg/dL (0.55-1.02); LIPASE 674 U/L (73-393); SGOT/AST 19 IU/L (3-35); SGPT/ALT 15 U/L (12-78); SODIUM 141 mmol/L (136-145); TOTAL PROTEIN 4.7 gm/dL (6.4-8.2)
--- NOTE | 2020-06-20 08:09 | NUR ---
[employer] AND [employer] PARALEGAL FAXED UPDATES TO [facility] FOR REVIEW.
--- NOTE | 2020-06-20 08:41 | NUR ---
OT NOTE Attempted to see pt this A.M. for OT session and upon arrival pt was out of the room for surgery. Will check back at a later time/date and continue with POC as able. NICOLASA Liang/Alek
--- NOTE | 2020-06-20 10:35 | NUR ---
BRIDGE MANAGER IN TO SEE PATIENT AT BEDSIDE. BRIDGE MANAGER SPOKE TO THE PATIENT ABOUT GOING TO [facility] TODAY. PATIENT STATED SHE WOULD GO TO [facility] LONG SHE HAD A PHONE THERE. BRIDGE MANAGER EXPLAINED WE WOULD TRY TO GET HER THERE TODAY. SHE WAS AGREEABLE. BRIDGE MANAGER NOTIFIED RN HOSPITALIST COORDINATOR PATO OF PATIENT BEING AGREEABLE TO [facility].
--- NOTE | 2020-06-20 13:42 | NUR ---
OT NOTE Attempted to see pt this P.M. for OT session and upon arrival pt was supine in bed. Pt declined therapy at this time stating "I am tured from my surgery this morning and not feeling up to it." With all tasks presented pt continued to decline. Will check back at a later time/date and continue with POC as able. NICOLASA Liang/Alek
--- NOTE | 2020-06-20 14:22 | NUR ---
PHYSICAL THERAPY Patient was approached for therapy session at 1330 and patient declined treatment because she wasn't feeling good having just come back from a surgical procedure. Will check back with patient at a later date. DYLON LEMUS PETROLEUM SAMPLER
--- NOTE | 2020-06-20 14:29 | NUR ---
OCCUPATIONAL THERAPY CO-SIGN I approve of the Occupational Therapy notes written above. KRISSY STILL, OTR/L
--- NOTE | 2020-06-20 14:38 | NUR ---
CADMIUM LIQUOR MAKER FAXED UPDATES TO [facility].
--- NOTE | 2020-06-20 14:40 | NUR ---
PHYSICAL THERAPY CO-SIGN I approve of the Physical Therapy notes written above. ELY SUAREZ PT,DPT
--- NOTE | 2020-06-20 19:45 | NUR ---
TOOK OVER CARE OF PT AT THIS TIME. PT RESTING IN BED. RESPIRATIONS EASY AND UNLABORED ON ROOM AIR. NO DISTRESS NOTED. NO COMPLAINTS ARE VOICED. LAPAROSCOPIC SITES TO ABDOMEN IN TACT. IV FLUIDS INFUSING. CALL LIGHT IN REACH.
--- NOTE | 2020-06-20 22:00 | NUR ---
PT GIVEN TYLENOL 650 MG PO FOR C/O PAIN TO ABDOMEN. WILL MONITOR FOR EFFECTIVENESS. PT REFUSES ALL OTHER HS MEDS AT THIS TIME. ATTEMPTS X 3 MADE, INEFFECTIVE. WILL CONTINUE TO MONITOR.
[2020-06-21] VITALS: BP 139/87
[2020-06-21 06:34] LABS: BASO % 0.1 % (0.0-1.0); EOS % 0.1 % (1.0-4.0); HEMATOCRIT 31.2 % (37.0-47.0); LYMPH # 0.9 10*3/uL (1.3-4.4); LYMPH % 8.4 % (27.0-41.0); MEAN CELL VOLUME 88.6 fl (81.0-99.0); MEAN CORPUSCULAR HGB 28.4 pg (27.0-31.0); MEAN CORPUSCULAR HGB CONC 32.1 g/dl (33.0-37.0); MONO # 0.6 10*3/uL (0.1-1.0); MONO % 5.8 % (3.0-9.0); NEUT # 9.1 10*3/uL (2.3-7.9); NEUT % 84.9 % (47.0-73.0); PLATELET COUNT AUTOMATED 191 10*3/uL (130-400); RED BLOOD COUNT 3.52 10*6/uL (4.10-5.10); RED CELL DISTRI WIDTH 16.6 % (0-14.5); WHITE BLOOD COUNT 10.8 10*3/uL (4.8-10.8)
[2020-06-21 06:37] LABS: BUN 11 mg/dl (7-24); CHLORIDE 113 mmol/L (98-107); CREATININE 1.07 mg/dL (0.55-1.02); POTASSIUM 3.5 mmol/L (3.5-5.1); SODIUM 139 mmol/L (136-145)
[2020-06-21 08:00] VITALS: BP 110/75
[2020-06-21 12:00] VITALS: BP 105/70
--- NOTE | 2020-06-21 18:54 | NUR ---
Discharge instructions reviewed with patient/family. Patient receptive and verbalizes understanding. Follow-up care arranged. Written instructions given to patient/family. RADHA HAM
--- NOTE | 2020-06-23 11:38 | NUR ---
DRAWSTRING KNOTTER RECEIVED CALL FROM PATIENTS BOYFRIEND ABOUT WANTING HOME HEALTH. DRAWSTRING KNOTTER EXPLAINED PATIENTS DISCHARGE PLAN WAS TO GO TO [facility], DRAWSTRING KNOTTER EXPLAINED TO HIM THIS DRAWSTRING KNOTTER WOULD OBTAIN A HOME HEALTH ORDER. HE STATED HE DID NOT HAVE A PREFERENCE. DRAWSTRING KNOTTER CONTACTED RN HOSPITALIST COORDINATOR PATO. DRAWSTRING KNOTTER OBTAINED A HOME HEALTH ORDER, WILL NEED FACE TO FACE. DRAWSTRING KNOTTER FAXED REFERRAL TO [facility].
== END 2020-06-21 17:36 | disposition home health service (06) | DRG 263 ==
LOC: ED 12:15 → EDHOLD 16:52 → 5E 16:52 → EDHOLD 17:11 → 5E 17:48
PROVIDERS: Emergency Medicine; Internal Medicine; Surgery; ADMIT Family Medicine; ATTEND Family Medicine
PROC: 0DB68ZX Excision of Stomach, Via Natural or Artificial Opening Endoscopic, Diagnostic (ICD-10-PCS; principal; 2020-06-18)
PROC: 0FT44ZZ Resection of Gallbladder, Percutaneous Endoscopic Approach (ICD-10-PCS; 2020-06-20)
PROC: BF121ZZ Fluoroscopy of Gallbladder using Low Osmolar Contrast (ICD-10-PCS; 2020-06-20)
DX: K85.10 Biliary acute pancreatitis without necrosis or infection (principal); K52.9 Noninfective gastroenteritis and colitis, unspecified; K29.70 Gastritis, unspecified, without bleeding; E86.0 Dehydration; N17.0 Acute kidney failure with tubular necrosis; E87.6 Hypokalemia; J45.909 Unspecified asthma, uncomplicated; E44.0 Moderate protein-calorie malnutrition; F32.9 Major depressive disorder, single episode, unspecified; G62.9 Polyneuropathy, unspecified; F41.1 Generalized anxiety disorder; I10 Essential (primary) hypertension; E55.9 Vitamin D deficiency, unspecified; H54.62 Unqualified visual loss, left eye, normal vision right eye; H54.61 Unqualified visual loss, right eye, normal vision left eye; R63.4 Abnormal weight loss; K80.20 Calculus of gallbladder without cholecystitis without obstruction; Z20.828 Contact with and (suspected) exposure to other viral communicable diseases; Z88.6 Allergy status to analgesic agent; Z88.0 Allergy status to penicillin; Z82.49 Family history of ischemic heart disease and other diseases of the circulatory system; Z81.8 Family history of other mental and behavioral disorders; Z86.73 Personal history of transient ischemic attack (TIA), and cerebral infarction without residual deficits; Z93.1 Gastrostomy status; Z68.28 Body mass index [BMI] 28.0-28.9, adult

== ENCOUNTER 2020-07-22 10:30 | Inpatient (IN) | payer OTHER ==
[2020-07-22] VITALS (12 sets, daily range): BP systolic 100–140; BP diastolic 60–97
[~2020-07-22] VITALS: Ht 177.8 cm; Wt 69.5 kg
[~2020-07-22 10:30] MED LIST changes: +BRIMONIDINE TART5 ML OPH; +DORZOLAMIDE HYD10 ML OP; -Oscal,Oyster S500 MG PO
[2020-07-22 11:02] LABS: BASO % 0.2 % (0.0-1.0); EOS # 0.1 10*3/uL (0.0-0.4); EOS % 0.4 % (1.0-4.0); HEMATOCRIT 28.3 % (37.0-47.0); LYMPH # 1.5 10*3/uL (1.3-4.4); LYMPH % 12.4 % (27.0-41.0); MEAN CELL VOLUME 83.5 fl (81.0-99.0); MEAN CORPUSCULAR HGB 27.4 pg (27.0-31.0); MEAN CORPUSCULAR HGB CONC 32.9 g/dl (33.0-37.0); MEAN PLATELET VOLUME 11.3 fl (9.6-12.3); MONO # 0.7 10*3/uL (0.1-1.0); MONO % 5.7 % (3.0-9.0); NEUT # 9.5 10*3/uL (2.3-7.9); NEUT % 80.1 % (47.0-73.0); PLATELET COUNT AUTOMATED 322 10*3/uL (130-400); RED BLOOD COUNT 3.39 10*6/uL (4.10-5.10); RED CELL DISTRI WIDTH 15.7 % (0-14.5); WHITE BLOOD COUNT 11.9 10*3/uL (4.8-10.8)
[2020-07-22 11:17] LABS: ALBUMIN 2.7 gm/dl (3.1-4.5); ALKALINE PHOSPHATASE 72 U/L (45-117); BUN 15 mg/dl (7-24); CHLORIDE 99 mmol/L (98-107); CREATININE 0.86 mg/dL (0.55-1.02); LIPASE 511 U/L (73-393); SGOT/AST 12 IU/L (3-35); SGPT/ALT 8 U/L (12-78); SODIUM 138 mmol/L (136-145); TOTAL PROTEIN 6.2 gm/dL (6.4-8.2); TROPONIN I 0.019 ng/ml (<0.045)
[2020-07-22 11:33] LABS: POTASSIUM 2.2 mmol/L (3.5-5.1)
[2020-07-23] VITALS (7 sets, daily range): BP systolic 117–141; BP diastolic 74–90
[2020-07-23 07:42] LABS: ALBUMIN 2.6 gm/dl (3.1-4.5); BUN 15 mg/dl (7-24); CHLORIDE 108 mmol/L (98-107); SODIUM 140 mmol/L (136-145)
[2020-07-23 07:51] LABS: ALKALINE PHOSPHATASE 68 U/L (45-117); CREATININE 0.75 mg/dL (0.55-1.02); FREE T4 0.97 ng/dl (0.76-1.46); HEMATOCRIT 26.4 % (37.0-47.0); MEAN CORPUSCULAR HGB 27.6 pg (27.0-31.0); MEAN CORPUSCULAR HGB CONC 31.4 g/dl (33.0-37.0); MEAN PLATELET VOLUME 11.6 fl (9.6-12.3); PLATELET COUNT AUTOMATED 363 10*3/uL (130-400); RED BLOOD COUNT 3.01 10*6/uL (4.10-5.10); RED CELL DISTRI WIDTH 16.3 % (0-14.5); SGOT/AST 13 IU/L (3-35); SGPT/ALT 11 U/L (12-78); TOTAL PROTEIN 5.7 gm/dL (6.4-8.2); WHITE BLOOD COUNT 15.1 10*3/uL (4.8-10.8)
[2020-07-23 07:52] LABS: MEAN CELL VOLUME 87.7 fl (81.0-99.0)
[2020-07-23 07:53] LABS: POTASSIUM 3.7 mmol/L (3.5-5.1)
[2020-07-23 07:58] LABS: TOTAL CELLS COUNTED 100 #CELLS
[2020-07-23 07:59] LABS: BURR CELLS FEW; OVALOCYTES FEW; PLATELET SUFFICIENCY NORMAL (NORMAL); SCHISTOCYTES FEW
[2020-07-23] MEDS ORDERED: CHOLESTYRAMINE P4 GM PO (11:34)
[2020-07-23] MEDS ORDERED: VITAMIN D3125 MCG PO (11:34)
[2020-07-23 14:00] LABS: BILIRUBIN Negative (Negative); BLOOD Negative (Negative); CLARITY Clear (Clear); COLOR Yellow (Yellow); GLUCOSE Negative (Negative); KETONE 1+ (Negative); LEUKO ESTERASE Negative (Negative); NITRITE Negative (Negative); PH 7.5 (4.5-8.0); SPECIFIC GRAVITY >= 1.030 (1.001-1.030)
[2020-07-23 14:23] LABS: BACTERIA TRACE; EPITHELIAL CELLS 16-20
[2020-07-24] VITALS: BP 133/92
[2020-07-24 06:30] VITALS: BP 107/75
[2020-07-24 09:12] LABS: MEAN CELL VOLUME 87.2 fl (81.0-99.0); MEAN CORPUSCULAR HGB 27.7 pg (27.0-31.0); MEAN CORPUSCULAR HGB CONC 31.8 g/dl (33.0-37.0); MEAN PLATELET VOLUME 11.3 fl (9.6-12.3); PLATELET COUNT AUTOMATED 314 10*3/uL (130-400); RED BLOOD COUNT 3.21 10*6/uL (4.10-5.10); RED CELL DISTRI WIDTH 16.7 % (0-14.5); WHITE BLOOD COUNT 27.7 10*3/uL (4.8-10.8)
[2020-07-24 09:29] LABS: PLATELET SUFFICIENCY NORMAL (NORMAL); POLYCHROMASIA SLIGHT; SCHISTOCYTES FEW; TOTAL CELLS COUNTED 100 #CELLS
[2020-07-24 09:34] LABS: BUN 18 mg/dl (7-24); CHLORIDE 113 mmol/L (98-107); CREATININE 0.73 mg/dL (0.55-1.02); POTASSIUM 3.7 mmol/L (3.5-5.1); SODIUM 144 mmol/L (136-145)
[2020-07-24 12:00] VITALS: BP 98/50
[2020-07-24 16:00] VITALS: BP 100/56
[2020-07-24 20:00] VITALS: BP 101/54
[2020-07-24 22:35] VITALS: BP 136/60
[2020-07-25] VITALS (7 sets, daily range): BP systolic 80–117; BP diastolic 52–73
[2020-07-25 00:40] LABS: ACT PARTIAL THROMBO TIME 30.2 SECONDS (20.0-32.1); INTERNATIONAL NORM RATIO 1.3 (2.0-3.5)
[2020-07-25 07:04] LABS: CREATININE 1.32 mg/dL (0.55-1.02); POTASSIUM 3.8 mmol/L (3.5-5.1)
[2020-07-25 07:10] LABS: BASO % 0.1 % (0.0-1.0); EOS % 0.1 % (1.0-4.0); LYMPH # 1.4 10*3/uL (1.3-4.4); LYMPH % 7.3 % (27.0-41.0); MEAN CORPUSCULAR HGB 27.3 pg (27.0-31.0); MEAN CORPUSCULAR HGB CONC 29.6 g/dl (33.0-37.0); MEAN PLATELET VOLUME 11.6 fl (9.6-12.3); MONO # 0.4 10*3/uL (0.1-1.0); MONO % 2.2 % (3.0-9.0); NEUT # 17.3 10*3/uL (2.3-7.9); NEUT % 89.4 % (47.0-73.0); RED BLOOD COUNT 2.71 10*6/uL (4.10-5.10); RED CELL DISTRI WIDTH 17.2 % (0-14.5); WHITE BLOOD COUNT 19.3 10*3/uL (4.8-10.8)
[2020-07-25 07:12] LABS: MEAN CELL VOLUME 92.3 fl (81.0-99.0); PLATELET COUNT AUTOMATED 203 10*3/uL (130-400)
[2020-07-26] VITALS (11 sets, daily range): BP systolic 94–130; BP diastolic 65–81
[2020-07-26 07:20] LABS: MEAN CORPUSCULAR HGB 27.5 pg (27.0-31.0); MEAN CORPUSCULAR HGB CONC 31.9 g/dl (33.0-37.0); MEAN PLATELET VOLUME 11.6 fl (9.6-12.3); PLATELET COUNT AUTOMATED 217 10*3/uL (130-400); RED BLOOD COUNT 2.44 10*6/uL (4.10-5.10); WHITE BLOOD COUNT 11.2 10*3/uL (4.8-10.8)
[2020-07-26 07:22] LABS: MEAN CELL VOLUME 86.1 fl (81.0-99.0)
[2020-07-26 07:45] LABS: TOTAL CELLS COUNTED 100 #CELLS
[2020-07-26 07:46] LABS: OVALOCYTES FEW; PLATELET SUFFICIENCY NORMAL (NORMAL)
[2020-07-26 07:50] LABS: BUN 27 mg/dl (7-24); CHLORIDE 115 mmol/L (98-107); CREATININE 0.91 mg/dL (0.55-1.02); POTASSIUM 3.5 mmol/L (3.5-5.1); SODIUM 144 mmol/L (136-145)
[2020-07-26 15:03] LABS: BASO % 0.2 % (0.0-1.0); EOS % 0.1 % (1.0-4.0); HEMATOCRIT 24.1 % (37.0-47.0); LYMPH # 1.3 10*3/uL (1.3-4.4); LYMPH % 12.1 % (27.0-41.0); MEAN CELL VOLUME 86.1 fl (81.0-99.0); MEAN CORPUSCULAR HGB 28.6 pg (27.0-31.0); MEAN CORPUSCULAR HGB CONC 33.2 g/dl (33.0-37.0); MEAN PLATELET VOLUME 10.4 fl (9.6-12.3); MONO # 0.3 10*3/uL (0.1-1.0); MONO % 2.5 % (3.0-9.0); NEUT # 8.8 10*3/uL (2.3-7.9); NEUT % 83.6 % (47.0-73.0); PLATELET COUNT AUTOMATED 198 10*3/uL (130-400); RED CELL DISTRI WIDTH 15.9 % (0-14.5); WHITE BLOOD COUNT 10.5 10*3/uL (4.8-10.8)
[2020-07-27] VITALS: BP 115/73
[2020-07-27 07:33] LABS: BUN 25 mg/dl (7-24); CHLORIDE 116 mmol/L (98-107); CREATININE 0.71 mg/dL (0.55-1.02); POTASSIUM 3.9 mmol/L (3.5-5.1); SODIUM 144 mmol/L (136-145)
[2020-07-27 07:37] LABS: BASO % 0.2 % (0.0-1.0); EOS % 0.5 % (1.0-4.0); HEMATOCRIT 21.1 % (37.0-47.0); LYMPH # 1.1 10*3/uL (1.3-4.4); LYMPH % 18.4 % (27.0-41.0); MEAN CORPUSCULAR HGB 28.2 pg (27.0-31.0); MEAN CORPUSCULAR HGB CONC 34.1 g/dl (33.0-37.0); MEAN PLATELET VOLUME 11.3 fl (9.6-12.3); MONO # 0.2 10*3/uL (0.1-1.0); MONO % 3.2 % (3.0-9.0); NEUT # 4.6 10*3/uL (2.3-7.9); NEUT % 75.1 % (47.0-73.0); PLATELET COUNT AUTOMATED 156 10*3/uL (130-400); RED BLOOD COUNT 2.55 10*6/uL (4.10-5.10); WHITE BLOOD COUNT 6.2 10*3/uL (4.8-10.8)
[2020-07-27 07:39] LABS: MEAN CELL VOLUME 82.7 fl (81.0-99.0)
[2020-07-27 08:00] VITALS: BP 103/57
[2020-07-27 12:00] VITALS: BP 87/60
[2020-07-27 16:00] VITALS: BP 81/55
[2020-07-27 17:00] VITALS: BP 90/62
[2020-07-27 20:00] VITALS: BP 102/57
[2020-07-28] VITALS (11 sets, daily range): BP systolic 87–111; BP diastolic 48–62
[2020-07-28 07:01] LABS: MEAN CORPUSCULAR HGB 28.1 pg (27.0-31.0); MEAN CORPUSCULAR HGB CONC 32.1 g/dl (33.0-37.0); MEAN PLATELET VOLUME 10.7 fl (9.6-12.3); RED CELL DISTRI WIDTH 16.1 % (0-14.5); WHITE BLOOD COUNT 3.5 10*3/uL (4.8-10.8)
[2020-07-28 07:03] LABS: HEMATOCRIT 18.4 % (37.0-47.0); MEAN CELL VOLUME 87.6 fl (81.0-99.0); PLATELET COUNT AUTOMATED 107 10*3/uL (130-400)
[2020-07-28 07:36] LABS: BUN 21 mg/dl (7-24); CHLORIDE 114 mmol/L (98-107); POTASSIUM 3.8 mmol/L (3.5-5.1); SODIUM 142 mmol/L (136-145)
[2020-07-28 07:39] LABS: CREATININE 0.54 mg/dL (0.55-1.02)
[2020-07-28 08:18] LABS: OVALOCYTES FEW; PLATELET SUFFICIENCY LOW (NORMAL); ROULEAUX SLIGHT; TOTAL CELLS COUNTED 100 #CELLS
[2020-07-28 12:01] LABS: EOS # 0.1 10*3/uL (0.0-0.4); EOS % 1.3 % (1.0-4.0); LYMPH # 1.3 10*3/uL (1.3-4.4); LYMPH % 28.4 % (27.0-41.0); MEAN CELL VOLUME 88.8 fl (81.0-99.0); MEAN CORPUSCULAR HGB 29.3 pg (27.0-31.0); MEAN PLATELET VOLUME 10.6 fl (9.6-12.3); MONO # 0.2 10*3/uL (0.1-1.0); MONO % 3.4 % (3.0-9.0); NEUT % 64.1 % (47.0-73.0); PLATELET COUNT AUTOMATED 113 10*3/uL (130-400); RED BLOOD COUNT 2.59 10*6/uL (4.10-5.10); RED CELL DISTRI WIDTH 15.8 % (0-14.5); WHITE BLOOD COUNT 4.7 10*3/uL (4.8-10.8)
[2020-07-29] VITALS: BP 82/52
[2020-07-29 07:14] LABS: HEMATOCRIT 25.6 % (37.0-47.0); MEAN CELL VOLUME 87.4 fl (81.0-99.0); MEAN CORPUSCULAR HGB CONC 33.2 g/dl (33.0-37.0); MEAN PLATELET VOLUME 11.8 fl (9.6-12.3); PLATELET COUNT AUTOMATED 120 10*3/uL (130-400); RED BLOOD COUNT 2.93 10*6/uL (4.10-5.10); RED CELL DISTRI WIDTH 15.9 % (0-14.5); WHITE BLOOD COUNT 8.3 10*3/uL (4.8-10.8)
[2020-07-29 07:31] LABS: BUN 18 mg/dl (7-24); CHLORIDE 114 mmol/L (98-107); CREATININE 0.65 mg/dL (0.55-1.02); POTASSIUM 3.8 mmol/L (3.5-5.1); SODIUM 142 mmol/L (136-145)
[2020-07-29 07:53] LABS: PLATELET SUFFICIENCY LOW (NORMAL); ROULEAUX SLIGHT; TOTAL CELLS COUNTED 100 #CELLS
[2020-07-29 08:00] VITALS: BP 70/54; BP 80/40
[2020-07-29 12:00] VITALS: BP 88/59
[2020-07-29 16:00] VITALS: BP 90/46
[2020-07-29 20:00] VITALS: BP 97/63
[2020-07-30] VITALS (8 sets, daily range): BP systolic 97–125; BP diastolic 48–77
[2020-07-30 07:03] LABS: BASO % 0.2 % (0.0-1.0); EOS # 0.1 10*3/uL (0.0-0.4); EOS % 1.4 % (1.0-4.0); HEMATOCRIT 24.9 % (37.0-47.0); LYMPH # 0.9 10*3/uL (1.3-4.4); LYMPH % 9.8 % (27.0-41.0); MEAN CELL VOLUME 84.4 fl (81.0-99.0); MEAN CORPUSCULAR HGB 28.5 pg (27.0-31.0); MEAN CORPUSCULAR HGB CONC 33.7 g/dl (33.0-37.0); MEAN PLATELET VOLUME 11.4 fl (9.6-12.3); MONO # 0.4 10*3/uL (0.1-1.0); MONO % 4.6 % (3.0-9.0); NEUT # 7.8 10*3/uL (2.3-7.9); NEUT % 81.4 % (47.0-73.0); PLATELET COUNT AUTOMATED 89 10*3/uL (130-400); RED BLOOD COUNT 2.95 10*6/uL (4.10-5.10); WHITE BLOOD COUNT 9.6 10*3/uL (4.8-10.8)
[2020-07-30 07:08] LABS: BUN 20 mg/dl (7-24); CHLORIDE 114 mmol/L (98-107); CREATININE 0.57 mg/dL (0.55-1.02); POTASSIUM 3.4 mmol/L (3.5-5.1); SODIUM 138 mmol/L (136-145)
[2020-07-31 08:00] VITALS: BP 101/55
[2020-07-31 08:09] LABS: BASO % 0.1 % (0.0-1.0); EOS # 0.2 10*3/uL (0.0-0.4); EOS % 1.7 % (1.0-4.0); HEMATOCRIT 22.7 % (37.0-47.0); LYMPH # 0.7 10*3/uL (1.3-4.4); LYMPH % 7.2 % (27.0-41.0); MEAN CELL VOLUME 87.3 fl (81.0-99.0); MEAN CORPUSCULAR HGB 28.5 pg (27.0-31.0); MEAN CORPUSCULAR HGB CONC 32.6 g/dl (33.0-37.0); MEAN PLATELET VOLUME 12.7 fl (9.6-12.3); MONO # 0.4 10*3/uL (0.1-1.0); MONO % 4.4 % (3.0-9.0); NEUT # 8.4 10*3/uL (2.3-7.9); NEUT % 84.6 % (47.0-73.0); PLATELET COUNT AUTOMATED 94 10*3/uL (130-400); RED CELL DISTRI WIDTH 16.6 % (0-14.5)
[2020-07-31 08:21] LABS: BUN 23 mg/dl (7-24); CHLORIDE 115 mmol/L (98-107); CREATININE 0.74 mg/dL (0.55-1.02); POTASSIUM 3.7 mmol/L (3.5-5.1); SODIUM 142 mmol/L (136-145)
[2020-07-31 12:00] VITALS: BP 105/58
[2020-07-31 16:00] VITALS: BP 99/68
[2020-07-31 20:00] VITALS: BP 98/70
[2020-08-01] VITALS (8 sets, daily range): BP systolic 95–113; BP diastolic 59–83
[2020-08-01 06:46] LABS: BASO % 0.1 % (0.0-1.0); EOS # 0.1 10*3/uL (0.0-0.4); HEMATOCRIT 22.1 % (37.0-47.0); LYMPH # 0.6 10*3/uL (1.3-4.4); LYMPH % 6.6 % (27.0-41.0); MEAN CORPUSCULAR HGB 29.1 pg (27.0-31.0); MEAN PLATELET VOLUME 12.6 fl (9.6-12.3); MONO # 0.5 10*3/uL (0.1-1.0); MONO % 5.6 % (3.0-9.0); NEUT # 7.9 10*3/uL (2.3-7.9); NEUT % 85.2 % (47.0-73.0); PLATELET COUNT AUTOMATED 118 10*3/uL (130-400); RED BLOOD COUNT 2.51 10*6/uL (4.10-5.10); RED CELL DISTRI WIDTH 17.5 % (0-14.5); WHITE BLOOD COUNT 9.3 10*3/uL (4.8-10.8)
[2020-08-01 07:13] LABS: BUN 26 mg/dl (7-24); CHLORIDE 113 mmol/L (98-107); CREATININE 0.81 mg/dL (0.55-1.02); SODIUM 139 mmol/L (136-145)
[2020-08-02] VITALS: BP 109/70
[2020-08-02 04:00] VITALS: BP 115/75
[2020-08-02 08:00] VITALS: BP 121/73
[2020-08-02 12:00] VITALS: BP 120/63
[2020-08-02 16:00] VITALS: BP 129/73
[2020-08-02 20:00] VITALS: BP 120/88
[2020-08-03] VITALS: BP 107/76
[2020-08-03 04:00] VITALS: BP 115/75
[2020-08-03 06:19] LABS: BUN 18 mg/dl (7-24); CHLORIDE 111 mmol/L (98-107); CREATININE 0.77 mg/dL (0.55-1.02); SODIUM 137 mmol/L (136-145)
[2020-08-03 06:35] LABS: BASO % 0.3 % (0.0-1.0); EOS # 0.1 10*3/uL (0.0-0.4); EOS % 1.3 % (1.0-4.0); HEMATOCRIT 22.3 % (37.0-47.0); LYMPH # 0.7 10*3/uL (1.3-4.4); LYMPH % 9.6 % (27.0-41.0); MEAN CORPUSCULAR HGB 29.3 pg (27.0-31.0); MEAN CORPUSCULAR HGB CONC 31.8 g/dl (33.0-37.0); MEAN PLATELET VOLUME 12.9 fl (9.6-12.3); MONO # 0.4 10*3/uL (0.1-1.0); MONO % 5.4 % (3.0-9.0); NEUT # 6.4 10*3/uL (2.3-7.9); NEUT % 82.5 % (47.0-73.0); RED BLOOD COUNT 2.42 10*6/uL (4.10-5.10); RED CELL DISTRI WIDTH 18.1 % (0-14.5); WHITE BLOOD COUNT 7.7 10*3/uL (4.8-10.8)
[2020-08-03 06:40] LABS: MEAN CELL VOLUME 92.1 fl (81.0-99.0); PLATELET COUNT AUTOMATED 169 10*3/uL (130-400)
[2020-08-03 08:00] VITALS: BP 104/72
[2020-08-03 12:00] VITALS: BP 113/75
[2020-08-03 16:00] VITALS: BP 104/67
[2020-08-03 20:00] VITALS: BP 102/68
[2020-08-04] VITALS (10 sets, daily range): BP systolic 98–119; BP diastolic 64–83
[2020-08-04 06:54] LABS: MEAN CELL VOLUME 92.3 fl (81.0-99.0); MEAN CORPUSCULAR HGB 29.5 pg (27.0-31.0); PLATELET COUNT AUTOMATED 190 10*3/uL (130-400); WHITE BLOOD COUNT 8.2 10*3/uL (4.8-10.8)
[2020-08-04 06:56] LABS: HEMATOCRIT 20.3 % (37.0-47.0)
[2020-08-04 07:31] LABS: ALBUMIN 1.6 gm/dl (3.1-4.5); ALKALINE PHOSPHATASE 56 U/L (45-117); BUN 16 mg/dl (7-24); CHLORIDE 108 mmol/L (98-107); CREATININE 0.82 mg/dL (0.55-1.02); POTASSIUM 3.6 mmol/L (3.5-5.1); SGOT/AST 8 IU/L (3-35); SGPT/ALT 8 U/L (12-78); SODIUM 137 mmol/L (136-145); TOTAL PROTEIN 4.9 gm/dL (6.4-8.2)
[2020-08-04 07:57] LABS: BASOPHILS 1 % (0-1); PLATELET SUFFICIENCY NORMAL (NORMAL); TOTAL CELLS COUNTED 100 #CELLS
[2020-08-05] VITALS: BP 119/85
[2020-08-05 06:42] LABS: BASO % 0.3 % (0.0-1.0); EOS # 0.1 10*3/uL (0.0-0.4); HEMATOCRIT 25.9 % (37.0-47.0); LYMPH # 0.7 10*3/uL (1.3-4.4); LYMPH % 7.7 % (27.0-41.0); MEAN CORPUSCULAR HGB 29.1 pg (27.0-31.0); MEAN CORPUSCULAR HGB CONC 32.4 g/dl (33.0-37.0); MEAN PLATELET VOLUME 11.9 fl (9.6-12.3); MONO # 0.4 10*3/uL (0.1-1.0); MONO % 4.5 % (3.0-9.0); NEUT # 7.7 10*3/uL (2.3-7.9); NEUT % 86.1 % (47.0-73.0); PLATELET COUNT AUTOMATED 207 10*3/uL (130-400); RED BLOOD COUNT 2.89 10*6/uL (4.10-5.10); RED CELL DISTRI WIDTH 18.3 % (0-14.5); WHITE BLOOD COUNT 8.9 10*3/uL (4.8-10.8)
[2020-08-05 06:43] LABS: MEAN CELL VOLUME 89.6 fl (81.0-99.0)
[2020-08-05 08:00] VITALS: BP 112/63
[2020-08-05 12:00] VITALS: BP 110/58
[2020-08-05 16:00] VITALS: BP 119/77
[2020-08-05 20:00] VITALS: BP 133/83
[2020-08-06] VITALS: BP 106/72
[2020-08-06 06:26] LABS: BASO % 0.2 % (0.0-1.0); EOS # 0.1 10*3/uL (0.0-0.4); EOS % 1.1 % (1.0-4.0); HEMATOCRIT 24.6 % (37.0-47.0); LYMPH # 0.9 10*3/uL (1.3-4.4); LYMPH % 10.2 % (27.0-41.0); MEAN CELL VOLUME 90.1 fl (81.0-99.0); MEAN CORPUSCULAR HGB 29.3 pg (27.0-31.0); MEAN CORPUSCULAR HGB CONC 32.5 g/dl (33.0-37.0); MEAN PLATELET VOLUME 11.8 fl (9.6-12.3); MONO # 0.5 10*3/uL (0.1-1.0); MONO % 5.5 % (3.0-9.0); NEUT # 6.9 10*3/uL (2.3-7.9); NEUT % 82.6 % (47.0-73.0); PLATELET COUNT AUTOMATED 242 10*3/uL (130-400); RED BLOOD COUNT 2.73 10*6/uL (4.10-5.10); RED CELL DISTRI WIDTH 17.9 % (0-14.5); WHITE BLOOD COUNT 8.4 10*3/uL (4.8-10.8)
[2020-08-06 06:35] LABS: BUN 15 mg/dl (7-24); CHLORIDE 108 mmol/L (98-107); CREATININE 0.72 mg/dL (0.55-1.02); SODIUM 137 mmol/L (136-145)
[2020-08-06 08:00] VITALS: BP 107/64
[2020-08-06 11:27] LABS: HEMATOCRIT 25.8 % (37.0-47.0)
[2020-08-06 12:00] VITALS: BP 112/79
[2020-08-06] MEDS ORDERED: FEOSOL,FER300 MG/5 M PEG (12:02)
[2020-08-06] MEDS ORDERED: LOPRESSOR25 MG PEG (12:02)
[2020-08-06] MEDS ORDERED: TOPIRAMATE100 M2 PEG (12:14)
[2020-08-06] MEDS ORDERED: NATURE'S BLEND F1 MG PEG (12:14)
[2020-08-06] MEDS ORDERED: Carafate1 GM PEG (12:14)
[2020-08-06] MEDS ORDERED: CHOLESTYRAMINE P4 GM PEG (12:14)
[2020-08-06] MEDS ORDERED: PHOS-NAK PACKE1 EACH PEG (12:14)
[2020-08-06] MEDS ORDERED: VITAMIN D3125 MCG PEG (12:14)
[2020-08-06] MEDS ORDERED: VITAMIN C500 M4 PEG (12:14)
[2020-08-06] MEDS ORDERED: NEURONTIN600 MG PEG (12:16)
== END 2020-08-06 16:45 | DRG 241 ==
LOC: ED 10:30 → EDHOLD 13:32 → 5E 13:32 → EDHOLD 13:45 → 5E 07-23 01:21
PROVIDERS: Emergency Medicine; Family Medicine; Internal Medicine; Registered Nurse; Student in an Organized Health Care Education/Training Program; ADMIT Student in an Organized Health Care Education/Training Program; ATTEND Student in an Organized Health Care Education/Training Program
PROC: 0DBA8ZX Excision of Jejunum, Via Natural or Artificial Opening Endoscopic, Diagnostic (ICD-10-PCS; principal; 2020-07-25)
PROC: 0DB68ZX Excision of Stomach, Via Natural or Artificial Opening Endoscopic, Diagnostic (ICD-10-PCS; 2020-07-25)
PROC: 02HV33Z Insertion of Infusion Device into Superior Vena Cava, Percutaneous Approach (ICD-10-PCS; 2020-07-26)
PROC: 30233N1 Transfusion of Nonautologous Red Blood Cells into Peripheral Vein, Percutaneous Approach (ICD-10-PCS; 2020-07-28)
PROC: 0DJD8ZZ Inspection of Lower Intestinal Tract, Via Natural or Artificial Opening Endoscopic (ICD-10-PCS; 2020-07-30)
PROC: 0DH63UZ Insertion of Feeding Device into Stomach, Percutaneous Approach (ICD-10-PCS; 2020-08-01)
DX: K29.21 Alcoholic gastritis with bleeding (principal); K85.90 Acute pancreatitis without necrosis or infection, unspecified; G62.9 Polyneuropathy, unspecified; J45.909 Unspecified asthma, uncomplicated; J45.20 Mild intermittent asthma, uncomplicated; E43 Unspecified severe protein-calorie malnutrition; E87.6 Hypokalemia; N20.0 Calculus of kidney; R62.50 Unspecified lack of expected normal physiological development in childhood; E86.0 Dehydration; E83.42 Hypomagnesemia; Z20.822 Contact with and (suspected) exposure to COVID-19; K52.9 Noninfective gastroenteritis and colitis, unspecified; F32.9 Major depressive disorder, single episode, unspecified; F41.1 Generalized anxiety disorder; I10 Essential (primary) hypertension; D64.9 Anemia, unspecified; K76.0 Fatty (change of) liver, not elsewhere classified; E83.39 Other disorders of phosphorus metabolism; D69.6 Thrombocytopenia, unspecified; K25.4 Chronic or unspecified gastric ulcer with hemorrhage; K86.2 Cyst of pancreas; N17.0 Acute kidney failure with tubular necrosis; N39.0 Urinary tract infection, site not specified; K22.11 Ulcer of esophagus with bleeding; E44.0 Moderate protein-calorie malnutrition; K29.81 Duodenitis with bleeding; K44.9 Diaphragmatic hernia without obstruction or gangrene; E87.8 Other disorders of electrolyte and fluid balance, not elsewhere classified; R13.10 Dysphagia, unspecified; Z62 Problems related to upbringing; K26.4 Chronic or unspecified duodenal ulcer with hemorrhage; K28.4 Chronic or unspecified gastrojejunal ulcer with hemorrhage; E66.9 Obesity, unspecified; Z86.73 Personal history of transient ischemic attack (TIA), and cerebral infarction without residual deficits; Z88.0 Allergy status to penicillin; Z88.6 Allergy status to analgesic agent; Z90.49 Acquired absence of other specified parts of digestive tract; Z82.49 Family history of ischemic heart disease and other diseases of the circulatory system; Z82.0 Family history of epilepsy and other diseases of the nervous system; Z79.899 Other long term (current) drug therapy; I47.2 Ventricular tachycardia

== ENCOUNTER 2020-08-21 02:17 | Emergency (ER) | payer OTHER ==
[~2020-08-21 02:17] MED LIST changes: +CHOLESTYRAMINE P4 GM PEG; +CHOLESTYRAMINE P4 GM PO; +Carafate1 GM PEG; +FEOSOL,FER300 MG/5 M PEG; +LOPRESSOR25 MG PEG; +NATURE'S BLEND F1 MG PEG; +NEURONTIN600 MG PEG; +PHOS-NAK PACKE1 EACH PEG; +TOPIRAMATE100 M2 PEG; +VITAMIN C500 M4 PEG; +VITAMIN D3125 MCG PEG; +VITAMIN D3125 MCG PO
== END 2020-08-21 03:30 | disposition home or self-care (01) ==
LOC: ED 02:17
DX: T85.898A Other specified complication of other internal prosthetic devices, implants and grafts, initial encounter (principal); F41.9 Anxiety disorder, unspecified; F32.9 Major depressive disorder, single episode, unspecified; I10 Essential (primary) hypertension; Y92.89 Other specified places as the place of occurrence of the external cause

== ENCOUNTER 2020-08-26 14:06 | Inpatient (IN) | payer OTHER ==
[2020-08-26] VITALS (8 sets, daily range): BP systolic 106–141; BP diastolic 63–82
[~2020-08-26] VITALS: Ht 170.1 cm; Wt 78.6 kg
[2020-08-26 14:40] LABS: BASO # 0.1 10*3/uL (0.0-0.1); BASO % 0.4 % (0.0-1.0); EOS # 0.1 10*3/uL (0.0-0.4); EOS % 0.6 % (1.0-4.0); HEMATOCRIT 27.7 % (37.0-47.0); LYMPH # 1.3 10*3/uL (1.3-4.4); LYMPH % 8.2 % (27.0-41.0); MEAN CELL VOLUME 90.5 fl (81.0-99.0); MEAN CORPUSCULAR HGB 28.4 pg (27.0-31.0); MEAN CORPUSCULAR HGB CONC 31.4 g/dl (33.0-37.0); MEAN PLATELET VOLUME 10.9 fl (9.6-12.3); MONO # 0.9 10*3/uL (0.1-1.0); MONO % 5.3 % (3.0-9.0); NEUT # 13.6 10*3/uL (2.3-7.9); NEUT % 84.3 % (47.0-73.0); PLATELET COUNT AUTOMATED 445 10*3/uL (130-400); RED BLOOD COUNT 3.06 10*6/uL (4.10-5.10); RED CELL DISTRI WIDTH 15.3 % (0-14.5); WHITE BLOOD COUNT 16.2 10*3/uL (4.8-10.8)
[2020-08-26 14:55] LABS: ALBUMIN 2.1 gm/dl (3.1-4.5); ALKALINE PHOSPHATASE 139 U/L (45-117); BUN 28 mg/dl (7-24); CHLORIDE 107 mmol/L (98-107); CREATININE 1.03 mg/dL (0.55-1.02); LIPASE 409 U/L (73-393); POTASSIUM 3.8 mmol/L (3.5-5.1); SGOT/AST 10 IU/L (3-35); SGPT/ALT 12 U/L (12-78); SODIUM 139 mmol/L (136-145); TOTAL PROTEIN 6.6 gm/dL (6.4-8.2)
[2020-08-26 14:57] LABS: TROPONIN I < 0.015 ng/ml (<0.045)
[2020-08-26 14:58] LABS: ACT PARTIAL THROMBO TIME 24.4 SECONDS (20.0-32.1)
[2020-08-26 16:05] LABS: BILIRUBIN Negative (Negative); BLOOD Negative (Negative); CLARITY Cloudy (Clear); COLOR Yellow (Yellow); GLUCOSE Negative (Negative); KETONE Negative (Negative); LEUKO ESTERASE 1+ (Negative); NITRITE Negative (Negative); PH 6.5 (4.5-8.0); UROBILINOGEN 0.2 E.U./dl (0.0-1.0)
[2020-08-26 16:17] LABS: BACTERIA 4+; RBC 0-2 rbc/hpf (0-2); WBC 16-20 wbc/hpf (0-5)
[2020-08-26] MEDS ORDERED: PROVENTIL HFA6.7 GM INH (21:09)
[2020-08-26] MEDS ORDERED: FAMOTIDINE40 MG PEG (21:09)
[2020-08-26] MEDS ORDERED: OYSTER SHELL 51 EAC1 PEG (21:11)
[2020-08-27] VITALS: BP 117/73; BP 124/76
[2020-08-27 00:15] VITALS: BP 117/53; BP 117/73
[2020-08-27] MEDS ORDERED: TYLENOL325 M1 PEG (03:17)
[2020-08-27 06:20] LABS: BASO # 0.1 10*3/uL (0.0-0.1); BASO % 0.5 % (0.0-1.0); EOS # 0.1 10*3/uL (0.0-0.4); EOS % 0.5 % (1.0-4.0); HEMATOCRIT 23.7 % (37.0-47.0); LYMPH # 1.1 10*3/uL (1.3-4.4); MEAN CELL VOLUME 91.2 fl (81.0-99.0); MEAN CORPUSCULAR HGB 28.1 pg (27.0-31.0); MEAN CORPUSCULAR HGB CONC 30.8 g/dl (33.0-37.0); MONO # 0.7 10*3/uL (0.1-1.0); MONO % 6.3 % (3.0-9.0); NEUT # 8.9 10*3/uL (2.3-7.9); NEUT % 80.9 % (47.0-73.0); PLATELET COUNT AUTOMATED 368 10*3/uL (130-400); RED CELL DISTRI WIDTH 15.3 % (0-14.5)
[2020-08-27 06:39] LABS: CHLORIDE 111 mmol/L (98-107); POTASSIUM 3.6 mmol/L (3.5-5.1); SODIUM 142 mmol/L (136-145)
[2020-08-27 06:51] LABS: ALBUMIN 1.7 gm/dl (3.1-4.5); ALKALINE PHOSPHATASE 113 U/L (45-117); BUN 25 mg/dl (7-24); SGOT/AST 9 IU/L (3-35); SGPT/ALT 9 U/L (12-78); TOTAL PROTEIN 5.7 gm/dL (6.4-8.2)
[2020-08-27 08:00] VITALS: BP 100/72
[2020-08-27 12:00] VITALS: BP 126/82
[2020-08-27 16:00] VITALS: BP 112/78
[2020-08-27 20:00] VITALS: BP 120/73
[2020-08-28] VITALS: BP 110/70
[2020-08-28 06:20] LABS: BASO # 0.1 10*3/uL (0.0-0.1); BASO % 0.6 % (0.0-1.0); EOS # 0.1 10*3/uL (0.0-0.4); EOS % 0.6 % (1.0-4.0); HEMATOCRIT 23.1 % (37.0-47.0); LYMPH # 0.9 10*3/uL (1.3-4.4); MEAN CELL VOLUME 90.2 fl (81.0-99.0); MEAN CORPUSCULAR HGB 27.7 pg (27.0-31.0); MEAN CORPUSCULAR HGB CONC 30.7 g/dl (33.0-37.0); MEAN PLATELET VOLUME 10.8 fl (9.6-12.3); MONO # 0.6 10*3/uL (0.1-1.0); MONO % 5.9 % (3.0-9.0); NEUT % 83.4 % (47.0-73.0); PLATELET COUNT AUTOMATED 361 10*3/uL (130-400); RED BLOOD COUNT 2.56 10*6/uL (4.10-5.10); RED CELL DISTRI WIDTH 15.1 % (0-14.5); WHITE BLOOD COUNT 10.8 10*3/uL (4.8-10.8)
[2020-08-28 06:36] LABS: BUN 25 mg/dl (7-24); CHLORIDE 110 mmol/L (98-107); CREATININE 0.94 mg/dL (0.55-1.02); POTASSIUM 3.3 mmol/L (3.5-5.1); SODIUM 141 mmol/L (136-145)
[2020-08-28 08:00] VITALS: BP 128/80
[2020-08-28 12:00] VITALS: BP 113/72
[2020-08-28 16:00] VITALS: BP 110/77; BP 127/80
[2020-08-28 20:00] VITALS: BP 137/80
[2020-08-29] VITALS (10 sets, daily range): BP systolic 108–146; BP diastolic 70–86
[2020-08-29 06:32] LABS: BASO # 0.1 10*3/uL (0.0-0.1); BASO % 0.6 % (0.0-1.0); EOS # 0.1 10*3/uL (0.0-0.4); EOS % 1.1 % (1.0-4.0); HEMATOCRIT 23.7 % (37.0-47.0); MEAN CELL VOLUME 91.5 fl (81.0-99.0); MEAN CORPUSCULAR HGB 27.8 pg (27.0-31.0); MEAN CORPUSCULAR HGB CONC 30.4 g/dl (33.0-37.0); MEAN PLATELET VOLUME 11.1 fl (9.6-12.3); MONO # 0.6 10*3/uL (0.1-1.0); PLATELET COUNT AUTOMATED 347 10*3/uL (130-400); RED BLOOD COUNT 2.59 10*6/uL (4.10-5.10); RED CELL DISTRI WIDTH 15.1 % (0-14.5); WHITE BLOOD COUNT 8.9 10*3/uL (4.8-10.8)
[2020-08-29 06:50] LABS: BUN 23 mg/dl (7-24); CHLORIDE 112 mmol/L (98-107); CREATININE 1.05 mg/dL (0.55-1.02); POTASSIUM 3.3 mmol/L (3.5-5.1); SODIUM 142 mmol/L (136-145)
[2020-08-29 16:00] LABS: BASO # 0.1 10*3/uL (0.0-0.1); BASO % 0.6 % (0.0-1.0); EOS # 0.1 10*3/uL (0.0-0.4); EOS % 1.1 % (1.0-4.0); LYMPH % 9.5 % (27.0-41.0); MEAN CORPUSCULAR HGB 28.4 pg (27.0-31.0); MEAN CORPUSCULAR HGB CONC 32.1 g/dl (33.0-37.0); MEAN PLATELET VOLUME 10.4 fl (9.6-12.3); MONO # 0.6 10*3/uL (0.1-1.0); MONO % 5.9 % (3.0-9.0); NEUT # 8.5 10*3/uL (2.3-7.9); NEUT % 81.9 % (47.0-73.0); PLATELET COUNT AUTOMATED 371 10*3/uL (130-400); RED BLOOD COUNT 3.17 10*6/uL (4.10-5.10); RED CELL DISTRI WIDTH 14.6 % (0-14.5); WHITE BLOOD COUNT 10.4 10*3/uL (4.8-10.8)
[2020-08-29 16:04] LABS: MEAN CELL VOLUME 88.3 fl (81.0-99.0)
[2020-08-30] VITALS: BP 121/72
[2020-08-30 06:19] LABS: BASO # 0.1 10*3/uL (0.0-0.1); BASO % 0.5 % (0.0-1.0); EOS # 0.1 10*3/uL (0.0-0.4); EOS % 0.6 % (1.0-4.0); HEMATOCRIT 28.5 % (37.0-47.0); LYMPH # 1.1 10*3/uL (1.3-4.4); MEAN CELL VOLUME 88.5 fl (81.0-99.0); MEAN CORPUSCULAR HGB 28.3 pg (27.0-31.0); MEAN CORPUSCULAR HGB CONC 31.9 g/dl (33.0-37.0); MEAN PLATELET VOLUME 11.1 fl (9.6-12.3); MONO # 0.7 10*3/uL (0.1-1.0); MONO % 6.1 % (3.0-9.0); NEUT % 81.5 % (47.0-73.0); PLATELET COUNT AUTOMATED 388 10*3/uL (130-400); RED BLOOD COUNT 3.22 10*6/uL (4.10-5.10); RED CELL DISTRI WIDTH 14.9 % (0-14.5)
[2020-08-30 06:34] LABS: BUN 23 mg/dl (7-24); CHLORIDE 110 mmol/L (98-107); CREATININE 1.03 mg/dL (0.55-1.02); POTASSIUM 3.4 mmol/L (3.5-5.1); SODIUM 142 mmol/L (136-145)
[2020-08-30 08:00] VITALS: BP 130/78
[2020-08-30 12:00] VITALS: BP 128/83
[2020-08-30 16:00] VITALS: BP 136/82
[2020-08-30 20:00] VITALS: BP 116/73
[2020-08-31] VITALS: BP 127/77
[2020-08-31 06:00] LABS: BUN 21 mg/dl (7-24); CHLORIDE 111 mmol/L (98-107); POTASSIUM 3.6 mmol/L (3.5-5.1); SODIUM 144 mmol/L (136-145)
[2020-08-31 06:01] LABS: BASO # 0.1 10*3/uL (0.0-0.1); BASO % 0.4 % (0.0-1.0); EOS # 0.1 10*3/uL (0.0-0.4); EOS % 0.6 % (1.0-4.0); HEMATOCRIT 27.4 % (37.0-47.0); LYMPH # 1.1 10*3/uL (1.3-4.4); LYMPH % 8.8 % (27.0-41.0); MEAN CELL VOLUME 90.4 fl (81.0-99.0); MEAN CORPUSCULAR HGB 28.4 pg (27.0-31.0); MEAN CORPUSCULAR HGB CONC 31.4 g/dl (33.0-37.0); MONO # 0.7 10*3/uL (0.1-1.0); MONO % 5.7 % (3.0-9.0); NEUT # 10.6 10*3/uL (2.3-7.9); NEUT % 83.6 % (47.0-73.0); PLATELET COUNT AUTOMATED 334 10*3/uL (130-400); RED BLOOD COUNT 3.03 10*6/uL (4.10-5.10); RED CELL DISTRI WIDTH 15.1 % (0-14.5); WHITE BLOOD COUNT 12.6 10*3/uL (4.8-10.8)
[2020-08-31 08:00] VITALS: BP 134/79
[2020-08-31 12:00] VITALS: BP 106/69
[2020-08-31 16:00] VITALS: BP 122/77
[2020-08-31 20:00] VITALS: BP 117/72
[2020-09-01] VITALS: BP 107/73
[2020-09-01 06:23] LABS: BASO # 0.1 10*3/uL (0.0-0.1); BASO % 0.7 % (0.0-1.0); EOS # 0.1 10*3/uL (0.0-0.4); EOS % 1.3 % (1.0-4.0); HEMATOCRIT 26.6 % (37.0-47.0); LYMPH # 1.2 10*3/uL (1.3-4.4); LYMPH % 11.7 % (27.0-41.0); MEAN CELL VOLUME 90.5 fl (81.0-99.0); MEAN CORPUSCULAR HGB 28.9 pg (27.0-31.0); MEAN PLATELET VOLUME 11.1 fl (9.6-12.3); MONO # 0.6 10*3/uL (0.1-1.0); NEUT # 7.8 10*3/uL (2.3-7.9); NEUT % 79.6 % (47.0-73.0); PLATELET COUNT AUTOMATED 320 10*3/uL (130-400); RED BLOOD COUNT 2.94 10*6/uL (4.10-5.10); RED CELL DISTRI WIDTH 15.4 % (0-14.5); WHITE BLOOD COUNT 9.8 10*3/uL (4.8-10.8)
[2020-09-01 06:37] LABS: BUN 16 mg/dl (7-24); CHLORIDE 112 mmol/L (98-107); CREATININE 0.96 mg/dL (0.55-1.02); POTASSIUM 3.7 mmol/L (3.5-5.1); SODIUM 141 mmol/L (136-145)
[2020-09-01 08:00] VITALS: BP 120/76
[2020-09-01 12:00] VITALS: BP 125/76
[2020-09-01 16:00] VITALS: BP 128/67
[2020-09-01 20:00] VITALS: BP 116/71
[2020-09-02] VITALS: BP 115/66
[2020-09-02 06:10] LABS: BASO # 0.1 10*3/uL (0.0-0.1); BASO % 0.6 % (0.0-1.0); EOS # 0.1 10*3/uL (0.0-0.4); EOS % 1.3 % (1.0-4.0); LYMPH # 1.1 10*3/uL (1.3-4.4); LYMPH % 11.9 % (27.0-41.0); MEAN CELL VOLUME 87.5 fl (81.0-99.0); MEAN CORPUSCULAR HGB 28.3 pg (27.0-31.0); MEAN CORPUSCULAR HGB CONC 32.3 g/dl (33.0-37.0); MEAN PLATELET VOLUME 11.6 fl (9.6-12.3); MONO # 0.6 10*3/uL (0.1-1.0); MONO % 5.9 % (3.0-9.0); NEUT # 7.4 10*3/uL (2.3-7.9); NEUT % 79.1 % (47.0-73.0); PLATELET COUNT AUTOMATED 287 10*3/uL (130-400); RED BLOOD COUNT 2.97 10*6/uL (4.10-5.10); RED CELL DISTRI WIDTH 15.4 % (0-14.5); WHITE BLOOD COUNT 9.3 10*3/uL (4.8-10.8)
[2020-09-02 06:12] LABS: BUN 17 mg/dl (7-24); CHLORIDE 115 mmol/L (98-107); CREATININE 0.98 mg/dL (0.55-1.02); POTASSIUM 4.1 mmol/L (3.5-5.1); SODIUM 145 mmol/L (136-145)
[2020-09-02 07:48] LABS: OVALOCYTES FEW; PLATELET SUFFICIENCY NORMAL (NORMAL); TOTAL CELLS COUNTED 100 #CELLS
[2020-09-02 08:00] VITALS: BP 101/62
[2020-09-02 12:00] VITALS: BP 143/84
[2020-09-02 16:00] VITALS: BP 126/77
[2020-09-02 20:00] VITALS: BP 144/95
[2020-09-02 20:15] VITALS: BP 140/92
[2020-09-03] VITALS: BP 118/77
[2020-09-03 07:04] LABS: ALBUMIN 2.2 gm/dl (3.1-4.5); ALKALINE PHOSPHATASE 89 U/L (45-117); BUN 18 mg/dl (7-24); CHLORIDE 113 mmol/L (98-107); CREATININE 1.02 mg/dL (0.55-1.02); POTASSIUM 4.4 mmol/L (3.5-5.1); SGOT/AST 19 IU/L (3-35); SGPT/ALT 10 U/L (12-78); SODIUM 142 mmol/L (136-145); TOTAL PROTEIN 6.1 gm/dL (6.4-8.2)
[2020-09-03 07:52] LABS: BASO # 0.1 10*3/uL (0.0-0.1); BASO % 0.7 % (0.0-1.0); EOS # 0.1 10*3/uL (0.0-0.4); EOS % 1.1 % (1.0-4.0); HEMATOCRIT 29.4 % (37.0-47.0); LYMPH # 1.1 10*3/uL (1.3-4.4); LYMPH % 10.1 % (27.0-41.0); MEAN CELL VOLUME 90.2 fl (81.0-99.0); MEAN CORPUSCULAR HGB 27.9 pg (27.0-31.0); MONO # 0.6 10*3/uL (0.1-1.0); MONO % 5.6 % (3.0-9.0); NEUT # 8.7 10*3/uL (2.3-7.9); NEUT % 81.8 % (47.0-73.0); PLATELET COUNT AUTOMATED 335 10*3/uL (130-400); RED BLOOD COUNT 3.26 10*6/uL (4.10-5.10); RED CELL DISTRI WIDTH 15.4 % (0-14.5); WHITE BLOOD COUNT 10.6 10*3/uL (4.8-10.8)
[2020-09-03 08:00] VITALS: BP 114/60
[2020-09-03 12:00] VITALS: BP 93/76
[2020-09-03 16:00] VITALS: BP 118/82
[2020-09-03 20:00] VITALS: BP 101/61
[2020-09-04] VITALS: BP 113/72
[2020-09-04 06:21] LABS: BASO % 0.4 % (0.0-1.0); EOS # 0.2 10*3/uL (0.0-0.4); EOS % 1.6 % (1.0-4.0); LYMPH # 1.3 10*3/uL (1.3-4.4); LYMPH % 12.6 % (27.0-41.0); MEAN CELL VOLUME 91.5 fl (81.0-99.0); MEAN CORPUSCULAR HGB 28.1 pg (27.0-31.0); MEAN CORPUSCULAR HGB CONC 30.7 g/dl (33.0-37.0); MEAN PLATELET VOLUME 10.9 fl (9.6-12.3); MONO # 0.6 10*3/uL (0.1-1.0); NEUT # 7.9 10*3/uL (2.3-7.9); NEUT % 78.8 % (47.0-73.0); PLATELET COUNT AUTOMATED 313 10*3/uL (130-400); RED BLOOD COUNT 3.17 10*6/uL (4.10-5.10); RED CELL DISTRI WIDTH 15.3 % (0-14.5)
[2020-09-04 06:31] LABS: BUN 18 mg/dl (7-24); CHLORIDE 111 mmol/L (98-107); CREATININE 0.93 mg/dL (0.55-1.02); POTASSIUM 3.8 mmol/L (3.5-5.1); SODIUM 141 mmol/L (136-145)
[2020-09-04 08:00] VITALS: BP 112/79
[2020-09-04 12:00] VITALS: BP 126/70
[2020-09-04 16:21] VITALS: BP 115/78
[2020-09-04 20:00] VITALS: BP 113/72
[2020-09-05] VITALS: BP 105/64
[2020-09-05 08:00] VITALS: BP 116/81
[2020-09-05 08:24] LABS: BASO % 0.5 % (0.0-1.0); EOS # 0.2 10*3/uL (0.0-0.4); EOS % 1.7 % (1.0-4.0); HEMATOCRIT 29.7 % (37.0-47.0); LYMPH % 11.7 % (27.0-41.0); MEAN CELL VOLUME 88.7 fl (81.0-99.0); MEAN CORPUSCULAR HGB 28.1 pg (27.0-31.0); MEAN CORPUSCULAR HGB CONC 31.6 g/dl (33.0-37.0); MONO # 0.5 10*3/uL (0.1-1.0); MONO % 5.8 % (3.0-9.0); NEUT % 79.6 % (47.0-73.0); PLATELET COUNT AUTOMATED 302 10*3/uL (130-400); RED BLOOD COUNT 3.35 10*6/uL (4.10-5.10); RED CELL DISTRI WIDTH 15.5 % (0-14.5); WHITE BLOOD COUNT 8.8 10*3/uL (4.8-10.8)
[2020-09-05 08:50] LABS: ALBUMIN 2.3 gm/dl (3.1-4.5); ALKALINE PHOSPHATASE 81 U/L (45-117); BUN 18 mg/dl (7-24); CHLORIDE 109 mmol/L (98-107); CREATININE 0.84 mg/dL (0.55-1.02); POTASSIUM 3.9 mmol/L (3.5-5.1); SGOT/AST 7 IU/L (3-35); SGPT/ALT 9 U/L (12-78); SODIUM 139 mmol/L (136-145); TOTAL PROTEIN 6.3 gm/dL (6.4-8.2)
[2020-09-05 12:00] VITALS: BP 117/81
[2020-09-05 16:00] VITALS: BP 108/80
[2020-09-05] MEDS ORDERED: FEOSOL,FER300 MG/5 M PEG (16:19)
== END 2020-09-05 18:25 | DRG 720 ==
LOC: ED 14:06 → 4E 17:39 → EDHOLD 17:39 → 4E 23:22
PROVIDERS: Emergency Medicine; Hospitalist; Internal Medicine; Registered Nurse; ADMIT Internal Medicine; ATTEND Internal Medicine
PROC: 30233N1 Transfusion of Nonautologous Red Blood Cells into Peripheral Vein, Percutaneous Approach (ICD-10-PCS; principal; 2020-08-29)
DX: A41.9 Sepsis, unspecified organism (principal); E43 Unspecified severe protein-calorie malnutrition; G93.41 Metabolic encephalopathy; N17.9 Acute kidney failure, unspecified; N30.00 Acute cystitis without hematuria; R65.20 Severe sepsis without septic shock; J45.909 Unspecified asthma, uncomplicated; F41.1 Generalized anxiety disorder; G62.9 Polyneuropathy, unspecified; D64.9 Anemia, unspecified; D47.3 Essential (hemorrhagic) thrombocythemia; K76.0 Fatty (change of) liver, not elsewhere classified; R41.0 Disorientation, unspecified; F33.9 Major depressive disorder, recurrent, unspecified; E87.6 Hypokalemia; B96.20 Unspecified Escherichia coli [E. coli] as the cause of diseases classified elsewhere; S31.000A Unspecified open wound of lower back and pelvis without penetration into retroperitoneum, initial encounter; R41.9 Unspecified symptoms and signs involving cognitive functions and awareness; Z20.822 Contact with and (suspected) exposure to COVID-19; Z88.0 Allergy status to penicillin; Z88.2 Allergy status to sulfonamides; Z93.1 Gastrostomy status; Z90.49 Acquired absence of other specified parts of digestive tract; Z82.49 Family history of ischemic heart disease and other diseases of the circulatory system; Z81.8 Family history of other mental and behavioral disorders; Z86.73 Personal history of transient ischemic attack (TIA), and cerebral infarction without residual deficits; X58.XXXA Exposure to other specified factors, initial encounter; Y93.89 Activity, other specified; Y92.89 Other specified places as the place of occurrence of the external cause; Y99.8 Other external cause status; Z68.27 Body mass index [BMI] 27.0-27.9, adult